=== PATIENT | female | born 1935 | race Caucasian/White ===

== ENCOUNTER 2016-09-12 08:18 | Inpatient (IN) | payer MEDICARE, OTHER ==
[2016-09-12] MEDS ORDERED: guaiFENesin 100 MG/5 ML Soln 5 ML UD Cup PO PRN (17:33)
[2016-09-12] MEDS ORDERED: Morphine 2 MG/ML Syringe IVPUSH PRN (17:33)
[2016-09-12] MEDS ORDERED: Docusate Sodium 100 MG Cap PO PRN (17:33)
[2016-09-12] MEDS ORDERED: Sodium Chloride 0.65% Nasal Spray 45 ML Bottle NAS PRN (17:33)
[2016-09-12] MEDS ORDERED: Sodium Chloride 0.9% 10 ML Syringe FLUSH PRN (17:33)
[2016-09-12] MEDS ORDERED: Polyethylene Glycol 3350 Powder 17 GM Packet PO PRN (17:33)
[2016-09-12] MEDS ORDERED: Magnesium Hydroxide 400 MG/5 ML Susp 30 ML Cup PO PRN (17:33)
[2016-09-12] MEDS ORDERED: Ondansetron 4 MG Tab.DIS PO PRN (17:45)
--- NOTE | 2016-09-12 17:45 | PCM.HP ---
H&P History of Present Illness - General Date of Service: 09/12/16 Admit Problem/Dx: Admission Diagnosis/Problem Admission Diagnosis/Problem Hip pain Source of Information: Patient History Limitations: Reports: No limitations - History of Present Illness Initial Comments - Free Text/Narative: 9-year-old female with the past medical history over a drip fibrillation, coronary artery disease without stent, GERD, depression, possible dementia presented to swing bed for postsurgical care after she underwent elective right total hip arthroplasty and abductor repair on 09/09/[address] Rg. She had an eventful postop recovery. the patient declined any symptoms other than some right hip pain which she did not want pain medicine for at this time. Right Hip Pain Score (Numeric/FACES): 6 - Related Data Allergies/Adverse Reactions: Allergies Allergy/AdvReac Type Severity Reaction Status Date / Time amoxicillin [Amoxicillin] Allergy Intermediate Nausea and Verified 09/12/16 10: 34 Vomiting codeine Allergy Intermediate Nausea and Verified 09/12/16 10:34 Vomiting propoxyphene Allergy Intermediate Nausea and Verified 09/12/16 10:34 Vomiting nitrofurantoin Allergy Nausea and Verified 09/12/16 10:34 Vomiting tramadol Allergy Nausea and Verified 09/12/16 10:34 Vomiting Home Medications: Home Meds Donepezil [Aricept] 10 mg PO BEDTIME 04/16/13 [History] Gabapentin [Neurontin] 300 mg PO TID 04/16/13 [History] Montelukast [Singulair] 10 mg PO BEDTIME 04/16/13 [History] Omeprazole 20 mg PO DAILY 04/16/13 [History] Potassium Chloride [Klor-Con 10] 10 meq PO BID 04/16/13 [History] Warfarin [Coumadin] 4 mg PO DAILY 04/16/13 [History] atorvaSTATin [Lipitor] 20 mg PO BEDTIME 04/16/13 [History] buPROPion [Wellbutrin XL] 150 mg PO DAILY 04/16/13 [History] Acetaminophen [Tylenol Extra Strength] 1,000 mg PO BID 09/12/16 [History] Ascorbate Calcium [Vitamin C] 500 mg PO DAILY 09/12/16 [History] Calcium Carbonate/Vitamin D3 [Calcium 600 + Vit D 200] 1 tab PO DAILY 09/12/16 [ History] Cranberry Con&Fr/B.Coag/C/Calc [Cranberry-Probiotic] 1 tab PO DAILY 09/12/16 [ History] Cyanocobalamin (Vitamin B-12) [Vitamin B-12] 500 mg PO BEDTIME 09/12/16 [History ] Estrogens, Conjugated [Premarin Vaginal Crm] 1 cap VAG .TWICE A WEEK 09/12/16 [ History] L.acidoph,Paracasei, B.lactis [Probiotic] 1 each PO BID 09/12/16 [History] LORazepam [Ativan] 1 mg PO BEDTIME PRN 09/12/16 [History] Ondansetron HCl [Zofran] 4 mg PO Q8HR PRN 09/12/16 [History] Sennosides/Docusate Sodium [Senna-Docusate Sodium Tablet] 2 tab PO BID 09/12/16 [History] oxyCODONE 10 mg PO Q4H PRN 09/12/16 [History] Past Medical History HEENT History: Reports: Impaired vision Cardiovascular History: Reports: Afib, CAD, Heart Failure, High cholesterol, Pacemaker Gastrointestinal History: Reports: GERD Genitourinary History: Reports: Urinary incontinence, UTI, recurrent, Other ( see below) Other Genitourinary History: overactive bladder INSOLE CEMENTER History: Reports: , Other (see below) Other OB/BYN History: ovarian cyst removal Musculoskeletal History: Reports: Back pain, chronic, Fibromyalgia, Osteoarthritis Psychiatric History: Reports: Anxiety, Depression Endocrine/Metabolic History: Reports: Obesity/BMI 30+ Hematologic History: Reports: Anemia, B12 deficiency - Infectious Disease History Infectious Disease History: Reports: Chicken pox, Measles, Mumps - Past Surgical History GI Surgical History: Reports: Appendectomy Female Surgical History: Reports: Hysterectomy, Other (see below) Other Female Surgeries/Procedures: cystourethroscopy Musculoskeletal Surgical History: Reports: Knee replacement, Other (see below) Other Musculoskeletal Surgeries/Procedures:: total right and left knee replacement, spinal stenosis, bursitis of right hip Social & Family History - Family History Family Medical History: Noncontributory - Tobacco Use Smoking Status *Q: Never Smoker Second Hand Smoke Exposure: No - Caffeine Use Caffeine Use: Reports: Coffee - Recreational Drug Use Recreational Drug Use: No H&P Review of Systems - Review of Systems: Review Of Systems: See Below General: Reports: no symptoms HEENT: Reports: no symptoms Pulmonary: Reports: No Symptoms Cardiovascular: Reports: no symptoms Gastrointestinal: Reports: No symptoms Genitourinary: Reports: no symptoms Musculoskeletal: Reports: no symptoms (except for the right hip pain from surgery) Skin: Reports: no symptoms Psychiatric: Reports: no symptoms Neurological: Reports: No Symptoms Hematologic/Lymphatic: Reports: no symptoms Immunologic: Reports: no symptoms Exam - Exam Exam: See Below - Vital Signs Vital Signs: Last Vital Signs Temp 37.4 C 09/12/16 15:37 Pulse 70 09/12/16 15:37 Resp 18 09/12/16 15:37 BP 132/65 09/12/16 15:37 Pulse Ox 99 09/12/16 15:37 Weight: 88.904 kg - Exam General: alert, oriented, cooperative. No: mild distress, moderate distress, severe distress, sedated, lethargic, obtunded HEENT: Conjunctiva clear, EACs clear, EOMI, Hearing intact, Mucosa moist & pink , Nares patent, Normal nasal septum, Posterior pharynx clear, Pupils equal, Pupils reactive, TMs clear Neck: supple, trachea midline Lungs: Clear to auscultation, Normal respiratory effort Cardiovascular: regular rate, regular rhythm Abdomen: normal bowel sounds, soft. No: organomegaly, peritoneal signs, distention, guarding, rigidity, rebound, tenderness (Female) Exam: Deferred Rectal (Female) Exam: Deferred Back Exam: normal inspection, full range of motion Extremities: normal pulses, other (right hip the dressing is in clean and intact there is a ecchymosis around the incision. No signs of infection. There is expected postsurgical edema in the right lower extremity). No: clubbing, cyanosis, calf tenderness Neurological: cranial nerves intact, strength equal bilateral Neuro Extensive - Mental Status: alert, oriented x3, normal mood/affect, normal cognition Neuro Extensive - Motor, Sensory, Reflexes: CN II-XII intact, normal reflexes Psychiatric: alert, normal affect, normal mood *Q Meaningful Use (ADM) - VTE *Q VTE Criteria *Q: - Stroke *Q Stroke Criteria *Q: - AMI *Q AMI Criteria *Q: Problem List Initiated/Reviewed/Updated: Yes Orders Last 24hrs: Active Orders 24 hr Category Date Time Status Patient Status [ADT] Routine ADT 09/12/16 17:34 Ordered Antiembolic Devices [RC] PER UNIT ROUTINE Care 09/12/16 17:39 Ordered Height and Weight [RC] WEEKLY Care 09/12/16 17:37 Ordered Intake and Output [RC] ASDIRECTED Care 09/12/16 17:33 Ordered May Shower [RC] ASDIRECTED Care 09/12/16 17:33 Ordered Oxygen Therapy [RC] PRN Care 09/12/16 17:34 Ordered Up With Assistance [RC] ASDIRECTED Care 09/12/16 17:33 Ordered Up ad Dalia [RC] ASDIRECTED Care 09/12/16 17:33 Ordered VTE/DVT Education [RC] PER UNIT ROUTINE Care 09/12/16 17:34 Ordered Vital Signs [RC] PER UNIT ROUTINE Care 09/12/16 17:34 Ordered Consult to Pharmacy [CONS] Routine Cons 09/12/16 17:32 Ordered OT Evaluation and Treatment [CONS] Routine Cons 09/12/16 17:33 Ordered PT Evaluation and Treatment [CONS] Routine Cons 09/12/16 17:33 Ordered Regular Diet [DIET] Diet 09/12/16 Breakfast Ordered Acetaminophen [Tylenol Extra Strength] Med 09/12/16 21:00 Ordered 1,000 mg PO BID Ascorbate Calcium [Vitamin C] Med 09/13/16 09:00 Ordered 500 mg PO DAILY Calcium Carbonate/Vitamin D3 Med 09/13/16 09:00 Ordered 1 tab PO DAILY Cranberry Con&Fr/B.Coag/C/Calc [Cranberry-Probiotic] Med 09/13/16 09:00 Ordered 1 tab PO DAILY Cyanocobalamin (Vitamin B-12) [Vitamin B-12] Med 09/12/16 21:00 Ordered 500 mg PO BEDTIME Docusate Sodium [Colace] Med 09/12/16 17:33 Ordered 100 mg PO BID PRN Docusate Sodium/Sennosides [Senna Plus] Med 09/12/16 21:00 Ordered 2 tab PO BID Donepezil [Aricept] Med 09/12/16 21:00 Ordered 10 mg PO BEDTIME Enoxaparin [Lovenox] Med 09/12/16 21:00 Ordered 80 mg SUBCUT Q12HR Estrogens, Conjugated [Premarin Vaginal Crm] Med 09/12/16 17:30 Ordered 1 cap VAG .TWICE A WEEK Gabapentin [Neurontin] Med 09/12/16 21:00 Ordered 300 mg PO TID L.acidoph,Paracasei, B.lactis [Probiotic] Med 09/12/16 21:00 Ordered 1 each PO BID LORazepam [Ativan] Med 09/12/16 17:24 Ordered 1 mg PO BEDTIME PRN Magnesium Hydroxide [Milk of Magnesia] Med 09/12/16 17:33 Ordered 30 ml PO Q12H PRN Montelukast [Singulair] Med 09/12/16 21:00 Ordered 10 mg PO BEDTIME Morphine Med 09/12/16 17:33 Ordered 2 mg IVPUSH Q2H PRN Omeprazole Med 09/13/16 09:00 Ordered 20 mg PO DAILY Ondansetron HCl Med 09/12/16 17:24 Ordered 4 mg PO Q8HR PRN Ondansetron [Zofran ODT] Med 09/12/16 17:33 Ordered 4 mg PO Q6H PRN Polyethylene Glycol 3350 [MiraLAX] Med 09/12/16 17:33 Ordered 17 gm PO DAILY PRN Potassium Chloride [Klor-Con 10] Med 09/12/16 21:00 Ordered 10 meq PO BID Sodium Chloride 0.65% [[place] Nasal [place]] Med 09/12/16 17:33 Ordered 1 ml EVELYNE BID PRN Sodium Chloride 0.9% [Saline Flush] Med 09/12/16 17:33 Ordered 10 ml FLUSH ASDIRECTED PRN Warfarin [Coumadin] Med 09/13/16 09:00 Ordered 4 mg PO DAILY Zolpidem [Ambien] Med 09/12/16 17:33 Ordered 5 mg PO BEDTIME PRN atorvaSTATin [Lipitor] Med 09/12/16 21:00 Ordered 20 mg PO BEDTIME buPROPion [Wellbutrin XL] Med 09/13/16 09:00 Ordered 150 mg PO DAILY guaiFENesin [Robitussin] Med 09/12/16 17:33 Ordered 100 mg PO Q4H PRN oxyCODONE Med 09/12/16 17:24 Ordered 10 mg PO Q4H PRN Antiembolic Hose [OM.PC] Routine Oth 09/12/16 17:33 Ordered Saline Lock Insert [OM.PC] Routine Oth 09/12/16 17:33 Ordered Resuscitation Status Routine Resus Stat 09/12/16 17:33 Ordered Medication Orders Acetaminophen (Tylenol Extra Strength) 1,000 mg PO BID STEVE Ascorbic Acid (Vitamin C) 500 mg PO DAILY STEVE Atorvastatin Calcium (Lipitor) 20 mg PO BEDTIME STEVE Bupropion HCl (Wellbutrin Xl) 150 mg PO DAILY STEVE Calcium Carbonate (Calcium Carbonate/Vitamin D 1250 Mg-200 Unit) 1 tab PO DAILY STEVE Donepezil HCl (Aricept) 10 mg PO BEDTIME STEVE Gabapentin (Neurontin) 300 mg PO TID STEVE Lorazepam (Ativan) 1 mg PO BEDTIME PRN PRN Reason: Anxiety Montelukast Sodium (Singulair) 10 mg PO BEDTIME STEVE Non-Formulary Medication (Cranberry Con&Fr/B.Coag/C/Calc [Cranberry-Probiotic]) 1 tab PO DAILY STEVE Non-Formulary Medication (Cyanocobalamin (Vitamin B-12) [Vitamin B-12]) 500 mg PO BEDTIME STEVE Non-Formulary Medication (Estrogens, Conjugated [Premarin Vaginal Crm]) 1 cap VAG .TWICE A WEEK STEVE Non-Formulary Medication (L.Acidoph,Paracasei, B.Lactis [Probiotic]) 1 each PO BID STEVE Omeprazole (Omeprazole) 20 mg PO DAILY STEVE Ondansetron HCl (Zofran Odt) 4 mg PO Q8H PRN PRN Reason: NAUSEA Oxycodone HCl (Oxycodone) 10 mg PO Q4H PRN PRN Reason: Pain Potassium Chloride (Klor-Con 10) 10 meq PO BID STEVE Senna/Docusate Sodium (Senna Plus) 2 tab PO BID STEVE Warfarin Sodium (Coumadin) 4 mg PO DAILY [facility] Assessment/Plan Comment:: Right hip osteoarthritis status post elective right total hip arthroplasty and abductor repair on 09/09/2016. weightbearing as tolerated Continue physical occupational therapy DVT prophylaxis with anticoagulation and VICTOR MANUEL hose Anemia Acute. Suspect from blood loss in surgery. Hgb stable Permanent AF S/p AVN ablation. S/p Bi-V PPM due to difficult to control AF. Anticoagulation with coumadin. we'll use Lovenox until Coumadin is therapeutic.pharmacy is consulted to do his Coumadin CAD No hx of [place] or stents. Continue home statin. Not on aspirin/plavix. she is being followed by Dr. Chavez HTN controlled Without medications Will watch clinically Hx of CHF Subjective. she was seen by Dr. Chavez recently we found that her echo was normal. she does not have signs and symptoms of congestive heart failure. She was performed by Dr. Chavez that she can stop Lasix and spell at home according to her GERD Continue PPI Depression Continue Wellbutrin Dementia Continue Aricept Neuropathy Continue gabapentin Leg ecchymosis Related to harness in surgery. watch clinically Patient wants to be DNR.
[2016-09-12] MEDS: oxyCODONE 5 MG Tab PO PRN ×2 (18:13→23:56)
[2016-09-12] MEDS: Gabapentin 300 MG Cap PO SCH (20:34)
[2016-09-12] MEDS: Ciprofloxacin 500 MG Tab PO SCH (20:34)
[2016-09-12] MEDS: Acetaminophen 500 MG Tab PO SCH (20:35)
[2016-09-12] MEDS: Montelukast 10 MG Tab PO SCH (20:35)
[2016-09-12] MEDS: Potassium Chloride 10 MEQ Tab.ER PO SCH (20:35)
[2016-09-12] MEDS: atorvaSTATin 20 MG Tab PO SCH (20:35)
[2016-09-12] MEDS: Donepezil 10 MG Tab PO SCH (20:35)
[2016-09-12] MEDS: Enoxaparin 80 MG/0.8 ML Syringe SUBCUT SCH (20:42)
[2016-09-12] MEDS: LORazepam 1 MG Tab PO PRN (23:55)
[2016-09-13] MEDS: oxyCODONE 5 MG Tab PO PRN ×4 (05:13→21:33)
[2016-09-13] MEDS: Acetaminophen 500 MG Tab PO SCH ×2 (10:50→21:34)
[2016-09-13] MEDS: Ciprofloxacin 500 MG Tab PO SCH ×2 (10:51→21:31)
[2016-09-13] MEDS: buPROPion 150 MG Tab.ER PO SCH (10:52)
[2016-09-13] MEDS: Potassium Chloride 10 MEQ Tab.ER PO SCH ×2 (10:53→21:32)
[2016-09-13] MEDS: Gabapentin 300 MG Cap PO SCH ×3 (10:53→21:32)
[2016-09-13] MEDS: Calcium Carbonate/Vitamin D3 1250 MG-200 Unit Tab PO SCH (10:53)
[2016-09-13] MEDS: Omeprazole 20 MG Cap.CR PO SCH (10:53)
[2016-09-13] MEDS: Enoxaparin 80 MG/0.8 ML Syringe SUBCUT SCH ×2 (10:54→21:32)
[2016-09-13] MEDS: Ascorbic Acid 500 MG Tab PO SCH (10:54)
[2016-09-13] MEDS ORDERED: Warfarin 5 MG Tab PO ONE (14:00)
[2016-09-13] MEDS ORDERED: Warfarin 2 MG Tab PO SCH (14:00)
[2016-09-13] MEDS: Cyanocobalamin (Vitamin B12) 100 MCG Tab PO SCH ×2 (17:28→21:30)
[2016-09-13] MEDS: LORazepam 1 MG Tab PO PRN (21:30)
[2016-09-13] MEDS: Montelukast 10 MG Tab PO SCH (21:31)
[2016-09-13] MEDS: atorvaSTATin 20 MG Tab PO SCH (21:31)
[2016-09-13] MEDS: Donepezil 10 MG Tab PO SCH (21:32)
[2016-09-14] MEDS: oxyCODONE 5 MG Tab PO PRN ×5 (02:22→22:49)
[2016-09-14] MEDS: Calcium Carbonate/Vitamin D3 1250 MG-200 Unit Tab PO SCH (10:39)
[2016-09-14] MEDS: Potassium Chloride 10 MEQ Tab.ER PO SCH ×2 (10:41→22:35)
[2016-09-14] MEDS: Ciprofloxacin 500 MG Tab PO SCH ×2 (10:41→22:35)
[2016-09-14] MEDS: Enoxaparin 80 MG/0.8 ML Syringe SUBCUT SCH ×2 (10:42→22:34)
[2016-09-14] MEDS: Gabapentin 300 MG Cap PO SCH ×3 (10:42→22:34)
[2016-09-14] MEDS: buPROPion 150 MG Tab.ER PO SCH (10:43)
[2016-09-14] MEDS: Ascorbic Acid 500 MG Tab PO SCH (10:43)
[2016-09-14] MEDS: Omeprazole 20 MG Cap.CR PO SCH (10:43)
[2016-09-14] MEDS: Acetaminophen 500 MG Tab PO SCH ×2 (10:43→22:31)
[2016-09-14] MEDS ORDERED: Warfarin 2.5 MG Tab PO ONE (14:00)
[2016-09-14] MEDS: [UNRECOGNIZED DRUG - OTHER] PO SCH (17:23)
[2016-09-14] MEDS: atorvaSTATin 20 MG Tab PO SCH (22:33)
[2016-09-14] MEDS: Donepezil 10 MG Tab PO SCH (22:35)
[2016-09-14] MEDS: Montelukast 10 MG Tab PO SCH (22:36)
[2016-09-14] MEDS: Cyanocobalamin (Vitamin B12) 100 MCG Tab PO SCH (22:36)
[2016-09-14] MEDS: LORazepam 1 MG Tab PO PRN (22:36)
[2016-09-14] MEDS: WOMEN S PROBIOTIC PO SCH (22:37)
[2016-09-15] MEDS: Enoxaparin 80 MG/0.8 ML Syringe SUBCUT SCH ×2 (10:19→20:55)
[2016-09-15] MEDS: Calcium Carbonate/Vitamin D3 1250 MG-200 Unit Tab PO SCH (10:19)
[2016-09-15] MEDS: Potassium Chloride 10 MEQ Tab.ER PO SCH ×2 (10:19→20:55)
[2016-09-15] MEDS: Ciprofloxacin 500 MG Tab PO SCH ×2 (10:19→20:54)
[2016-09-15] MEDS: Gabapentin 300 MG Cap PO SCH ×3 (10:20→20:56)
[2016-09-15] MEDS: Omeprazole 20 MG Cap.CR PO SCH (10:20)
[2016-09-15] MEDS: oxyCODONE 5 MG Tab PO PRN ×3 (10:21→22:15)
[2016-09-15] MEDS: Ascorbic Acid 500 MG Tab PO SCH (10:21)
[2016-09-15] MEDS: Acetaminophen 500 MG Tab PO SCH ×2 (10:22→20:54)
[2016-09-15] MEDS: [UNRECOGNIZED DRUG - OTHER] PO SCH (10:23)
[2016-09-15] MEDS: WOMEN S PROBIOTIC PO SCH ×2 (10:24→20:56)
[2016-09-15] MEDS: buPROPion 150 MG Tab.ER PO SCH (11:34)
[2016-09-15] MEDS: Mineral Oil/Petrolatum/Phenylephrine/Shark Liver Oil Oint 57 GM Tube RECTAL PRN (13:39)
[2016-09-15] MEDS ORDERED: Warfarin 5 MG Tab PO SCH (14:00)
[2016-09-15] MEDS: Montelukast 10 MG Tab PO SCH (20:53)
[2016-09-15] MEDS: atorvaSTATin 20 MG Tab PO SCH (20:53)
[2016-09-15] MEDS: Cyanocobalamin (Vitamin B12) 100 MCG Tab PO SCH (20:55)
[2016-09-15] MEDS: Donepezil 10 MG Tab PO SCH (20:55)
[2016-09-15] MEDS: LORazepam 1 MG Tab PO PRN (22:15)
[2016-09-16] MEDS ORDERED: ESTROGENS CONJUGATED VAG SCH (09:00)
--- NOTE | 2016-09-16 09:31 | PCM.PN ---
- General Info Date of Service: 09/16/16 Admission Dx/Problem (Free Text): Admission Diagnosis/Problem Admission Diagnosis/Problem Hip pain Subjective Update: patient has no complaint however she reported that the blister on her right leg is getting bigger. Patient admits that the redness of the right leg gets worse after surgery. she had medial left leg bruising that she had after surgery. she is in ciprofloxacin for possible UTI - Review of Systems General: Reports: No Symptoms HEENT: Reports: no symptoms Pulmonary: Reports: no symptoms Cardiovascular: Reports: No Symptoms Gastrointestinal: Reports: No symptoms Genitourinary: Reports: no symptoms Skin: Reports: other (see history of present illness for left leg.). Denies: cyanosis, diaphoresis Psychiatric: Reports: no symptoms - Patient Data Vitals - most recent: Last Vital Signs Temp 36.3 C 09/16/16 07:50 Pulse 70 09/16/16 07:50 Resp 20 09/16/16 07:50 BP 135/62 09/16/16 07:50 Pulse Ox 97 09/16/16 07:50 Weight - most recent: 87.549 kg I&O - last 24 hours: Intake & Output 09/15/16 09/16/16 09/16/16 22:59 06:59 14:59 Intake Total 300 450 Balance 300 450 Lab Results last 24 hrs: Laboratory Results - last 24 hr 09/16/16 Range/Units 06:12 PT 19.8 H (9.0-12.0) SEC INR 2.0 H (0.9-1.2) Med Orders - Current: Current Medications Acetaminophen (Tylenol Extra Strength) 1,000 mg PO BID [facility] Last Admin: 09/15/16 20:54 Dose: 1,000 mg Ascorbic Acid (Vitamin C) 500 mg PO DAILY [facility] Last Admin: 09/15/16 10:21 Dose: 500 mg Atorvastatin Calcium (Lipitor) 20 mg PO BEDTIME [facility] Last Admin: 09/15/16 20:53 Dose: 20 mg Bupropion HCl (Wellbutrin Xl) 150 mg PO DAILY [facility] Last Admin: 09/15/16 11:34 Dose: 150 mg Calcium Carbonate (Calcium Carbonate/Vitamin D 1250 Mg-200 Unit) 1 tab PO DAILY [facility] Last Admin: 09/15/16 10:19 Dose: 1 tab Ciprofloxacin (Ciprofloxacin Hcl) 500 mg PO BID [facility] Last Admin: 09/15/16 20:54 Dose: 500 mg Cyanocobalamin (Vitamin B12) 500 mcg PO BEDTIME [facility] Last Admin: 09/15/16 20:55 Dose: 500 mcg Docusate Sodium (Colace) 100 mg PO BID PRN PRN Reason: Constipation Donepezil HCl (Aricept) 10 mg PO BEDTIME [facility] Last Admin: 09/15/16 20:55 Dose: 10 mg Enoxaparin Sodium (Lovenox) 80 mg SUBCUT Q12HR [facility] Last Admin: 09/15/16 20:55 Dose: 80 mg Gabapentin (Neurontin) 300 mg PO TID [facility] Last Admin: 09/15/16 20:56 Dose: 300 mg Guaifenesin (Robitussin) 100 mg PO Q4H PRN PRN Reason: Cough Lorazepam (Ativan) 1 mg PO BEDTIME PRN PRN Reason: Anxiety Last Admin: 09/15/16 22:15 Dose: 1 mg Magnesium Hydroxide (Milk Of Magnesia) 30 ml PO Q12H PRN PRN Reason: Constipation Montelukast Sodium (Singulair) 10 mg PO BEDTIME [facility] Last Admin: 09/15/16 20:53 Dose: 10 mg Omeprazole (Omeprazole) 20 mg PO DAILY [facility] Last Admin: 09/15/16 10:20 Dose: 20 mg Ondansetron HCl (Zofran Odt) 4 mg PO Q6H PRN PRN Reason: nausea, able to take PO Oxycodone HCl (Oxycodone) 10 mg PO Q4H PRN PRN Reason: Pain Last Admin: 09/15/16 22:15 Dose: 10 mg Cranberry With Vitamin CPt's Own Med 0 each PO DAILY [facility] Last Admin: 09/15/16 10:23 Dose: 1 each Estrogens, Conjugated [Premarin Vaginal Crm]Pt's Own Med 0 each VAG MoFr@ 0900 [facility] Women's Probiotic (Pt's Own Med) 1 each PO BID [facility] Last Admin: 09/15/16 20:56 Dose: 1 each Phenyleph/Shark Oil/Min Oil/Petrol (Preparation H Oint) 0 gm RECTAL ASDIRECTED PRN PRN Reason: for hemmorroids Last Admin: 09/15/16 13:39 Dose: 1 applic Polyethylene Glycol (Miralax) 17 gm PO DAILY PRN PRN Reason: Constipation Potassium Chloride (Klor-Con 10) 10 meq PO BID [facility] Last Admin: 09/15/16 20:55 Dose: 10 meq Senna/Docusate Sodium (Senna Plus) 2 tab PO BID [facility] Last Admin: 09/15/16 20:55 Dose: 2 tab Sodium Chloride ([place] Nasal [place]) 1 ml EVELYNE BID PRN PRN Reason: Nasal Congestion Warfarin Sodium (Pharmacy To Dose - Warfarin) 0 dose PO ASDIRECTED [facility] Zolpidem Tartrate (Ambien) 5 mg PO BEDTIME PRN PRN Reason: Sleep Discontinued Medications Morphine Sulfate (Morphine) 2 mg IVPUSH Q2H PRN PRN Reason: Pain (severe 7-10) Sodium Chloride (Saline Flush) 10 ml FLUSH ASDIRECTED PRN PRN Reason: Keep Vein Open Warfarin Sodium (Coumadin) 4 mg PO DAILY@1400 [facility] Warfarin Sodium (Coumadin) 5 mg PO ONETIME ONE Stop: 09/13/16 14:01 Last Admin: 09/13/16 15:27 Dose: 5 mg Warfarin Sodium (Coumadin) 7.5 mg PO ONETIME ONE Stop: 09/14/16 14:01 Last Admin: 09/14/16 14:47 Dose: 7.5 mg Warfarin Sodium (Coumadin) 5 mg PO DAILY@1400 [facility] Stop: 09/15/16 14:01 Last Admin: 09/15/16 13:38 Dose: 5 mg - Exam General: alert, oriented, cooperative, no acute distress. No: mild distress, moderate distress, severe distress, sedated, lethargic, obtunded HEENT: Pupils equal, Pupils reactive, EOMI, Mucous membr. moist/pink Neck: supple, trachea midline, no JVD Lungs: Clear to auscultation, Normal respiratory effort Cardiovascular: Regular Rate, Regular Rhythm Abdomen: bowel sounds present, soft, no tenderness, no distension (Female) Exam: Deferred Back Exam: Normal Inspection, Full Range of Motion Extremities: normal pulses, no clubbing, no cyanosis, no calf tenderness, other (mild postsurgical right lower extremitiy edema. She has large medial left leg blister that is ruptured with light yellow drainage. There is bruising and redness around the blister. There is small bruise on the medial right lower extremity without sign of infection and no blister is seen in) Neurological: no new focal deficit Psy/Mental Status: alert, normal affect, normal mood - Problem List Review Problem List Initiated/Reviewed/Updated: Yes - My Orders Last 24 Hours: My Active Orders 09/16/16 09:00 Patient's Own Medication [Ptom] 0 each VAG MoFr@0900 09/16/16 09:08 OT Evaluation and Treatment [CONS] Routine 09/17/16 10:45 INR,PT,PROTHROMBIN TIME [COAG] DAILY 09/18/16 10:45 INR,PT,PROTHROMBIN TIME [COAG] DAILY 09/19/16 10:45 INR,PT,PROTHROMBIN TIME [COAG] DAILY - Plan Plan:: Right hip osteoarthritis status post elective right total hip arthroplasty and abductor repair on 09/09/2016. weightbearing as tolerated Continue physical occupational therapy DVT prophylaxis with anticoagulation and VICTOR MANUEL hose Right leg blister and erythema, superimposed cellulitis cannot be excluded -I will do Gram stain and culture from the blister -Continue with Cipro until culture result comes back Bilateral extremity bruise, most likely from maneuver during surgery, at least according to patient Patient is on anticoagulation We will do lymphedema wrap and improve circulation Anemia Acute. Suspect from blood loss in surgery. Hgb stable Permanent AF S/p AVN ablation. S/p Bi-V PPM due to difficult to control AF. Anticoagulation with coumadin. we'll use Lovenox until Coumadin is therapeutic.pharmacy is consulted to do his Coumadin CAD No hx of [place] or stents. Continue home statin. Not on aspirin/plavix. she is being followed by Dr. Chavez HTN controlled Without medications Will watch clinically Hx of CHF Subjective. she was seen by Dr. Chavez recently we found that her echo was normal. she does not have signs and symptoms of congestive heart failure. She was performed by Dr. Chavez that she can stop Lasix and spell at home according to her GERD Continue PPI Depression Continue Wellbutrin Dementia Continue Aricept Neuropathy Continue gabapentin Leg ecchymosis Related to harness in surgery. watch clinically Patient wants to be DNR.
[2016-09-16] MEDS: Gabapentin 300 MG Cap PO SCH ×3 (09:34→22:00)
[2016-09-16] MEDS: oxyCODONE 5 MG Tab PO PRN ×3 (09:35→22:09)
[2016-09-16] MEDS: Ciprofloxacin 500 MG Tab PO SCH ×2 (09:35→22:00)
[2016-09-16] MEDS: Omeprazole 20 MG Cap.CR PO SCH (09:35)
[2016-09-16] MEDS: Calcium Carbonate/Vitamin D3 1250 MG-200 Unit Tab PO SCH (09:35)
[2016-09-16] MEDS: buPROPion 150 MG Tab.ER PO SCH (09:35)
[2016-09-16] MEDS: Potassium Chloride 10 MEQ Tab.ER PO SCH ×2 (09:35→22:00)
[2016-09-16] MEDS: Ascorbic Acid 500 MG Tab PO SCH (09:35)
[2016-09-16] MEDS: Enoxaparin 80 MG/0.8 ML Syringe SUBCUT SCH ×2 (09:36→22:12)
[2016-09-16] MEDS: Acetaminophen 500 MG Tab PO SCH ×2 (09:36→22:07)
[2016-09-16] MEDS: [UNRECOGNIZED DRUG - OTHER] PO SCH (09:39)
[2016-09-16] MEDS: WOMEN S PROBIOTIC PO SCH ×2 (09:40→22:11)
[2016-09-16] MEDS: Mineral Oil/Petrolatum/Phenylephrine/Shark Liver Oil Oint 57 GM Tube RECTAL PRN ×3 (09:50→21:58)
[2016-09-16] MEDS: Ondansetron 4 MG Tab.DIS PO PRN (11:57)
[2016-09-16] MEDS ORDERED: Warfarin 5 MG Tab PO ONE (14:00)
[2016-09-16] MEDS: atorvaSTATin 20 MG Tab PO SCH (22:00)
[2016-09-16] MEDS: Montelukast 10 MG Tab PO SCH (22:00)
[2016-09-16] MEDS: Cyanocobalamin (Vitamin B12) 100 MCG Tab PO SCH (22:01)
[2016-09-16] MEDS: LORazepam 1 MG Tab PO PRN (22:10)
[2016-09-16] MEDS: Donepezil 10 MG Tab PO SCH (22:14)
[2016-09-16] MEDS: ESTRADIOL VAG SCH (22:18)
[2016-09-17] MEDS: Gabapentin 300 MG Cap PO SCH ×3 (09:16→21:51)
[2016-09-17] MEDS: Potassium Chloride 10 MEQ Tab.ER PO SCH ×2 (09:16→21:48)
[2016-09-17] MEDS: buPROPion 150 MG Tab.ER PO SCH (09:16)
[2016-09-17] MEDS: Calcium Carbonate/Vitamin D3 1250 MG-200 Unit Tab PO SCH (09:16)
[2016-09-17] MEDS: Omeprazole 20 MG Cap.CR PO SCH (09:17)
[2016-09-17] MEDS: Ascorbic Acid 500 MG Tab PO SCH (09:17)
[2016-09-17] MEDS: Ciprofloxacin 500 MG Tab PO SCH ×2 (09:17→21:49)
[2016-09-17] MEDS: Acetaminophen 500 MG Tab PO SCH ×3 (09:18→21:58)
[2016-09-17] MEDS: oxyCODONE 5 MG Tab PO PRN ×3 (09:18→22:01)
[2016-09-17] MEDS: [UNRECOGNIZED DRUG - OTHER] PO SCH (09:20)
[2016-09-17] MEDS: WOMEN S PROBIOTIC PO SCH ×2 (09:20→21:58)
[2016-09-17] MEDS: Mineral Oil/Petrolatum/Phenylephrine/Shark Liver Oil Oint 57 GM Tube RECTAL PRN (09:21)
[2016-09-17] MEDS: Enoxaparin 80 MG/0.8 ML Syringe SUBCUT SCH (09:38)
[2016-09-17] MEDS ORDERED: Warfarin 2 MG Tab PO ONE (14:00)
[2016-09-17] MEDS: atorvaSTATin 20 MG Tab PO SCH (21:49)
[2016-09-17] MEDS: Cyanocobalamin (Vitamin B12) 100 MCG Tab PO SCH (21:49)
[2016-09-17] MEDS: Montelukast 10 MG Tab PO SCH (21:49)
[2016-09-17] MEDS: Donepezil 10 MG Tab PO SCH (21:50)
[2016-09-17] MEDS: LORazepam 1 MG Tab PO PRN (22:03)
[2016-09-18] MEDS: Ascorbic Acid 500 MG Tab PO SCH (09:12)
[2016-09-18] MEDS: buPROPion 150 MG Tab.ER PO SCH (09:12)
[2016-09-18] MEDS: Calcium Carbonate/Vitamin D3 1250 MG-200 Unit Tab PO SCH (09:12)
[2016-09-18] MEDS: Omeprazole 20 MG Cap.CR PO SCH (09:13)
[2016-09-18] MEDS: Potassium Chloride 10 MEQ Tab.ER PO SCH ×2 (09:13→21:05)
[2016-09-18] MEDS: Gabapentin 300 MG Cap PO SCH ×3 (09:14→21:06)
[2016-09-18] MEDS: Ciprofloxacin 500 MG Tab PO SCH ×2 (09:14→21:07)
[2016-09-18] MEDS: oxyCODONE 5 MG Tab PO PRN ×2 (09:15→21:12)
[2016-09-18] MEDS: Acetaminophen 500 MG Tab PO SCH ×2 (09:15→21:13)
[2016-09-18] MEDS: WOMEN S PROBIOTIC PO SCH ×2 (09:17→21:11)
[2016-09-18] MEDS: Mineral Oil/Petrolatum/Phenylephrine/Shark Liver Oil Oint 57 GM Tube RECTAL PRN ×3 (09:17→21:11)
[2016-09-18] MEDS: [UNRECOGNIZED DRUG - OTHER] PO SCH (09:17)
[2016-09-18] MEDS ORDERED: Warfarin 5 MG Tab PO ONE (14:00)
[2016-09-18] MEDS: Cyanocobalamin (Vitamin B12) 100 MCG Tab PO SCH (21:03)
[2016-09-18] MEDS: Ondansetron 4 MG Tab.DIS PO PRN (21:03)
[2016-09-18] MEDS: Donepezil 10 MG Tab PO SCH (21:05)
[2016-09-18] MEDS: atorvaSTATin 20 MG Tab PO SCH (21:05)
[2016-09-18] MEDS: Montelukast 10 MG Tab PO SCH (21:06)
[2016-09-18] MEDS: LORazepam 1 MG Tab PO PRN (21:13)
[2016-09-19] MEDS: oxyCODONE 5 MG Tab PO PRN ×4 (01:59→23:41)
[2016-09-19] MEDS: Acetaminophen 500 MG Tab PO SCH ×2 (09:16→21:57)
[2016-09-19] MEDS: WOMEN S PROBIOTIC PO SCH ×2 (09:18→22:00)
[2016-09-19] MEDS: [UNRECOGNIZED DRUG - OTHER] PO SCH (09:18)
[2016-09-19] MEDS: buPROPion 150 MG Tab.ER PO SCH (09:19)
[2016-09-19] MEDS: Ascorbic Acid 500 MG Tab PO SCH (09:19)
[2016-09-19] MEDS: Omeprazole 20 MG Cap.CR PO SCH (09:19)
[2016-09-19] MEDS: Calcium Carbonate/Vitamin D3 1250 MG-200 Unit Tab PO SCH (09:19)
[2016-09-19] MEDS: Ciprofloxacin 500 MG Tab PO SCH ×2 (09:19→21:55)
[2016-09-19] MEDS: Gabapentin 300 MG Cap PO SCH ×3 (09:19→21:56)
[2016-09-19] MEDS: Potassium Chloride 10 MEQ Tab.ER PO SCH ×2 (09:19→21:55)
[2016-09-19] MEDS ORDERED: Warfarin 2 MG Tab PO ONE (14:00)
[2016-09-19] MEDS: Donepezil 10 MG Tab PO SCH (21:54)
[2016-09-19] MEDS: atorvaSTATin 20 MG Tab PO SCH (21:55)
[2016-09-19] MEDS: Montelukast 10 MG Tab PO SCH (21:56)
[2016-09-19] MEDS: Cyanocobalamin (Vitamin B12) 100 MCG Tab PO SCH (21:58)
[2016-09-19] MEDS: LORazepam 1 MG Tab PO PRN (23:40)
[2016-09-19] MEDS: ESTRADIOL VAG SCH (23:40)
[2016-09-20] MEDS: Ondansetron 4 MG Tab.DIS PO PRN ×2 (09:23→21:20)
[2016-09-20] MEDS: Ascorbic Acid 500 MG Tab PO SCH (09:24)
[2016-09-20] MEDS: Potassium Chloride 10 MEQ Tab.ER PO SCH ×2 (09:24→21:12)
[2016-09-20] MEDS: Omeprazole 20 MG Cap.CR PO SCH (09:24)
[2016-09-20] MEDS: [UNRECOGNIZED DRUG - OTHER] PO SCH (09:25)
[2016-09-20] MEDS: WOMEN S PROBIOTIC PO SCH ×2 (09:26→21:28)
[2016-09-20] MEDS: Calcium Carbonate/Vitamin D3 1250 MG-200 Unit Tab PO SCH (09:26)
[2016-09-20] MEDS: Ciprofloxacin 500 MG Tab PO SCH ×2 (09:26→21:12)
[2016-09-20] MEDS: Acetaminophen 500 MG Tab PO SCH ×2 (09:26→21:27)
[2016-09-20] MEDS: Gabapentin 300 MG Cap PO SCH ×3 (09:26→21:16)
[2016-09-20] MEDS: buPROPion 150 MG Tab.ER PO SCH (09:26)
[2016-09-20] MEDS: oxyCODONE 5 MG Tab PO PRN ×3 (09:27→23:17)
[2016-09-20] MEDS ORDERED: Warfarin 2 MG Tab PO ONE (14:00)
[2016-09-20] MEDS: Donepezil 10 MG Tab PO SCH (21:11)
[2016-09-20] MEDS: Cyanocobalamin (Vitamin B12) 100 MCG Tab PO SCH (21:12)
[2016-09-20] MEDS: Montelukast 10 MG Tab PO SCH (21:14)
[2016-09-20] MEDS: atorvaSTATin 20 MG Tab PO SCH (21:16)
[2016-09-20] MEDS: LORazepam 1 MG Tab PO PRN (23:18)
[2016-09-21] MEDS: Zolpidem 5 MG Tab PO PRN ×2 (00:34→23:03)
[2016-09-21] MEDS: Acetaminophen 500 MG Tab PO SCH ×2 (08:48→20:52)
[2016-09-21] MEDS: Calcium Carbonate/Vitamin D3 1250 MG-200 Unit Tab PO SCH (08:48)
[2016-09-21] MEDS: Ciprofloxacin 500 MG Tab PO SCH (08:48)
[2016-09-21] MEDS: Gabapentin 300 MG Cap PO SCH ×3 (08:48→20:53)
[2016-09-21] MEDS: Potassium Chloride 10 MEQ Tab.ER PO SCH ×2 (08:48→20:53)
[2016-09-21] MEDS: Ascorbic Acid 500 MG Tab PO SCH (08:48)
[2016-09-21] MEDS: Omeprazole 20 MG Cap.CR PO SCH (08:48)
[2016-09-21] MEDS: buPROPion 150 MG Tab.ER PO SCH (08:48)
[2016-09-21] MEDS: WOMEN S PROBIOTIC PO SCH ×2 (08:49→20:50)
[2016-09-21] MEDS: [UNRECOGNIZED DRUG - OTHER] PO SCH (08:49)
[2016-09-21] MEDS: Ondansetron 4 MG Tab.DIS PO PRN (10:19)
[2016-09-21] MEDS: oxyCODONE 5 MG Tab PO PRN ×3 (11:08→23:00)
[2016-09-21] MEDS: Doxycycline 100 MG Cap PO SCH ×2 (13:05→20:51)
[2016-09-21] MEDS ORDERED: Warfarin 2 MG Tab PO SCH (14:00)
[2016-09-21] MEDS: Cyanocobalamin (Vitamin B12) 100 MCG Tab PO SCH (20:51)
[2016-09-21] MEDS: atorvaSTATin 20 MG Tab PO SCH (20:52)
[2016-09-21] MEDS: Montelukast 10 MG Tab PO SCH (20:53)
[2016-09-21] MEDS: Donepezil 10 MG Tab PO SCH (20:53)
[2016-09-22] MEDS: Acetaminophen 500 MG Tab PO SCH (08:59)
[2016-09-22] MEDS: Gabapentin 300 MG Cap PO SCH (08:59)
[2016-09-22] MEDS: Ascorbic Acid 500 MG Tab PO SCH (09:01)
[2016-09-22] MEDS: Potassium Chloride 10 MEQ Tab.ER PO SCH (09:01)
[2016-09-22] MEDS: buPROPion 150 MG Tab.ER PO SCH (09:01)
[2016-09-22] MEDS: Calcium Carbonate/Vitamin D3 1250 MG-200 Unit Tab PO SCH (09:02)
[2016-09-22] MEDS: Omeprazole 20 MG Cap.CR PO SCH (09:02)
[2016-09-22] MEDS: Doxycycline 100 MG Cap PO SCH (09:03)
[2016-09-22] MEDS: [UNRECOGNIZED DRUG - OTHER] PO SCH (09:05)
[2016-09-22] MEDS: WOMEN S PROBIOTIC PO SCH (09:05)
[2016-09-22] MEDS: Ondansetron 4 MG Tab.DIS PO PRN (09:08)
[2016-09-22] MEDS: oxyCODONE 5 MG Tab PO PRN (10:35)
[2016-09-22 11:41] VITALS: BP 119/59
--- NOTE | 2016-09-23 04:57 | DISCH ---
ADMITTING DIAGNOSIS: The patient admitted to swing bed for continued physical therapy and occupational therapy after having elective right total hip arthroplasty. DISCHARGE DIAGNOSES: 1. Status post right total hip arthroplasty. Admitted to the swing bed for continued PT/OT. 2. Black eschar infected and necrotic wound noted to the right lower extremity needing higher level of care with surgical debridement and wound cares. HISTORY OF PRESENT ILLNESS: Mrs. Gato Vela is an 81-year-old female with a medical history significant for hypertension; hyperlipidemia; coronary artery disease; atrial fibrillation, on chronic anticoagulation with Coumadin; dementia, presented to the swing bed after she had surgical intervention with the right total hip arthroplasty. The patient was initially admitted on 09/12/2016, and had complications with right leg extremity black eschar tissue formation with deep wound, possible necrotic wound at this time and she is noted to have abscess draining from the wound margins. She remained hemodynamically stable. She was started on oral antibiotic with doxycycline. She requires more intensive care with surgical debridement, so the patient is being transferred to higher level of care for surgical evaluation and possible debridement and wound cares. She is discharged to [facility] for further evaluation and treatment. PHYSICAL EXAMINATION: Vital Signs: On the day of discharge vitals; temperature of 97.5, pulse of 70, blood pressure of 91/63, saturating at 95%. General Appearance: The patient is well oriented to time, place, and person. Follows commands spontaneously. Cardiovascular System: S1, S2 heard with normal intensity. No gallops. Respiratory System: Clear to auscultation bilaterally. No wheeze. No crepitations. Abdomen: Soft. Bowel sounds positive. Nontender. No rigidity. Extremities: Edema in bilateral lower extremities, but more so on the right side. Black eschar tissue noted on the right side. Abscess draining around the margins of the wound. Necrotic tissue noted in the wound. Poor pulses. Neurology: No gross focal neurological deficit. DISCHARGE MEDICATIONS: Include: 1. Tylenol 1000 mg twice a day. 2. Vitamin C 500 mg daily. 3. Calcium carbonate with vitamin D one tablet daily. 4. Cranberry 1 tablet daily. 5. Vitamin B12, 500 mg at bedtime. 6. Aricept 10 mg at bedtime. 7. Vaginal cream twice a week. 8. Neurontin 300 mg three times a day. 9. Lorazepam 1 mg at bedtime as needed for anxiety. 10.Singulair 10 mg at bedtime. 11.Omeprazole 20 mg daily. 12.Ondansetron 4 mg every 8 hours as needed for nausea. 13.Potassium chloride 10 mg mEq twice a day. 14.Senokot 2 tablets twice a day. 15.Coumadin 4 mg daily. 16.Lipitor 20 mg at bedtime. 17.Bupropion 150 mg daily. 18.Oxycodone 10 mg every 4 hours as needed for pain. CONDITION ON ADMISSION: Stable. CONDITION ON DISCHARGE: Stable. Discharged to [facility] for further surgical intervention. DIET: Cardiac healthy diet. Spent over 35 minutes of time in evaluating and treating this patient and making discharge plans and coordination of cares. [facility] /[id number]
[2016-09-23] MEDS ORDERED: Omeprazole 20 MG Cap.CR PO SCH (06:00)
== END 2016-09-22 12:10 | DRG 560 ==
LOC: DL.MS 15:04 → UNDOADMIN 15:04 → DL.MS 17:34
PROVIDERS: ADMIT Family Medicine; ATTEND Family Medicine
DX: Z47.1 Aftercare following joint replacement surgery (principal); L02.415 Cutaneous abscess of right lower limb; Z96.641 Presence of right artificial hip joint; I48.2 Chronic atrial fibrillation; I25.10 Atherosclerotic heart disease of native coronary artery without angina pectoris; I11.0 Hypertensive heart disease with heart failure; I50.9 Heart failure, unspecified; E78.00 Pure hypercholesterolemia, unspecified; K21.9 Gastro-esophageal reflux disease without esophagitis; F32.9 Major depressive disorder, single episode, unspecified; F41.9 Anxiety disorder, unspecified; Z95.0 Presence of cardiac pacemaker; N32.81 Overactive bladder; R32 Unspecified urinary incontinence; M19.90 Unspecified osteoarthritis, unspecified site; M85.80 Other specified disorders of bone density and structure, unspecified site; M79.7 Fibromyalgia; E66.9 Obesity, unspecified; Z68.30 Body mass index [BMI] 30.0-30.9, adult; D64.9 Anemia, unspecified; E53.8 Deficiency of other specified B group vitamins; Z96.653 Presence of artificial knee joint, bilateral; Z79.01 Long term (current) use of anticoagulants; Z79.899 Other long term (current) drug therapy; Z88.1 Allergy status to other antibiotic agents; Z88.6 Allergy status to analgesic agent; Z88.8 Allergy status to other drugs, medicaments and biological substances; G62.9 Polyneuropathy, unspecified; Z66 Do not resuscitate; F03.90 Unspecified dementia, unspecified severity, without behavioral disturbance, psychotic disturbance, mood disturbance, and anxiety; E78.5 Hyperlipidemia, unspecified
CPT/HCPCS: 36415; 81001; 85610; 87070; 87205; 97110-GO; 97110-GP; 97116-GP; 97140-GO; 97161-GP; 97165-GO; 97530-GO; 97535-GO; A9270-GY; J1650

== ENCOUNTER 2016-09-29 07:38 | Inpatient (IN) | payer MEDICARE, OTHER ==
--- NOTE | 2016-09-29 15:38 | PCM.HP ---
H&P History of Present Illness - General Date of Service: 09/29/16 Source of Information: Patient, Old Records - History of Present Illness Initial Comments - Free Text/Narative: The patient is an 81-year-old lady who has history of atrial fibrillation on chronic anticoagulation and history of a difficult to heal right lower extremity wound. The patient underwent surgery on the right hip on September 09 and did well from that point, but developed a right fatima blister which turned into a large area of wound with black eschar. on 09/26 at [facility] underwent R. LE I&D by Plastic surgery wound vac was applied transfered to swing bed for wound care, pt/ot - Related Data Allergies/Adverse Reactions: Allergies Allergy/AdvReac Type Severity Reaction Status Date / Time amoxicillin [Amoxicillin] Allergy Intermediate Nausea and Verified 09/12/16 10: 34 Vomiting codeine Allergy Intermediate Nausea and Verified 09/12/16 10:34 Vomiting propoxyphene Allergy Intermediate Nausea and Verified 09/12/16 10:34 Vomiting nitrofurantoin Allergy Nausea and Verified 09/12/16 10:34 Vomiting tramadol Allergy Nausea and Verified 09/12/16 10:34 Vomiting Home Medications: Home Meds Donepezil [Aricept] 10 mg PO BEDTIME 04/16/13 [History] Gabapentin [Neurontin] 300 mg PO TID 04/16/13 [History] Montelukast [Singulair] 10 mg PO BEDTIME 04/16/13 [History] Omeprazole 20 mg PO DAILY 04/16/13 [History] Potassium Chloride [Klor-Con 10] 10 meq PO BID 04/16/13 [History] Warfarin [Coumadin] 4 mg PO DAILY 04/16/13 [History] atorvaSTATin [Lipitor] 20 mg PO BEDTIME 04/16/13 [History] buPROPion [buPROPion XL] 150 mg PO DAILY 04/16/13 [History] Acetaminophen [Tylenol Extra Strength] 1,000 mg PO BID 09/12/16 [History] Ascorbate Calcium [Vitamin C] 500 mg PO DAILY 09/12/16 [History] Calcium Carbonate/Vitamin D3 [Calcium 600 + Vit D 200] 1 tab PO DAILY 09/12/16 [ History] Cranberry Con&Fr/B.Coag/C/Calc [Cranberry-Probiotic] 1 tab PO DAILY 09/12/16 [ History] Cyanocobalamin (Vitamin B-12) [Vitamin B-12] 500 mg PO BEDTIME 09/12/16 [History ] Estrogens, Conjugated [Premarin Vaginal Crm] 1 cap VAG .TWICE A WEEK 09/12/16 [ History] L.acidoph,Paracasei, B.lactis [Probiotic] 1 each PO BID 09/12/16 [History] LORazepam [Ativan] 1 mg PO BEDTIME PRN 09/12/16 [History] Ondansetron HCl [Zofran] 4 mg PO Q8HR PRN 09/12/16 [History] Sennosides/Docusate Sodium [Senna-Docusate Sodium Tablet] 2 tab PO BID 09/12/16 [History] oxyCODONE 10 mg PO Q4H PRN 09/12/16 [History] Past Medical History HEENT History: Reports: Cataract, Other (See Below) Other HEENT History: Sees well with her glasses Cardiovascular History: Reports: Afib, CAD, Heart Failure, High Cholesterol, Pacemaker Gastrointestinal History: Reports: GERD Genitourinary History: Reports: Urinary Incontinence, UTI, Recurrent Other Genitourinary History: overactive bladder [employer] History: Reports: Other OB/BYN History: ovarian cyst removal Musculoskeletal History: Reports: Back Pain, Chronic, Fibromyalgia, Osteoarthritis Psychiatric History: Reports: Anxiety, Depression Endocrine/Metabolic History: Reports: Obesity/BMI 30+ Hematologic History: Reports: Anemia, B12 Deficiency - Infectious Disease History Infectious Disease History: Reports: Chicken Pox, Measles, Mumps - Past Surgical History HEENT Surgical History: Reports: Cataract Surgery Cardiovascular Surgical History: Reports: Other (See Below) Other Cardiovascular Surgeries/Procedures: Pacemaker insertion 2010 GI Surgical History: Reports: Appendectomy Female Surgical History: Reports: Hysterectomy, Other (See Below) Other Female Surgeries/Procedures: ovarian cyst Endocrine Surgical History: Reports: None Musculoskeletal Surgical History: Reports: Hip Replacement, Knee Replacement Social & Family History - Family History Family Medical History: Noncontributory - Tobacco Use Smoking Status *Q: Never Smoker Second Hand Smoke Exposure: No - Caffeine Use Caffeine Use: Reports: Coffee - Recreational Drug Use Recreational Drug Use: No H&P Review of Systems - Review of Systems: Review Of Systems: See Below General: Denies: Fever Pulmonary: Denies: Shortness of Breath Gastrointestinal: Denies: Abdominal Pain Skin: Reports: Other (right leg edema) Neurological: Reports: Difficulty Walking. Denies: Confusion, Numbness Exam - Exam Exam: See Below - Vital Signs Vital Signs: Last Vital Signs Temp 36.4 C 09/29/16 14:38 Pulse 70 09/29/16 14:38 Resp 20 09/29/16 14:38 BP 110/60 09/29/16 14:38 Pulse Ox 100 09/29/16 14:38 Weight: 92.17 kg - Exam General: Alert Neck: Supple Lungs: Clear to Auscultation, Normal Respiratory Effort Cardiovascular: Regular Rate, Regular Rhythm Abdomen: Normal Bowel Sounds, Soft Extremities: Edema (2 + right lower extremity, trace left lower extremity) Skin: Warm, Other (wound VAC on right lower extremity) Neurological: Cranial Nerves Intact Neuro Extensive - Mental Status: Alert, Oriented x3, Normal Mood/Affect, Normal Cognition Psychiatric: Alert, Normal Affect, Normal Mood *Q Meaningful Use (ADM) - VTE *Q VTE Criteria *Q: - Stroke *Q Stroke Criteria *Q: - AMI *Q AMI Criteria *Q: - Problem List (1) Leg wound, right SNOMED Code(s): 731209135, 272096322 ICD Code: S81.801A - UNSPECIFIED OPEN WOUND, RIGHT LOWER LEG, INITIAL ENCOUNTER Status: Acute Current Visit: Yes (2) Afib SNOMED Code(s): 51035319 ICD Code: I48.91 - UNSPECIFIED ATRIAL FIBRILLATION Status: Acute Current Visit: Yes (3) Chronic diastolic (congestive) heart failure SNOMED Code(s): 059287814, 886274486 ICD Code: I50.32 - CHRONIC DIASTOLIC (CONGESTIVE) HEART FAILURE Status: Acute Current Visit: Yes Problem List Initiated/Reviewed/Updated: Yes Assessment/Plan Comment:: The patient is an 81-year-old lady who has history of atrial fibrillation on chronic anticoagulation and history of a difficult to heal right lower extremity wound. The patient underwent surgery on the right hip on September 09 and did well from that point, but developed a right fatima blister which turned into a large area of wound with black eschar. ~ 1. right leg ulcer with eschar This is likely due to venous stasis blister and injury. For now, we will continue diuretics for swelling. 09/26 underwent R. LE I&D continue wound care with VAC Pain control with percocet control edema with diuretics 2. Atrial fibrillation. She currently appears to have a regular rate. Anticoagulation for atrial fibrillation and deep venous thrombosis (DVT) prophylaxis will be with full-dose Coumadin. 4. Gastroesophageal reflux disease. Treat with Protonix. 5. Chronic diastolic CHF controlled 6. Will ask PT/OT evaluation and treatment
[2016-09-29] MEDS ORDERED: oxyCODONE 5 MG Tab PO PRN (15:42)
[2016-09-29] MEDS ORDERED: LORazepam 1 MG Tab PO PRN (15:42)
[2016-09-29] MEDS ORDERED: Docusate Sodium 100 MG Cap PO PRN (15:53)
[2016-09-29] MEDS ORDERED: Polyethylene Glycol 3350 Powder 17 GM Packet PO PRN (15:53)
[2016-09-29] MEDS ORDERED: Warfarin 2 MG Tab PO ONE (17:00)
[2016-09-29] MEDS: Potassium Chloride 10 MEQ Tab.ER PO SCH (17:40)
[2016-09-29] MEDS ORDERED: Gabapentin 300 MG Cap PO SCH (21:00)
[2016-09-29] MEDS ORDERED: Gabapentin 100 MG Cap PO SCH (21:00)
[2016-09-29] MEDS: Donepezil 10 MG Tab PO SCH (21:48)
[2016-09-29] MEDS: atorvaSTATin 10 MG Tab PO SCH (21:48)
[2016-09-29] MEDS: Montelukast 10 MG Tab PO SCH (21:48)
[2016-09-29] MEDS: Gabapentin 300 MG Cap PO SCH (21:48)
[2016-09-29] MEDS: Acetaminophen 500 MG Tab PO SCH (21:49)
[2016-09-29] MEDS: oxyCODONE 5 MG Tab PO PRN (21:51)
[2016-09-29] MEDS: Cyanocobalamin (Vitamin B12) 100 MCG Tab PO SCH (22:01)
[2016-09-29] MEDS: Docusate Sodium 100 MG Cap PO PRN (23:37)
[2016-09-29] MEDS: LORazepam 0.5 MG Tab PO PRN (23:37)
[2016-09-29] MEDS: Zolpidem 5 MG Tab PO PRN (23:37)
[2016-09-30] MEDS: Acetaminophen 500 MG Tab PO SCH ×2 (08:57→20:59)
[2016-09-30] MEDS: buPROPion 150 MG Tab.ER PO SCH (08:59)
[2016-09-30] MEDS: Furosemide 20 MG Tab PO SCH (08:59)
[2016-09-30] MEDS: Calcium Carbonate/Vitamin D3 1250 MG-200 Unit Tab PO SCH (08:59)
[2016-09-30] MEDS: Gabapentin 300 MG Cap PO SCH ×3 (08:59→20:59)
[2016-09-30] MEDS: Omeprazole 20 MG Cap.CR PO SCH (08:59)
[2016-09-30] MEDS: Potassium Chloride 10 MEQ Tab.ER PO SCH ×2 (08:59→18:06)
[2016-09-30] MEDS: oxyCODONE 5 MG Tab PO PRN ×4 (09:00→23:34)
[2016-09-30] MEDS: Ondansetron 4 MG Tab.DIS PO PRN (10:12)
[2016-09-30] MEDS ORDERED: Warfarin 5 MG Tab PO ONE ×2 (13:22→14:00)
[2016-09-30] MEDS: atorvaSTATin 10 MG Tab PO SCH (20:59)
[2016-09-30] MEDS: Donepezil 10 MG Tab PO SCH (20:59)
[2016-09-30] MEDS: Montelukast 10 MG Tab PO SCH (20:59)
[2016-09-30] MEDS: Cyanocobalamin (Vitamin B12) 100 MCG Tab PO SCH (21:02)
[2016-09-30] MEDS: LORazepam 0.5 MG Tab PO PRN (23:36)
[2016-10-01] MEDS: Ondansetron 4 MG Tab.DIS PO PRN ×2 (00:42→08:50)
[2016-10-01] MEDS: Zolpidem 5 MG Tab PO PRN ×2 (02:01→23:55)
[2016-10-01] MEDS: Omeprazole 20 MG Cap.CR PO SCH (06:02)
[2016-10-01] MEDS: oxyCODONE 5 MG Tab PO PRN ×3 (08:38→20:42)
[2016-10-01] MEDS: Potassium Chloride 10 MEQ Tab.ER PO SCH ×2 (08:38→17:43)
[2016-10-01] MEDS: Calcium Carbonate/Vitamin D3 1250 MG-200 Unit Tab PO SCH (08:38)
[2016-10-01] MEDS: Furosemide 20 MG Tab PO SCH (08:39)
[2016-10-01] MEDS: Gabapentin 300 MG Cap PO SCH ×3 (08:39→20:45)
[2016-10-01] MEDS: buPROPion 150 MG Tab.ER PO SCH (08:40)
[2016-10-01] MEDS: Acetaminophen 500 MG Tab PO SCH ×2 (08:40→20:46)
[2016-10-01] MEDS: Docusate Sodium 100 MG Cap PO PRN ×2 (12:31→22:37)
[2016-10-01] MEDS ORDERED: Warfarin 5 MG Tab PO ONE (14:00)
[2016-10-01] MEDS: Montelukast 10 MG Tab PO SCH (20:45)
[2016-10-01] MEDS: Donepezil 10 MG Tab PO SCH (20:45)
[2016-10-01] MEDS: atorvaSTATin 10 MG Tab PO SCH (20:45)
[2016-10-01] MEDS: Cyanocobalamin (Vitamin B12) 100 MCG Tab PO SCH (20:47)
[2016-10-01] MEDS: CRANBERRY PO SCH (20:48)
[2016-10-01] MEDS: PROBIOTIC PO SCH ×2 (20:48→20:49)
[2016-10-01] MEDS: LORazepam 0.5 MG Tab PO PRN (22:38)
[2016-10-02] MEDS: PROBIOTIC PO SCH ×4 (06:33→21:15)
[2016-10-02] MEDS: Omeprazole 20 MG Cap.CR PO SCH (06:35)
[2016-10-02] MEDS: oxyCODONE 5 MG Tab PO PRN ×4 (06:35→19:59)
[2016-10-02] MEDS: Potassium Chloride 10 MEQ Tab.ER PO SCH ×2 (07:28→17:19)
[2016-10-02] MEDS: Docusate Sodium 100 MG Cap PO PRN ×2 (07:29→22:54)
[2016-10-02] MEDS: Calcium Carbonate/Vitamin D3 1250 MG-200 Unit Tab PO SCH (09:11)
[2016-10-02] MEDS: Gabapentin 300 MG Cap PO SCH ×3 (09:11→20:29)
[2016-10-02] MEDS: buPROPion 150 MG Tab.ER PO SCH (09:11)
[2016-10-02] MEDS: Acetaminophen 500 MG Tab PO SCH ×2 (09:12→20:27)
[2016-10-02] MEDS: Furosemide 20 MG Tab PO SCH (09:12)
[2016-10-02] MEDS: Ondansetron 4 MG Tab.DIS PO PRN (12:53)
[2016-10-02] MEDS ORDERED: Warfarin 5 MG Tab PO ONE (14:00)
[2016-10-02] MEDS ORDERED: oxyCODONE 5 MG Tab PO ONE (20:03)
[2016-10-02] MEDS: Donepezil 10 MG Tab PO SCH (20:29)
[2016-10-02] MEDS: atorvaSTATin 10 MG Tab PO SCH (20:29)
[2016-10-02] MEDS: Montelukast 10 MG Tab PO SCH (20:29)
[2016-10-02] MEDS: Cyanocobalamin (Vitamin B12) 100 MCG Tab PO SCH (20:30)
[2016-10-02] MEDS: CRANBERRY PO SCH (20:31)
[2016-10-02] MEDS: Zolpidem 5 MG Tab PO PRN (22:54)
[2016-10-02] MEDS: LORazepam 0.5 MG Tab PO PRN (22:55)
[2016-10-03] MEDS: oxyCODONE 5 MG Tab PO PRN ×5 (01:48→23:24)
[2016-10-03] MEDS: Omeprazole 20 MG Cap.CR PO SCH (06:24)
[2016-10-03] MEDS: Furosemide 20 MG Tab PO SCH (08:22)
[2016-10-03] MEDS: Potassium Chloride 10 MEQ Tab.ER PO SCH ×2 (08:22→17:23)
[2016-10-03] MEDS: buPROPion 150 MG Tab.ER PO SCH (08:22)
[2016-10-03] MEDS: Calcium Carbonate/Vitamin D3 1250 MG-200 Unit Tab PO SCH (08:22)
[2016-10-03] MEDS: Gabapentin 300 MG Cap PO SCH ×3 (08:22→23:21)
[2016-10-03] MEDS: Acetaminophen 500 MG Tab PO SCH ×2 (08:22→23:26)
[2016-10-03] MEDS: PROBIOTIC PO SCH ×2 (08:24→23:28)
[2016-10-03] MEDS: Docusate Sodium 100 MG Cap PO PRN ×2 (08:31→23:22)
[2016-10-03] MEDS: Ondansetron 4 MG Tab.DIS PO PRN (13:52)
[2016-10-03] MEDS ORDERED: Warfarin 2 MG Tab PO ONE (14:00)
[2016-10-03] MEDS: Zolpidem 5 MG Tab PO PRN (23:20)
[2016-10-03] MEDS: Cyanocobalamin (Vitamin B12) 100 MCG Tab PO SCH (23:21)
[2016-10-03] MEDS: atorvaSTATin 10 MG Tab PO SCH (23:21)
[2016-10-03] MEDS: Montelukast 10 MG Tab PO SCH (23:22)
[2016-10-03] MEDS: Donepezil 10 MG Tab PO SCH (23:23)
[2016-10-03] MEDS: LORazepam 0.5 MG Tab PO PRN (23:24)
[2016-10-03] MEDS: CRANBERRY PO SCH (23:29)
[2016-10-04 06:59] LABS: CHLORIDE,CL 103 mmol/L (101-111); SODIUM,NA 140 mmol/L (135-145)
[2016-10-04] MEDS: Omeprazole 20 MG Cap.CR PO SCH (06:59)
[2016-10-04] MEDS: oxyCODONE 5 MG Tab PO PRN ×3 (07:00→20:27)
[2016-10-04] MEDS: Acetaminophen 500 MG Tab PO SCH ×2 (09:49→20:26)
[2016-10-04] MEDS: buPROPion 150 MG Tab.ER PO SCH (09:49)
[2016-10-04] MEDS: Calcium Carbonate/Vitamin D3 1250 MG-200 Unit Tab PO SCH (09:49)
[2016-10-04] MEDS: Gabapentin 300 MG Cap PO SCH ×3 (09:50→20:24)
[2016-10-04] MEDS: Potassium Chloride 10 MEQ Tab.ER PO SCH ×2 (09:50→17:40)
[2016-10-04] MEDS: Furosemide 20 MG Tab PO SCH (09:50)
[2016-10-04] MEDS: Ondansetron 4 MG Tab.DIS PO PRN (11:03)
--- NOTE | 2016-10-04 12:07 | PCM.PN ---
- General Info Date of Service: 10/04/16 Subjective Update: admitted with right lower extremity wound for further wound care with wound VAC. Feeling anxious, depressed. [place] urinary burning yesterday Functional Status: Reports: pain controlled - Review of Systems General: Denies: Fever Pulmonary: Denies: shortness of breath Cardiovascular: Denies: Chest Pain Gastrointestinal: Denies: Abdominal pain - Patient Data Vitals - most recent: Last Vital Signs Temp 37.1 C 10/04/16 07:00 Pulse 70 10/04/16 07:00 Resp 20 10/04/16 07:00 BP 116/53 L 10/04/16 07:00 Pulse Ox 98 10/04/16 07:00 Weight - most recent: 92.17 kg Lab Results last 24 hrs: Laboratory Results - last 24 hr 10/03/16 10/04/16 10/04/16 Range/Units 13:40 06:15 06:15 WBC 5.4 (5.0-10.0) 10^3/uL RBC 2.78 L (4.2-5.4) 10^6/uL Hgb 8.4 L (12.0-16.0) g/dL Hct 27.0 L (37.0-47.0) % MCV 97.1 (80-100) fL MCH 30.2 (27.0-34.0) pg MCHC 31.1 L (33.0-35.0) g/dL Plt Count 361 (150-450) 10^3/uL Neut % (Auto) 43.2 (42.2-75.2) % Lymph % (Auto) 34.7 (20.5-50.1) % [place] % (Auto) 14.1 H (2-8) % Eos % (Auto) 7.1 H (1.0-3.0) % Baso % (Auto) 0.9 (0.0-1.0) % PT 23.0 H (9.0-12.0) SEC INR 2.3 H (0.9-1.2) Sodium (135-145) mmol/L Potassium (3.6-5.0) mmol/L Chloride (101-111) mmol/L Carbon Dioxide (21.0-31.0) mmol/L Anion Gap BUN (7-18) mg/dL Creatinine (0.6-1.3) mg/dL Est Cr Clr Drug Dosing mL/min Estimated GFR (MDRD) Glucose (74-105) mg/dL Calcium (8.4-10.2) mg/dl Urine Color Yellow (YELLOW) Urine Appearance Clear (CLEAR) Urine pH 5.0 (5.0-9.0) Ur Specific [place] <= 1.005 (1.005-1.030) Urine Protein Negative (NEGATIVE) Urine Glucose (UA) Negative (NEGATIVE) Urine Ketones Negative (NEGATIVE) Urine Occult Blood Negative (NEGATIVE) Urine Nitrite Negative (NEGATIVE) Urine Bilirubin Negative (NEGATIVE) Urine Urobilinogen 0.2 (0.2-1.0) mg/dL Ur Leukocyte Esterase Trace H (NEGATIVE) Urine RBC 0-5 /HPF Urine WBC 0-5 (0-5/HPF) /HPF Ur Epithelial Cells Many H /HPF Urine Bacteria Few (0-FEW/HPF) /HPF Urine Mucus Few H /LPF Urine Other 10/04/17 Range/Units 06:15 WBC (5.0-10.0) 10^3/uL RBC (4.2-5.4) 10^6/uL Hgb (12.0-16.0) g/dL Hct (37.0-47.0) % MCV (80-100) fL MCH (27.0-34.0) pg MCHC (33.0-35.0) g/dL Plt Count (150-450) 10^3/uL Neut % (Auto) (42.2-75.2) % Lymph % (Auto) (20.5-50.1) % [place] % (Auto) (2-8) % Eos % (Auto) (1.0-3.0) % Baso % (Auto) (0.0-1.0) % PT (9.0-12.0) SEC INR (0.9-1.2) Sodium 140 (135-145) mmol/L Potassium 3.7 (3.6-5.0) mmol/L Chloride 103 (101-111) mmol/L Carbon Dioxide 30.0 (21.0-31.0) mmol/L Anion Gap 10.7 BUN 11 (7-18) mg/dL Creatinine 0.8 (0.6-1.3) mg/dL Est Cr Clr Drug Dosing 48.43 mL/min Estimated GFR (MDRD) > 60 Glucose 106 H (74-105) mg/dL Calcium 8.6 (8.4-10.2) mg/dl Urine Color (YELLOW) Urine Appearance (CLEAR) Urine pH (5.0-9.0) Ur Specific [place] (1.005-1.030) Urine Protein (NEGATIVE) Urine Glucose (UA) (NEGATIVE) Urine Ketones (NEGATIVE) Urine Occult Blood (NEGATIVE) Urine Nitrite (NEGATIVE) Urine Bilirubin (NEGATIVE) Urine Urobilinogen (0.2-1.0) mg/dL Ur Leukocyte Esterase (NEGATIVE) Urine RBC /HPF Urine WBC (0-5/HPF) /HPF Ur Epithelial Cells /HPF Urine Bacteria (0-FEW/HPF) /HPF Urine Mucus /LPF Urine Other Med Orders - Current: Current Medications Acetaminophen (Tylenol Extra Strength) 1,000 mg PO BID [facility] Last Admin: 10/04/16 09:49 Dose: 1,000 mg Atorvastatin Calcium (Lipitor) 20 mg PO BEDTIME [facility] Last Admin: 10/03/16 23:21 Dose: 20 mg Bupropion HCl (Wellbutrin Xl) 150 mg PO DAILY [facility] Last Admin: 10/04/16 09:49 Dose: 150 mg Calcium Carbonate (Calcium Carbonate/Vitamin D 1250 Mg-200 Unit) 1 tab PO DAILY [facility] Last Admin: 10/04/16 09:49 Dose: 1 tab Cyanocobalamin (Vitamin B12) 500 mcg PO BEDTIME [facility] Last Admin: 10/03/16 23:21 Dose: 500 mcg Docusate Sodium (Colace) 200 mg PO BID PRN PRN Reason: Constipation Last Admin: 10/03/16 23:22 Dose: 100 mg Donepezil HCl (Aricept) 10 mg PO BEDTIME [facility] Last Admin: 10/03/16 23:23 Dose: 10 mg Furosemide (Lasix) 20 mg PO DAILY [facility] Last Admin: 10/04/16 09:50 Dose: 20 mg Gabapentin (Neurontin) 300 mg PO TID [facility] Last Admin: 10/04/16 09:50 Dose: 300 mg Montelukast Sodium (Singulair) 10 mg PO BEDTIME [facility] Last Admin: 10/03/16 23:22 Dose: 10 mg Patients Own Med [ (Probiotic]) 1 each PO BID [facility] Last Admin: 10/03/16 23:28 Dose: 1 each Patients Own Med[ (Cranberry] Tabs) 1 tab PO BEDTIME [facility] Last Admin: 10/03/16 23:29 Dose: 1 tab Omeprazole (Omeprazole) 20 mg PO ACBRK [facility] Last Admin: 10/04/16 06:59 Dose: 20 mg Ondansetron HCl (Zofran Odt) 4 mg PO Q6H PRN PRN Reason: nausea, able to take PO Last Admin: 10/04/16 11:03 Dose: 4 mg Oxycodone HCl (Oxycodone) 5 mg PO Q4H PRN PRN Reason: Pain Last Admin: 10/04/16 07:00 Dose: 5 mg Phenyleph/Shark Oil/Min Oil/Petrol (Preparation H Oint) 0 gm RECTAL BID PRN PRN Reason: rectal dyscomfort Polyethylene Glycol (Miralax) 17 gm PO DAILY PRN PRN Reason: Constipation Potassium Chloride (Klor-Con 10) 10 meq PO BIDMEALS [facility] Last Admin: 10/04/16 09:50 Dose: 10 meq Warfarin Sodium (Pharmacy To Dose - Warfarin) 1 dose .XX ASDIRECTED [facility] Warfarin Sodium (Coumadin) 5 mg PO ONETIME ONE Stop: 10/04/16 14:01 Zolpidem Tartrate (Ambien) 5 mg PO BEDTIME PRN PRN Reason: Sleep Last Admin: 10/03/16 23:20 Dose: 5 mg Discontinued Medications Docusate Sodium (Colace) 100 mg PO BID PRN PRN Reason: Constipation Gabapentin (Neurontin) 100 mg PO TID [facility] Lorazepam (Ativan) 1 mg PO BEDTIME PRN PRN Reason: Anxiety Lorazepam (Ativan) 0.5 mg PO BEDTIME PRN PRN Reason: Anxiety Last Admin: 10/03/16 23:24 Dose: 0.5 mg Oxycodone HCl (Oxycodone) 10 mg PO Q4H PRN PRN Reason: Pain Oxycodone HCl (Oxycodone) 5 mg PO ONETIME ONE Stop: 10/02/16 20:04 Last Admin: 10/02/16 20:25 Dose: 5 mg Warfarin Sodium (Coumadin) 4 mg PO ONETIME ONE Stop: 09/29/16 17:01 Last Admin: 09/29/16 20:04 Dose: Not Given Warfarin Sodium (Coumadin) 5 mg PO ONETIME ONE Stop: 09/30/16 14:01 Last Admin: 09/30/16 13:57 Dose: 5 mg Warfarin Sodium (Coumadin) 5 mg PO ONETIME ONE Stop: 10/01/16 14:01 Last Admin: 10/01/16 14:59 Dose: 5 mg Warfarin Sodium (Coumadin) 5 mg PO ONETIME ONE Stop: 10/02/16 14:01 Last Admin: 10/02/16 14:02 Dose: 5 mg Warfarin Sodium (Coumadin) 4 mg PO ONETIME ONE Stop: 10/03/16 14:01 Last Admin: 10/03/16 13:32 Dose: 4 mg - Exam General: alert, oriented Neck: supple Lungs: Clear to auscultation, Normal respiratory effort Abdomen: bowel sounds present, soft, no tenderness, no distension Extremities: edema (bilateral trace), other (wound VAC on the right side) - Problem List & Annotations (1) Leg wound, right SNOMED Code(s): 854709663, 981420343 Code(s): S81.801A - UNSPECIFIED OPEN WOUND, RIGHT LOWER LEG, INITIAL ENCOUNTER Status: Acute Current Visit: Yes (2) Afib SNOMED Code(s): 14621673 Code(s): I48.91 - UNSPECIFIED ATRIAL FIBRILLATION Status: Acute Current Visit: Yes (3) Chronic diastolic (congestive) heart failure SNOMED Code(s): 678954320, 279282132 Code(s): I50.32 - CHRONIC DIASTOLIC (CONGESTIVE) HEART FAILURE Status: Acute Current Visit: Yes - Problem List Review Problem List Initiated/Reviewed/Updated: Yes - My Orders Last 24 Hours: My Active Orders 10/04/16 12:03 LORazepam [Ativan] 0.5 mg PO Q6H PRN 10/04/16 14:00 Warfarin [Coumadin] 5 mg PO ONETIME ONE 10/05/16 05:11 INR,PT,PROTHROMBIN TIME [COAG] AM 10/06/16 05:11 INR,PT,PROTHROMBIN TIME [COAG] AM 10/07/16 05:11 INR,PT,PROTHROMBIN TIME [COAG] AM - Plan Plan:: The patient is an 81-year-old lady who has history of atrial fibrillation on chronic anticoagulation and history of a difficult to heal right lower extremity wound. The patient underwent surgery on the right hip on September 09 and did well from that point, but developed a right fatima blister which turned into a large area of wound with black eschar. 1. right leg ulcer with eschar This is likely due to venous stasis blister and injury. For now, we will continue diuretics for swelling. 09/26 underwent R. LE I&D continue wound care with VAC plan to return to plastic surgery for skin graft Pain control with percocet control edema with diuretics 2. Atrial fibrillation. She currently appears to have a regular rate. Anticoagulation for atrial fibrillation and deep venous thrombosis (DVT) prophylaxis will be with full-dose Coumadin. 4. Gastroesophageal reflux disease. Treat with Protonix. 5. Chronic diastolic CHF controlled 6. anxiety Increase Ativan p.r.n. 7. urinary burning UA did not appear to have urinary tract infection We'll monitor 8. Will ask PT/OT evaluation and treatment
[2016-10-04] MEDS: PROBIOTIC PO SCH ×2 (12:54→20:24)
[2016-10-04] MEDS ORDERED: Warfarin 5 MG Tab PO ONE (14:00)
[2016-10-04] MEDS: Cyanocobalamin (Vitamin B12) 100 MCG Tab PO SCH (20:23)
[2016-10-04] MEDS: CRANBERRY PO SCH (20:24)
[2016-10-04] MEDS: Montelukast 10 MG Tab PO SCH (20:25)
[2016-10-04] MEDS: Donepezil 10 MG Tab PO SCH (20:25)
[2016-10-04] MEDS: atorvaSTATin 10 MG Tab PO SCH (20:25)
[2016-10-04] MEDS: Docusate Sodium 100 MG Cap PO PRN (20:25)
[2016-10-04] MEDS: Zolpidem 5 MG Tab PO PRN (22:20)
[2016-10-04] MEDS: LORazepam 0.5 MG Tab PO PRN (23:34)
[2016-10-05] MEDS: oxyCODONE 5 MG Tab PO PRN ×5 (01:09→22:35)
[2016-10-05] MEDS: Omeprazole 20 MG Cap.CR PO SCH (06:10)
[2016-10-05] MEDS: Potassium Chloride 10 MEQ Tab.ER PO SCH ×2 (07:38→17:44)
[2016-10-05] MEDS: LORazepam 0.5 MG Tab PO PRN (07:38)
[2016-10-05] MEDS: Ondansetron 4 MG Tab.DIS PO PRN (07:45)
[2016-10-05] MEDS: Gabapentin 300 MG Cap PO SCH ×3 (10:21→20:25)
[2016-10-05] MEDS: Calcium Carbonate/Vitamin D3 1250 MG-200 Unit Tab PO SCH (10:22)
[2016-10-05] MEDS: buPROPion 150 MG Tab.ER PO SCH (10:22)
[2016-10-05] MEDS: Acetaminophen 500 MG Tab PO SCH ×2 (10:22→20:23)
[2016-10-05] MEDS: Furosemide 20 MG Tab PO SCH (10:22)
[2016-10-05] MEDS: PROBIOTIC PO SCH ×2 (10:25→20:26)
[2016-10-05] MEDS ORDERED: Warfarin 5 MG Tab PO ONE (14:00)
[2016-10-05] MEDS: Docusate Sodium 100 MG Cap PO PRN (20:23)
[2016-10-05] MEDS: Cyanocobalamin (Vitamin B12) 100 MCG Tab PO SCH (20:23)
[2016-10-05] MEDS: Montelukast 10 MG Tab PO SCH (20:25)
[2016-10-05] MEDS: atorvaSTATin 10 MG Tab PO SCH (20:25)
[2016-10-05] MEDS: CRANBERRY PO SCH (20:26)
[2016-10-05] MEDS: Donepezil 10 MG Tab PO SCH (20:26)
[2016-10-05] MEDS: LORazepam 1 MG Tab PO PRN (22:34)
[2016-10-06] MEDS: oxyCODONE 5 MG Tab PO PRN ×3 (04:27→18:10)
[2016-10-06] MEDS: Omeprazole 20 MG Cap.CR PO SCH (06:40)
[2016-10-06] MEDS: Potassium Chloride 10 MEQ Tab.ER PO SCH ×2 (08:23→18:09)
[2016-10-06] MEDS: Calcium Carbonate/Vitamin D3 1250 MG-200 Unit Tab PO SCH (09:04)
[2016-10-06] MEDS: Gabapentin 300 MG Cap PO SCH ×3 (09:04→21:14)
[2016-10-06] MEDS: Furosemide 20 MG Tab PO SCH (09:04)
[2016-10-06] MEDS: Acetaminophen 500 MG Tab PO SCH ×2 (09:05→21:14)
[2016-10-06] MEDS: buPROPion 150 MG Tab.ER PO SCH (09:05)
[2016-10-06] MEDS: PROBIOTIC PO SCH ×2 (09:07→21:16)
[2016-10-06] MEDS: Docusate Sodium 100 MG Cap PO PRN ×2 (12:06→23:11)
[2016-10-06] MEDS ORDERED: Warfarin 2 MG Tab PO ONE (14:00)
[2016-10-06] MEDS: Cyanocobalamin (Vitamin B12) 100 MCG Tab PO SCH (21:14)
[2016-10-06] MEDS: Montelukast 10 MG Tab PO SCH (21:14)
[2016-10-06] MEDS: atorvaSTATin 10 MG Tab PO SCH (21:14)
[2016-10-06] MEDS: Donepezil 10 MG Tab PO SCH (21:14)
[2016-10-06] MEDS: CRANBERRY PO SCH (21:17)
[2016-10-06] MEDS: Zolpidem 5 MG Tab PO PRN ×2 (23:10)
[2016-10-06] MEDS: LORazepam 1 MG Tab PO PRN (23:11)
[2016-10-07] MEDS: Omeprazole 20 MG Cap.CR PO SCH (05:21)
[2016-10-07] MEDS: oxyCODONE 5 MG Tab PO PRN ×4 (05:22→22:20)
[2016-10-07] MEDS: Ondansetron 4 MG Tab.DIS PO PRN ×2 (05:31→23:51)
[2016-10-07] MEDS: PROBIOTIC PO SCH ×2 (08:53→20:50)
[2016-10-07] MEDS: Gabapentin 300 MG Cap PO SCH ×3 (08:55→20:53)
[2016-10-07] MEDS: Potassium Chloride 10 MEQ Tab.ER PO SCH ×2 (08:55→17:33)
[2016-10-07] MEDS: Furosemide 20 MG Tab PO SCH (08:55)
[2016-10-07] MEDS: buPROPion 150 MG Tab.ER PO SCH (08:56)
[2016-10-07] MEDS: Acetaminophen 500 MG Tab PO SCH ×2 (08:56→20:51)
[2016-10-07] MEDS: Calcium Carbonate/Vitamin D3 1250 MG-200 Unit Tab PO SCH (09:02)
[2016-10-07] MEDS: Docusate Sodium 100 MG Cap PO PRN ×2 (09:02→22:20)
[2016-10-07] MEDS: Polyethylene Glycol 3350 Powder 17 GM Packet PO SCH (09:03)
[2016-10-07] MEDS: LORazepam 0.5 MG Tab PO PRN (09:36)
[2016-10-07] MEDS: Donepezil 10 MG Tab PO SCH (20:47)
[2016-10-07] MEDS: CRANBERRY PO SCH (20:49)
[2016-10-07] MEDS: Montelukast 10 MG Tab PO SCH (20:50)
[2016-10-07] MEDS: atorvaSTATin 10 MG Tab PO SCH (20:51)
[2016-10-07] MEDS: Cyanocobalamin (Vitamin B12) 100 MCG Tab PO SCH (20:53)
[2016-10-07] MEDS: LORazepam 1 MG Tab PO PRN (22:21)
[2016-10-07] MEDS: Zolpidem 5 MG Tab PO PRN (23:51)
[2016-10-08] MEDS: Omeprazole 20 MG Cap.CR PO SCH (05:56)
[2016-10-08] MEDS: Ondansetron 4 MG Tab.DIS PO PRN (08:20)
[2016-10-08] MEDS: Calcium Carbonate/Vitamin D3 1250 MG-200 Unit Tab PO SCH (08:45)
[2016-10-08] MEDS: buPROPion 150 MG Tab.ER PO SCH (08:45)
[2016-10-08] MEDS: Furosemide 20 MG Tab PO SCH (08:45)
[2016-10-08] MEDS: Potassium Chloride 10 MEQ Tab.ER PO SCH ×2 (08:45→17:16)
[2016-10-08] MEDS: Gabapentin 300 MG Cap PO SCH ×3 (08:45→20:52)
[2016-10-08] MEDS: Acetaminophen 500 MG Tab PO SCH ×2 (08:45→20:52)
[2016-10-08] MEDS: Polyethylene Glycol 3350 Powder 17 GM Packet PO SCH (08:46)
[2016-10-08] MEDS: PROBIOTIC PO SCH ×2 (08:47→20:50)
[2016-10-08] MEDS: oxyCODONE 5 MG Tab PO PRN ×2 (08:55→21:57)
[2016-10-08] MEDS ORDERED: Warfarin 2 MG Tab PO SCH (14:00)
[2016-10-08] MEDS: LORazepam 0.5 MG Tab PO PRN (14:24)
[2016-10-08] MEDS: CRANBERRY PO SCH (20:50)
[2016-10-08] MEDS: atorvaSTATin 10 MG Tab PO SCH (20:54)
[2016-10-08] MEDS: Montelukast 10 MG Tab PO SCH (20:55)
[2016-10-08] MEDS: Donepezil 10 MG Tab PO SCH (20:55)
[2016-10-08] MEDS: Cyanocobalamin (Vitamin B12) 100 MCG Tab PO SCH (20:56)
[2016-10-08] MEDS: LORazepam 1 MG Tab PO PRN (21:57)
[2016-10-08] MEDS: Docusate Sodium 100 MG Cap PO PRN (21:59)
[2016-10-09] MEDS: Zolpidem 5 MG Tab PO PRN ×2 (00:09→22:55)
[2016-10-09] MEDS: Omeprazole 20 MG Cap.CR PO SCH (05:33)
[2016-10-09] MEDS: Polyethylene Glycol 3350 Powder 17 GM Packet PO SCH (09:32)
[2016-10-09] MEDS: buPROPion 150 MG Tab.ER PO SCH (09:33)
[2016-10-09] MEDS: Calcium Carbonate/Vitamin D3 1250 MG-200 Unit Tab PO SCH (09:33)
[2016-10-09] MEDS: Acetaminophen 500 MG Tab PO SCH ×2 (09:33→21:36)
[2016-10-09] MEDS: Potassium Chloride 10 MEQ Tab.ER PO SCH ×2 (09:33→17:20)
[2016-10-09] MEDS: Furosemide 20 MG Tab PO SCH (09:34)
[2016-10-09] MEDS: Gabapentin 300 MG Cap PO SCH ×3 (09:34→21:36)
[2016-10-09] MEDS: PROBIOTIC PO SCH ×2 (09:35→21:38)
[2016-10-09] MEDS: oxyCODONE 5 MG Tab PO PRN ×2 (09:41→22:55)
[2016-10-09] MEDS: LORazepam 0.5 MG Tab PO PRN (11:32)
[2016-10-09] MEDS: Montelukast 10 MG Tab PO SCH (21:34)
[2016-10-09] MEDS: Cyanocobalamin (Vitamin B12) 100 MCG Tab PO SCH (21:34)
[2016-10-09] MEDS: atorvaSTATin 10 MG Tab PO SCH (21:34)
[2016-10-09] MEDS: Donepezil 10 MG Tab PO SCH (21:36)
[2016-10-09] MEDS: CRANBERRY PO SCH (21:38)
[2016-10-09] MEDS: LORazepam 1 MG Tab PO PRN (22:55)
[2016-10-10] MEDS: Omeprazole 20 MG Cap.CR PO SCH (05:13)
[2016-10-10] MEDS: LORazepam 0.5 MG Tab PO PRN (09:27)
[2016-10-10] MEDS: Gabapentin 300 MG Cap PO SCH ×3 (09:29→21:49)
[2016-10-10] MEDS: Potassium Chloride 10 MEQ Tab.ER PO SCH ×2 (09:34→20:11)
[2016-10-10] MEDS: Furosemide 20 MG Tab PO SCH (09:34)
[2016-10-10] MEDS: Calcium Carbonate/Vitamin D3 1250 MG-200 Unit Tab PO SCH (09:34)
[2016-10-10] MEDS: Acetaminophen 500 MG Tab PO SCH ×2 (09:34→21:49)
[2016-10-10] MEDS: PROBIOTIC PO SCH ×2 (09:34→21:56)
[2016-10-10] MEDS: Polyethylene Glycol 3350 Powder 17 GM Packet PO SCH (09:34)
[2016-10-10] MEDS: buPROPion 150 MG Tab.ER PO SCH (09:35)
[2016-10-10] MEDS: Cyanocobalamin (Vitamin B12) 100 MCG Tab PO SCH (21:48)
[2016-10-10] MEDS: atorvaSTATin 10 MG Tab PO SCH (21:49)
[2016-10-10] MEDS: Doxycycline 100 MG Cap PO SCH (21:49)
[2016-10-10] MEDS: Donepezil 10 MG Tab PO SCH (21:49)
[2016-10-10] MEDS: oxyCODONE 5 MG Tab PO PRN (21:53)
[2016-10-10] MEDS: Montelukast 10 MG Tab PO SCH (21:55)
[2016-10-10] MEDS: CRANBERRY PO SCH (21:56)
[2016-10-10] MEDS: LORazepam 1 MG Tab PO PRN (23:56)
[2016-10-10] MEDS: Zolpidem 5 MG Tab PO PRN (23:56)
[2016-10-11] MEDS: Omeprazole 20 MG Cap.CR PO SCH (06:34)
[2016-10-11] MEDS: Polyethylene Glycol 3350 Powder 17 GM Packet PO SCH (08:53)
[2016-10-11] MEDS: Gabapentin 300 MG Cap PO SCH ×3 (08:54→22:38)
[2016-10-11] MEDS: Acetaminophen 500 MG Tab PO SCH ×2 (08:54→22:37)
[2016-10-11] MEDS: buPROPion 150 MG Tab.ER PO SCH (08:55)
[2016-10-11] MEDS: Doxycycline 100 MG Cap PO SCH ×2 (08:55→22:37)
[2016-10-11] MEDS: Potassium Chloride 10 MEQ Tab.ER PO SCH ×2 (08:55→17:58)
[2016-10-11] MEDS: Furosemide 20 MG Tab PO SCH (08:56)
[2016-10-11] MEDS: PROBIOTIC PO SCH ×2 (08:57→22:44)
[2016-10-11] MEDS: oxyCODONE 5 MG Tab PO PRN ×2 (13:58→22:58)
[2016-10-11] MEDS: Calcium Carbonate/Vitamin D3 1250 MG-200 Unit Tab PO SCH (13:58)
[2016-10-11] MEDS ORDERED: Warfarin 5 MG Tab PO ONE (14:15)
[2016-10-11] MEDS: LORazepam 0.5 MG Tab PO PRN (14:30)
[2016-10-11] MEDS: Cyanocobalamin (Vitamin B12) 100 MCG Tab PO SCH (22:36)
[2016-10-11] MEDS: Donepezil 10 MG Tab PO SCH (22:36)
[2016-10-11] MEDS: atorvaSTATin 10 MG Tab PO SCH (22:36)
[2016-10-11] MEDS: Montelukast 10 MG Tab PO SCH (22:37)
[2016-10-11] MEDS: CRANBERRY PO SCH (22:45)
[2016-10-11] MEDS: Zolpidem 5 MG Tab PO PRN (22:59)
[2016-10-11] MEDS: LORazepam 1 MG Tab PO PRN (23:00)
[2016-10-11] MEDS: Docusate Sodium 100 MG Cap PO PRN (23:00)
[2016-10-12] MEDS: Ondansetron 4 MG Tab.DIS PO PRN ×2 (02:34→23:20)
[2016-10-12] MEDS: LORazepam 0.5 MG Tab PO PRN (03:41)
[2016-10-12] MEDS: Omeprazole 20 MG Cap.CR PO SCH (05:49)
[2016-10-12] MEDS: Acetaminophen 500 MG Tab PO SCH ×2 (08:44→21:02)
[2016-10-12] MEDS: Polyethylene Glycol 3350 Powder 17 GM Packet PO SCH (08:44)
[2016-10-12] MEDS: Potassium Chloride 10 MEQ Tab.ER PO SCH ×2 (08:44→18:09)
[2016-10-12] MEDS: Gabapentin 300 MG Cap PO SCH ×3 (08:44→21:05)
[2016-10-12] MEDS: Furosemide 20 MG Tab PO SCH (08:44)
[2016-10-12] MEDS: Doxycycline 100 MG Cap PO SCH ×2 (08:46→21:05)
[2016-10-12] MEDS: buPROPion 150 MG Tab.ER PO SCH (08:47)
[2016-10-12] MEDS: PROBIOTIC PO SCH ×2 (08:47→21:05)
[2016-10-12] MEDS: oxyCODONE 5 MG Tab PO PRN ×2 (09:09→23:21)
[2016-10-12] MEDS: Calcium Carbonate/Vitamin D3 1250 MG-200 Unit Tab PO SCH (12:30)
[2016-10-12] MEDS ORDERED: Warfarin 2.5 MG Tab PO ONE (14:00)
--- NOTE | 2016-10-12 18:00 | PCM.PN ---
- General Info Date of Service: 10/12/16 Subjective Update: patient was admitted because of right lower extremity eschar which has been postoperatively. Last Monday, she underwent graftingto have the wound covered and the donor site was from the right thigh. Post procedure,reports pain is controlled most of the time. She reports that she takes 2 doses of her oxycodone in the morning which for her is too much as when she does things, she dozes off to sleep. She was first to date the oxycodone at night. She denies any constipation or any dizziness. Actually, she reports that she may have taken too much of her laxatives that whenever she goes to the bathroom, she has a bowel movement. - Patient Data Vitals - most recent: Last Vital Signs Temp 37.0 C 10/12/16 15:32 Pulse 96 10/12/16 15:32 Resp 20 10/12/16 15:32 BP 110/48 L 10/12/16 15:32 Pulse Ox 95 10/12/16 07:13 Weight - most recent: 92.624 kg I&O - last 24 hours: Intake & Output 10/12/16 10/12/16 10/12/16 06:59 14:59 22:59 Intake Total 420 880 50 Balance 420 880 50 Lab Results last 24 hrs: Laboratory Results - last 24 hr 10/12/16 Range/Units 06:19 PT 12.1 H (9.0-12.0) SEC INR 1.2 (0.9-1.2) Med Orders - Current: Current Medications Acetaminophen (Tylenol Extra Strength) 1,000 mg PO BID [facility] Last Admin: 10/12/16 08:44 Dose: 1,000 mg Atorvastatin Calcium (Lipitor) 20 mg PO BEDTIME [facility] Last Admin: 10/11/16 22:36 Dose: 20 mg Bupropion HCl (Wellbutrin Xl) 150 mg PO DAILY [facility] Last Admin: 10/12/16 08:47 Dose: 150 mg Calcium Carbonate (Calcium Carbonate/Vitamin D 1250 Mg-200 Unit) 1 tab PO DAILY @1200 [facility] Last Admin: 10/12/16 12:30 Dose: 1 tab Cyanocobalamin (Vitamin B12) 500 mcg PO BEDTIME [facility] Last Admin: 10/11/16 22:36 Dose: 500 mcg Docusate Sodium (Colace) 200 mg PO BID PRN PRN Reason: Constipation Last Admin: 10/11/16 23:00 Dose: 200 mg Donepezil HCl (Aricept) 10 mg PO BEDTIME [facility] Last Admin: 10/11/16 22:36 Dose: 10 mg Doxycycline Hyclate (Vibramycin) 100 mg PO BID [facility] Stop: 10/20/16 09:00 Last Admin: 10/12/16 08:46 Dose: 100 mg Furosemide (Lasix) 20 mg PO DAILY [facility] Last Admin: 10/12/16 08:44 Dose: 20 mg Gabapentin (Neurontin) 300 mg PO TID [facility] Last Admin: 10/12/16 13:51 Dose: 300 mg Lorazepam (Ativan) 0.5 mg PO Q6H PRN PRN Reason: Anxiety Last Admin: 10/12/16 03:41 Dose: 0.5 mg Lorazepam (Ativan) 1 mg PO BEDTIME PRN PRN Reason: insomnia Last Admin: 10/11/16 23:00 Dose: 1 mg Montelukast Sodium (Singulair) 10 mg PO BEDTIME [facility] Last Admin: 10/11/16 22:37 Dose: 10 mg Patients Own Med [ (Probiotic]) 1 each PO BID [facility] Last Admin: 10/12/16 08:47 Dose: 1 each Patients Own Med[ (Cranberry] Tabs) 1 tab PO BEDTIME [facility] Last Admin: 10/11/16 22:45 Dose: 1 tab Omeprazole (Omeprazole) 20 mg PO ACBRK [facility] Last Admin: 10/12/16 05:49 Dose: 20 mg Ondansetron HCl (Zofran Odt) 4 mg PO Q6H PRN PRN Reason: nausea, able to take PO Last Admin: 10/12/16 02:34 Dose: 4 mg Oxycodone HCl (Oxycodone) 10 mg PO Q6H PRN PRN Reason: Pain Last Admin: 10/12/16 09:09 Dose: 10 mg Phenyleph/Shark Oil/Min Oil/Petrol (Preparation H Oint) 0 gm RECTAL BID PRN PRN Reason: rectal dyscomfort Polyethylene Glycol (Miralax) 17 gm PO DAILY [facility] Last Admin: 10/12/16 08:44 Dose: 17 gm Potassium Chloride (Klor-Con 10) 10 meq PO BIDMEALS [facility] Last Admin: 10/12/16 08:44 Dose: 10 meq Warfarin Sodium (Pharmacy To Dose - Warfarin) 1 dose .XX ASDIRECTED [facility] Zolpidem Tartrate (Ambien) 5 mg PO BEDTIME PRN PRN Reason: Sleep Last Admin: 10/11/16 22:59 Dose: 5 mg Discontinued Medications Calcium Carbonate (Calcium Carbonate/Vitamin D 1250 Mg-200 Unit) 1 tab PO DAILY [facility] Last Admin: 10/10/16 09:34 Dose: Not Given Docusate Sodium (Colace) 100 mg PO BID PRN PRN Reason: Constipation Gabapentin (Neurontin) 100 mg PO TID [facility] Lorazepam (Ativan) 1 mg PO BEDTIME PRN PRN Reason: Anxiety Lorazepam (Ativan) 0.5 mg PO BEDTIME PRN PRN Reason: Anxiety Last Admin: 10/03/16 23:24 Dose: 0.5 mg Oxycodone HCl (Oxycodone) 10 mg PO Q4H PRN PRN Reason: Pain Oxycodone HCl (Oxycodone) 5 mg PO Q4H PRN PRN Reason: Pain Last Admin: 10/09/16 22:55 Dose: 5 mg Oxycodone HCl (Oxycodone) 5 mg PO ONETIME ONE Stop: 10/02/16 20:04 Last Admin: 10/02/16 20:25 Dose: 5 mg Polyethylene Glycol (Miralax) 17 gm PO DAILY PRN PRN Reason: Constipation Last Admin: 10/06/16 09:09 Dose: 17 gm Warfarin Sodium (Coumadin) 4 mg PO ONETIME ONE Stop: 09/29/16 17:01 Last Admin: 09/29/16 20:04 Dose: Not Given Warfarin Sodium (Coumadin) 5 mg PO ONETIME ONE Stop: 09/30/16 14:01 Last Admin: 09/30/16 13:57 Dose: 5 mg Warfarin Sodium (Coumadin) 5 mg PO ONETIME ONE Stop: 10/01/16 14:01 Last Admin: 10/01/16 14:59 Dose: 5 mg Warfarin Sodium (Coumadin) 5 mg PO ONETIME ONE Stop: 10/02/16 14:01 Last Admin: 10/02/16 14:02 Dose: 5 mg Warfarin Sodium (Coumadin) 4 mg PO ONETIME ONE Stop: 10/03/16 14:01 Last Admin: 10/03/16 13:32 Dose: 4 mg Warfarin Sodium (Coumadin) 5 mg PO ONETIME ONE Stop: 10/04/16 14:01 Last Admin: 10/04/16 14:51 Dose: 5 mg Warfarin Sodium (Coumadin) 5 mg PO ONETIME ONE Stop: 10/05/16 14:01 Last Admin: 10/05/16 14:27 Dose: 5 mg Warfarin Sodium (Coumadin) 4 mg PO ONETIME ONE Stop: 10/06/16 14:01 Last Admin: 10/06/16 14:39 Dose: 4 mg Warfarin Sodium (Coumadin) 5 mg PO ONETIME ONE Stop: 10/11/16 14:16 Last Admin: 10/11/16 14:30 Dose: 5 mg Warfarin Sodium (Coumadin) 7.5 mg PO ONETIME ONE Stop: 10/12/16 14:01 Last Admin: 10/12/16 13:50 Dose: 7.5 mg - Exam General: alert, oriented Lungs: Normal respiratory effort Extremities: other (extremities wrapped) - Problem List Review Problem List Initiated/Reviewed/Updated: Yes - My Orders Last 24 Hours: My Active Orders 10/13/16 06:00 INR,PT,PROTHROMBIN TIME [COAG] DAILY 10/14/16 06:00 INR,PT,PROTHROMBIN TIME [COAG] DAILY 10/15/16 06:00 INR,PT,PROTHROMBIN TIME [COAG] DAILY 10/16/16 06:00 INR,PT,PROTHROMBIN TIME [COAG] DAILY 10/17/16 06:00 INR,PT,PROTHROMBIN TIME [COAG] DAILY 10/18/16 06:00 INR,PT,PROTHROMBIN TIME [COAG] DAILY - Plan Plan:: status post grafting of the right lower extremity wound/black eschar - wound vac - Pain control: she has oxycodone 10 mg as needed; she verbalizes she will take one dose at a time to avoid daytime drowsiness status post right hip replacement -pain controlled Atrial Fibrillation - warfarin dosed by pharmacy; no signs of bleeding - Monitor CBC periodically Anemia - hemoglobin low but stable - monitor CBC periodically Anxiety: stable
[2016-10-12] MEDS: Cyanocobalamin (Vitamin B12) 100 MCG Tab PO SCH (21:01)
[2016-10-12] MEDS: Donepezil 10 MG Tab PO SCH (21:04)
[2016-10-12] MEDS: Montelukast 10 MG Tab PO SCH (21:04)
[2016-10-12] MEDS: atorvaSTATin 10 MG Tab PO SCH (21:04)
[2016-10-12] MEDS: CRANBERRY PO SCH (21:05)
[2016-10-12] MEDS: Zolpidem 5 MG Tab PO PRN (23:20)
[2016-10-12] MEDS: LORazepam 1 MG Tab PO PRN (23:20)
[2016-10-13] MEDS: LORazepam 0.5 MG Tab PO PRN (02:35)
[2016-10-13] MEDS: Omeprazole 20 MG Cap.CR PO SCH (05:41)
[2016-10-13] MEDS: Potassium Chloride 10 MEQ Tab.ER PO SCH ×2 (08:18→17:24)
[2016-10-13] MEDS: Polyethylene Glycol 3350 Powder 17 GM Packet PO SCH (08:19)
[2016-10-13] MEDS: PROBIOTIC PO SCH ×2 (08:19→21:39)
[2016-10-13] MEDS: Furosemide 20 MG Tab PO SCH (08:19)
[2016-10-13] MEDS: Gabapentin 300 MG Cap PO SCH ×3 (08:20→21:30)
[2016-10-13] MEDS: Acetaminophen 500 MG Tab PO SCH ×2 (08:20→21:28)
[2016-10-13] MEDS: Doxycycline 100 MG Cap PO SCH ×2 (08:23→21:29)
[2016-10-13] MEDS: buPROPion 150 MG Tab.ER PO SCH (08:23)
[2016-10-13] MEDS: oxyCODONE 5 MG Tab PO PRN ×2 (09:56→21:31)
[2016-10-13] MEDS: Calcium Carbonate/Vitamin D3 1250 MG-200 Unit Tab PO SCH (12:26)
[2016-10-13] MEDS: Mineral Oil/Petrolatum/Phenylephrine/Shark Liver Oil Oint 57 GM Tube RECTAL PRN (12:27)
[2016-10-13] MEDS ORDERED: Warfarin 2.5 MG Tab PO ONE (14:00)
[2016-10-13] MEDS: Cyanocobalamin (Vitamin B12) 100 MCG Tab PO SCH (21:28)
[2016-10-13] MEDS: Donepezil 10 MG Tab PO SCH (21:30)
[2016-10-13] MEDS: Montelukast 10 MG Tab PO SCH (21:30)
[2016-10-13] MEDS: atorvaSTATin 10 MG Tab PO SCH (21:30)
[2016-10-13] MEDS: CRANBERRY PO SCH (21:38)
[2016-10-13] MEDS: LORazepam 1 MG Tab PO PRN (22:55)
[2016-10-13] MEDS: Zolpidem 5 MG Tab PO PRN (22:56)
[2016-10-14] MEDS: LORazepam 0.5 MG Tab PO PRN (00:30)
[2016-10-14] MEDS: Mineral Oil/Petrolatum/Phenylephrine/Shark Liver Oil Oint 57 GM Tube RECTAL PRN (01:30)
[2016-10-14] MEDS: Omeprazole 20 MG Cap.CR PO SCH (05:45)
[2016-10-14] MEDS: oxyCODONE 5 MG Tab PO PRN ×2 (08:08→21:46)
[2016-10-14] MEDS: Acetaminophen 500 MG Tab PO SCH ×2 (09:28→21:45)
[2016-10-14] MEDS: Doxycycline 100 MG Cap PO SCH ×2 (09:31→21:43)
[2016-10-14] MEDS: buPROPion 150 MG Tab.ER PO SCH (09:31)
[2016-10-14] MEDS: Furosemide 20 MG Tab PO SCH (09:31)
[2016-10-14] MEDS: Potassium Chloride 10 MEQ Tab.ER PO SCH ×2 (09:31→17:31)
[2016-10-14] MEDS: PROBIOTIC PO SCH ×2 (09:32→21:48)
[2016-10-14] MEDS: Gabapentin 300 MG Cap PO SCH ×3 (09:32→21:43)
[2016-10-14] MEDS: Polyethylene Glycol 3350 Powder 17 GM Packet PO SCH (09:33)
[2016-10-14] MEDS: Nystatin Topical Powder 30 GM Bottle TOP SCH ×2 (11:20→21:52)
[2016-10-14] MEDS: Calcium Carbonate/Vitamin D3 1250 MG-200 Unit Tab PO SCH (11:44)
[2016-10-14] MEDS ORDERED: Warfarin 2.5 MG Tab PO ONE (14:00)
[2016-10-14] MEDS: Donepezil 10 MG Tab PO SCH (21:42)
[2016-10-14] MEDS: Cyanocobalamin (Vitamin B12) 100 MCG Tab PO SCH (21:42)
[2016-10-14] MEDS: LORazepam 1 MG Tab PO PRN ×2 (21:43→21:44)
[2016-10-14] MEDS: Montelukast 10 MG Tab PO SCH (21:43)
[2016-10-14] MEDS: atorvaSTATin 10 MG Tab PO SCH (21:46)
[2016-10-14] MEDS: CRANBERRY PO SCH (21:48)
[2016-10-15] MEDS: Zolpidem 5 MG Tab PO PRN ×2 (00:48→23:30)
[2016-10-15] MEDS: LORazepam 0.5 MG Tab PO PRN ×2 (00:52→21:05)
[2016-10-15] MEDS: Omeprazole 20 MG Cap.CR PO SCH (05:37)
[2016-10-15] MEDS: Acetaminophen 500 MG Tab PO SCH ×2 (09:18→21:00)
[2016-10-15] MEDS: buPROPion 150 MG Tab.ER PO SCH (09:18)
[2016-10-15] MEDS: Furosemide 20 MG Tab PO SCH (09:19)
[2016-10-15] MEDS: oxyCODONE 5 MG Tab PO PRN ×2 (09:19→21:01)
[2016-10-15] MEDS: Potassium Chloride 10 MEQ Tab.ER PO SCH ×2 (09:19→18:05)
[2016-10-15] MEDS: Gabapentin 300 MG Cap PO SCH ×3 (09:19→20:59)
[2016-10-15] MEDS: Ondansetron 4 MG Tab.DIS PO PRN (09:19)
[2016-10-15] MEDS: Doxycycline 100 MG Cap PO SCH ×2 (09:19→20:59)
[2016-10-15] MEDS: PROBIOTIC PO SCH ×2 (09:21→20:58)
[2016-10-15] MEDS: Polyethylene Glycol 3350 Powder 17 GM Packet PO SCH (09:21)
[2016-10-15] MEDS: Nystatin Topical Powder 30 GM Bottle TOP SCH ×2 (09:23→21:07)
[2016-10-15] MEDS: Calcium Carbonate/Vitamin D3 1250 MG-200 Unit Tab PO SCH (13:51)
[2016-10-15] MEDS ORDERED: Warfarin 5 MG Tab PO ONE (14:00)
[2016-10-15] MEDS: CRANBERRY PO SCH (20:57)
[2016-10-15] MEDS: Cyanocobalamin (Vitamin B12) 100 MCG Tab PO SCH (20:58)
[2016-10-15] MEDS: Montelukast 10 MG Tab PO SCH (20:59)
[2016-10-15] MEDS: Donepezil 10 MG Tab PO SCH (20:59)
[2016-10-15] MEDS: atorvaSTATin 10 MG Tab PO SCH (21:00)
[2016-10-15] MEDS: LORazepam 1 MG Tab PO PRN (23:30)
[2016-10-16] MEDS: oxyCODONE 5 MG Tab PO PRN ×2 (02:31→20:45)
[2016-10-16] MEDS: Omeprazole 20 MG Cap.CR PO SCH (05:53)
[2016-10-16] MEDS: Polyethylene Glycol 3350 Powder 17 GM Packet PO SCH (09:42)
[2016-10-16] MEDS: buPROPion 150 MG Tab.ER PO SCH (09:43)
[2016-10-16] MEDS: Doxycycline 100 MG Cap PO SCH ×2 (09:43→20:34)
[2016-10-16] MEDS: Furosemide 20 MG Tab PO SCH (09:43)
[2016-10-16] MEDS: Potassium Chloride 10 MEQ Tab.ER PO SCH ×2 (09:44→17:32)
[2016-10-16] MEDS: Acetaminophen 500 MG Tab PO SCH ×2 (09:44→20:35)
[2016-10-16] MEDS: Gabapentin 300 MG Cap PO SCH ×3 (09:45→20:38)
[2016-10-16] MEDS: PROBIOTIC PO SCH ×2 (09:46→20:33)
[2016-10-16] MEDS: Nystatin Topical Powder 30 GM Bottle TOP SCH ×2 (09:47→21:24)
[2016-10-16] MEDS: Calcium Carbonate/Vitamin D3 1250 MG-200 Unit Tab PO SCH (12:33)
[2016-10-16] MEDS ORDERED: Warfarin 2 MG Tab PO ONE (14:00)
[2016-10-16] MEDS: Ondansetron 4 MG Tab.DIS PO PRN (14:07)
[2016-10-16] MEDS: CRANBERRY PO SCH (20:34)
[2016-10-16] MEDS: atorvaSTATin 10 MG Tab PO SCH (20:35)
[2016-10-16] MEDS: Montelukast 10 MG Tab PO SCH (20:37)
[2016-10-16] MEDS: Donepezil 10 MG Tab PO SCH (20:38)
[2016-10-16] MEDS: LORazepam 0.5 MG Tab PO PRN (20:46)
[2016-10-16] MEDS: Cyanocobalamin (Vitamin B12) 100 MCG Tab PO SCH (21:24)
[2016-10-16] MEDS: LORazepam 1 MG Tab PO PRN (23:58)
[2016-10-16] MEDS: Zolpidem 5 MG Tab PO PRN (23:58)
[2016-10-17] MEDS: oxyCODONE 5 MG Tab PO PRN ×2 (02:46→22:55)
[2016-10-17] MEDS: Omeprazole 20 MG Cap.CR PO SCH (06:11)
[2016-10-17] MEDS: Potassium Chloride 10 MEQ Tab.ER PO SCH ×2 (07:13→18:00)
[2016-10-17] MEDS: Gabapentin 300 MG Cap PO SCH ×4 (07:16→22:12)
[2016-10-17] MEDS: Acetaminophen 500 MG Tab PO SCH ×3 (07:17→22:10)
[2016-10-17] MEDS: Doxycycline 100 MG Cap PO SCH ×3 (07:19→22:08)
[2016-10-17] MEDS: buPROPion 150 MG Tab.ER PO SCH ×2 (07:20→10:04)
[2016-10-17] MEDS: LORazepam 0.5 MG Tab PO PRN (07:21)
[2016-10-17] MEDS: PROBIOTIC PO SCH ×3 (07:22→22:12)
[2016-10-17] MEDS: Nystatin Topical Powder 30 GM Bottle TOP SCH ×3 (07:27→22:24)
[2016-10-17] MEDS: Polyethylene Glycol 3350 Powder 17 GM Packet PO SCH (15:26)
[2016-10-17] MEDS: Furosemide 20 MG Tab PO SCH (15:27)
[2016-10-17] MEDS: Calcium Carbonate/Vitamin D3 1250 MG-200 Unit Tab PO SCH (15:28)
[2016-10-17] MEDS: Mineral Oil/Petrolatum/Phenylephrine/Shark Liver Oil Oint 57 GM Tube RECTAL PRN (18:05)
[2016-10-17] MEDS: atorvaSTATin 10 MG Tab PO SCH (22:08)
[2016-10-17] MEDS: Cyanocobalamin (Vitamin B12) 100 MCG Tab PO SCH (22:08)
[2016-10-17] MEDS: Donepezil 10 MG Tab PO SCH (22:08)
[2016-10-17] MEDS: Montelukast 10 MG Tab PO SCH (22:10)
[2016-10-17] MEDS: CRANBERRY PO SCH (22:13)
[2016-10-17] MEDS: ESTROGENS CONJUGATED VAG SCH (22:14)
[2016-10-17] MEDS: Zolpidem 5 MG Tab PO PRN (22:53)
[2016-10-17] MEDS: LORazepam 1 MG Tab PO PRN (22:53)
[2016-10-17] MEDS: Ondansetron 4 MG Tab.DIS PO PRN (22:58)
[2016-10-18] MEDS: Omeprazole 20 MG Cap.CR PO SCH (06:03)
[2016-10-18 07:13] LABS: CHLORIDE,CL 104 mmol/L (101-111); SODIUM,NA 140 mmol/L (135-145)
[2016-10-18] MEDS: buPROPion 150 MG Tab.ER PO SCH (08:32)
[2016-10-18] MEDS: Potassium Chloride 10 MEQ Tab.ER PO SCH ×2 (08:32→17:31)
[2016-10-18] MEDS: Furosemide 20 MG Tab PO SCH (08:32)
[2016-10-18] MEDS: Polyethylene Glycol 3350 Powder 17 GM Packet PO SCH (08:32)
[2016-10-18] MEDS: Doxycycline 100 MG Cap PO SCH ×2 (08:32→20:56)
[2016-10-18] MEDS: Gabapentin 300 MG Cap PO SCH ×3 (08:33→20:56)
[2016-10-18] MEDS: Acetaminophen 500 MG Tab PO SCH ×2 (08:33→20:57)
[2016-10-18] MEDS: PROBIOTIC PO SCH ×2 (08:34→20:59)
[2016-10-18] MEDS: Nystatin Topical Powder 30 GM Bottle TOP SCH ×2 (08:34→21:01)
[2016-10-18] MEDS: oxyCODONE 5 MG Tab PO PRN ×2 (08:43→22:22)
--- NOTE | 2016-10-18 11:23 | PCM.PN ---
- General Info Date of Service: 10/18/16 Subjective Update: patient was admitted because of right lower extremity wound following orthopedic surgery. She underwent autologous grafting from t. thigh donor site. pain is controlled she is restricted from mobillization per orders from plastic surgery She denies any constipation or any dizziness. no cp, no sob Functional Status: Reports: pain controlled - Review of Systems General: Denies: Fever, Weakness Pulmonary: Denies: shortness of breath Cardiovascular: Denies: Chest Pain Gastrointestinal: Denies: Abdominal pain - Patient Data Vitals - most recent: Last Vital Signs Temp 37.1 C 10/18/16 08:21 Pulse 71 10/18/16 08:21 Resp 20 10/18/16 08:21 BP 116/58 L 10/18/16 08:21 Pulse Ox 98 10/18/16 08:21 Weight - most recent: 92.624 kg I&O - last 24 hours: Intake & Output 10/17/16 10/18/16 10/18/16 22:59 06:59 14:59 Intake Total 940 520 360 Balance 940 520 360 Lab Results last 24 hrs: Laboratory Results - last 24 hr 10/18/16 10/18/16 10/18/16 Range/Units 06:34 06:34 06:34 WBC 6.8 (5.0-10.0) 10^3/uL RBC 2.99 L (4.2-5.4) 10^6/uL Hgb 8.6 L (12.0-16.0) g/dL Hct 27.6 L (37.0-47.0) % MCV 92.3 (80-100) fL MCH 28.8 (27.0-34.0) pg MCHC 31.2 L (33.0-35.0) g/dL Plt Count 357 (150-450) 10^3/uL Neut % (Auto) 49.8 (42.2-75.2) % Lymph % (Auto) 32.5 (20.5-50.1) % Mcculloch % (Auto) 12.6 H (2-8) % Eos % (Auto) 4.5 H (1.0-3.0) % Baso % (Auto) 0.6 (0.0-1.0) % PT 19.8 H (9.0-12.0) SEC INR 2.0 H (0.9-1.2) Sodium 140 (135-145) mmol/L Potassium 4.2 (3.6-5.0) mmol/L Chloride 104 (101-111) mmol/L Carbon Dioxide 28.0 (21.0-31.0) mmol/L Anion Gap 12.2 BUN 17 (7-18) mg/dL Creatinine 0.7 (0.6-1.3) mg/dL Est Cr Clr Drug Dosing 55.35 mL/min Estimated GFR (MDRD) > 60 Glucose 87 (74-105) mg/dL Calcium 8.7 (8.4-10.2) mg/dl Med Orders - Current: Current Medications Acetaminophen (Tylenol Extra Strength) 1,000 mg PO BID [facility] Last Admin: 10/18/16 08:33 Dose: 1,000 mg Atorvastatin Calcium (Lipitor) 20 mg PO BEDTIME [facility] Last Admin: 10/17/16 22:08 Dose: 20 mg Bupropion HCl (Wellbutrin Xl) 150 mg PO DAILY [facility] Last Admin: 10/18/16 08:32 Dose: 150 mg Calcium Carbonate (Calcium Carbonate/Vitamin D 1250 Mg-200 Unit) 1 tab PO DAILY @1200 [facility] Last Admin: 10/17/16 15:28 Dose: 1 tab Cyanocobalamin (Vitamin B12) 500 mcg PO BEDTIME [facility] Last Admin: 10/17/16 22:08 Dose: 500 mcg Docusate Sodium (Colace) 200 mg PO BID PRN PRN Reason: Constipation Last Admin: 10/11/16 23:00 Dose: 200 mg Donepezil HCl (Aricept) 10 mg PO BEDTIME [facility] Last Admin: 10/17/16 22:08 Dose: 10 mg Doxycycline Hyclate (Vibramycin) 100 mg PO BID [facility] Stop: 10/20/16 09:00 Last Admin: 10/18/16 08:32 Dose: 100 mg Furosemide (Lasix) 20 mg PO DAILY [facility] Last Admin: 10/18/16 08:32 Dose: 20 mg Gabapentin (Neurontin) 300 mg PO TID [facility] Last Admin: 10/18/16 08:33 Dose: 300 mg Lorazepam (Ativan) 0.5 mg PO Q6H PRN PRN Reason: Anxiety Last Admin: 10/17/16 07:21 Dose: 0.5 mg Lorazepam (Ativan) 1 mg PO BEDTIME PRN PRN Reason: insomnia Last Admin: 10/17/16 22:53 Dose: 1 mg Montelukast Sodium (Singulair) 10 mg PO BEDTIME [facility] Last Admin: 10/17/16 22:10 Dose: 10 mg Patients Own Med [ (Probiotic]) 1 each PO BID [facility] Last Admin: 10/18/16 08:34 Dose: 1 each Patients Own Med[ (Cranberry] Tabs) 1 tab PO BEDTIME [facility] Last Admin: 10/17/16 22:13 Dose: 1 tab Estrogens, Conjugated [Premarin ] Vaginal Cap Own Med 0 cap VAG MoTh@2100 [facility] Last Admin: 10/17/16 22:14 Dose: Not Given Nystatin (Nystop) 0 gm TOP BID [facility] Last Admin: 10/18/16 08:34 Dose: 1 applic Omeprazole (Omeprazole) 20 mg PO ACBRK [facility] Last Admin: 10/18/16 06:03 Dose: 20 mg Ondansetron HCl (Zofran Odt) 4 mg PO Q6H PRN PRN Reason: nausea, able to take PO Last Admin: 10/17/16 22:58 Dose: 4 mg Oxycodone HCl (Oxycodone) 10 mg PO BEDTIME PRN PRN Reason: Pain Last Admin: 10/17/16 22:55 Dose: 10 mg Oxycodone HCl (Oxycodone) 5 mg PO Q6H PRN PRN Reason: Pain Last Admin: 10/18/16 08:43 Dose: 5 mg Phenyleph/Shark Oil/Min Oil/Petrol (Preparation H Oint) 0 gm RECTAL BID PRN PRN Reason: rectal dyscomfort Last Admin: 10/17/16 18:05 Dose: 1 applic Polyethylene Glycol (Miralax) 17 gm PO DAILY [facility] Last Admin: 10/18/16 08:32 Dose: 17 gm Polysaccharide Iron Complex (Ferrex 150) 150 mg PO DAILY [facility] Potassium Chloride (Klor-Con 10) 10 meq PO BIDMEALS [facility] Last Admin: 10/18/16 08:32 Dose: 10 meq Warfarin Sodium (Pharmacy To Dose - Warfarin) 1 dose .XX ASDIRECTED [facility] Zolpidem Tartrate (Ambien) 5 mg PO BEDTIME PRN PRN Reason: Sleep Last Admin: 10/17/16 22:53 Dose: 5 mg Discontinued Medications Calcium Carbonate (Calcium Carbonate/Vitamin D 1250 Mg-200 Unit) 1 tab PO DAILY [facility] Last Admin: 10/10/16 09:34 Dose: Not Given Docusate Sodium (Colace) 100 mg PO BID PRN PRN Reason: Constipation Gabapentin (Neurontin) 100 mg PO TID [facility] Lorazepam (Ativan) 1 mg PO BEDTIME PRN PRN Reason: Anxiety Lorazepam (Ativan) 0.5 mg PO BEDTIME PRN PRN Reason: Anxiety Last Admin: 10/03/16 23:24 Dose: 0.5 mg Oxycodone HCl (Oxycodone) 10 mg PO Q4H PRN PRN Reason: Pain Oxycodone HCl (Oxycodone) 5 mg PO Q4H PRN PRN Reason: Pain Last Admin: 10/09/16 22:55 Dose: 5 mg Oxycodone HCl (Oxycodone) 5 mg PO ONETIME ONE Stop: 10/02/16 20:04 Last Admin: 10/02/16 20:25 Dose: 5 mg Oxycodone HCl (Oxycodone) 10 mg PO Q6H PRN PRN Reason: Pain Last Admin: 10/13/16 09:56 Dose: 5 mg Polyethylene Glycol (Miralax) 17 gm PO DAILY PRN PRN Reason: Constipation Last Admin: 10/06/16 09:09 Dose: 17 gm Warfarin Sodium (Coumadin) 4 mg PO ONETIME ONE Stop: 09/29/16 17:01 Last Admin: 09/29/16 20:04 Dose: Not Given Warfarin Sodium (Coumadin) 5 mg PO ONETIME ONE Stop: 09/30/16 14:01 Last Admin: 09/30/16 13:57 Dose: 5 mg Warfarin Sodium (Coumadin) 5 mg PO ONETIME ONE Stop: 10/01/16 14:01 Last Admin: 10/01/16 14:59 Dose: 5 mg Warfarin Sodium (Coumadin) 5 mg PO ONETIME ONE Stop: 10/02/16 14:01 Last Admin: 10/02/16 14:02 Dose: 5 mg Warfarin Sodium (Coumadin) 4 mg PO ONETIME ONE Stop: 10/03/16 14:01 Last Admin: 10/03/16 13:32 Dose: 4 mg Warfarin Sodium (Coumadin) 5 mg PO ONETIME ONE Stop: 10/04/16 14:01 Last Admin: 10/04/16 14:51 Dose: 5 mg Warfarin Sodium (Coumadin) 5 mg PO ONETIME ONE Stop: 10/05/16 14:01 Last Admin: 10/05/16 14:27 Dose: 5 mg Warfarin Sodium (Coumadin) 4 mg PO ONETIME ONE Stop: 10/06/16 14:01 Last Admin: 10/06/16 14:39 Dose: 4 mg Warfarin Sodium (Coumadin) 5 mg PO ONETIME ONE Stop: 10/11/16 14:16 Last Admin: 10/11/16 14:30 Dose: 5 mg Warfarin Sodium (Coumadin) 7.5 mg PO ONETIME ONE Stop: 10/12/16 14:01 Last Admin: 10/12/16 13:50 Dose: 7.5 mg Warfarin Sodium (Coumadin) 7.5 mg PO ONETIME ONE Stop: 10/13/16 14:01 Last Admin: 10/13/16 14:03 Dose: 7.5 mg Warfarin Sodium (Coumadin) 7.5 mg PO ONETIME ONE Stop: 10/14/16 14:01 Last Admin: 10/14/16 14:16 Dose: 7.5 mg Warfarin Sodium (Coumadin) 5 mg PO ONETIME ONE Stop: 10/15/16 14:01 Last Admin: 10/15/16 13:50 Dose: 5 mg Warfarin Sodium (Coumadin) 2 mg PO ONETIME ONE Stop: 10/16/16 14:01 Last Admin: 10/16/16 14:07 Dose: 2 mg Warfarin Sodium (Coumadin) 2 mg PO DAILY@1400 [facility] Stop: 10/17/16 14:01 Last Admin: 10/17/16 15:28 Dose: 2 mg - Exam Quality Assessment: No: supplemental oxygen General: alert, moderate distress Neck: supple Lungs: Clear to auscultation, Normal respiratory effort Cardiovascular: Regular Rate, Regular Rhythm Extremities: other (r. ann wrap, left lymphedema wrap) Neurological: no new focal deficit Psy/Mental Status: alert, normal affect, normal mood - Problem List & Annotations (1) Leg wound, right SNOMED Code(s): 601247579, 020095780 Code(s): S81.801A - UNSPECIFIED OPEN WOUND, RIGHT LOWER LEG, INITIAL ENCOUNTER Status: Acute Current Visit: Yes (2) Afib SNOMED Code(s): 61982993 Code(s): I48.91 - UNSPECIFIED ATRIAL FIBRILLATION Status: Acute Current Visit: Yes (3) Chronic diastolic (congestive) heart failure SNOMED Code(s): 139900830, 976113794 Code(s): I50.32 - CHRONIC DIASTOLIC (CONGESTIVE) HEART FAILURE Status: Acute Current Visit: Yes - Problem List Review Problem List Initiated/Reviewed/Updated: Yes - My Orders Last 24 Hours: My Active Orders 10/17/16 13:34 Communication Order [RC] 10/17/16 14:59 Communication Order [RC] DAILY 10/19/16 09:00 Iron Polysaccharides Complex [Ferrex 150] 150 mg PO DAILY - Plan Plan:: 1. right leg ulcer with eschar This was likely due to venous stasis blister and injury. 09/26 underwent R. LE I&D continue wound care with VAC underwent skin graft by plastic surgery continue wound care Pain control with oxycodone control edema with diuretics 2. Atrial fibrillation. She currently appears to have a regular rate. Anticoagulation for atrial fibrillation and deep venous thrombosis (DVT) prophylaxis will be with full-dose Coumadin. 4. Gastroesophageal reflux disease. Treat with Protonix. 5. Chronic diastolic CHF controlled 6. anxiety use Ativan p.r.n.
[2016-10-18] MEDS: Calcium Carbonate/Vitamin D3 1250 MG-200 Unit Tab PO SCH (12:35)
[2016-10-18] MEDS ORDERED: Warfarin 2 MG Tab PO ONE (14:00)
[2016-10-18] MEDS: LORazepam 0.5 MG Tab PO PRN (17:34)
[2016-10-18] MEDS: Donepezil 10 MG Tab PO SCH (20:55)
[2016-10-18] MEDS: Montelukast 10 MG Tab PO SCH (20:56)
[2016-10-18] MEDS: Cyanocobalamin (Vitamin B12) 100 MCG Tab PO SCH (20:56)
[2016-10-18] MEDS: atorvaSTATin 10 MG Tab PO SCH (20:57)
[2016-10-18] MEDS: CRANBERRY PO SCH (21:01)
[2016-10-18] MEDS: Zolpidem 5 MG Tab PO PRN (22:23)
[2016-10-18] MEDS: LORazepam 1 MG Tab PO PRN (22:24)
[2016-10-19] MEDS: LORazepam 0.5 MG Tab PO PRN ×2 (02:56→09:07)
[2016-10-19] MEDS: Omeprazole 20 MG Cap.CR PO SCH (06:20)
[2016-10-19] MEDS: Potassium Chloride 10 MEQ Tab.ER PO SCH ×2 (08:22→19:14)
[2016-10-19] MEDS: Furosemide 20 MG Tab PO SCH (08:22)
[2016-10-19] MEDS: Iron Polysaccharides Complex 150 MG Cap PO SCH (08:23)
[2016-10-19] MEDS: Gabapentin 300 MG Cap PO SCH ×3 (08:23→21:13)
[2016-10-19] MEDS: Acetaminophen 500 MG Tab PO SCH ×2 (08:23→21:14)
[2016-10-19] MEDS: Doxycycline 100 MG Cap PO SCH ×2 (08:26→21:12)
[2016-10-19] MEDS: buPROPion 150 MG Tab.ER PO SCH (08:26)
[2016-10-19] MEDS: PROBIOTIC PO SCH ×2 (08:27→21:16)
[2016-10-19] MEDS: Nystatin Topical Powder 30 GM Bottle TOP SCH ×2 (08:27→21:16)
[2016-10-19] MEDS: Polyethylene Glycol 3350 Powder 17 GM Packet PO SCH (08:29)
[2016-10-19] MEDS: Ondansetron 4 MG Tab.DIS PO PRN (08:35)
[2016-10-19] MEDS: oxyCODONE 5 MG Tab PO PRN ×2 (08:47→23:05)
[2016-10-19] MEDS: Calcium Carbonate/Vitamin D3 1250 MG-200 Unit Tab PO SCH (12:39)
--- NOTE | 2016-10-19 13:49 | CR ---
CLINICAL HISTORY: 81-year-old female status post total right hip replacement. INTERPRETATION: Four views right hip confirm satisfactorily "seated" acetabular and femoral componen ts of the total right hip prosthesis in the "bony host". No sign of loosening, right hip fracture or dislocation. (Prosthesis new since 11 May films). AP pelvis and contralateral left hip unremarkable.
[2016-10-19] MEDS ORDERED: Warfarin 2 MG Tab PO ONE (14:00)
[2016-10-19] MEDS: Donepezil 10 MG Tab PO SCH (21:13)
[2016-10-19] MEDS: Cyanocobalamin (Vitamin B12) 100 MCG Tab PO SCH (21:13)
[2016-10-19] MEDS: atorvaSTATin 10 MG Tab PO SCH (21:13)
[2016-10-19] MEDS: Montelukast 10 MG Tab PO SCH (21:14)
[2016-10-19] MEDS: CRANBERRY PO SCH (21:16)
[2016-10-19] MEDS: ESTROGENS CONJUGATED VAG SCH (21:47)
[2016-10-19] MEDS: LORazepam 1 MG Tab PO PRN (23:04)
[2016-10-19] MEDS: Zolpidem 5 MG Tab PO PRN (23:05)
[2016-10-20] MEDS: LORazepam 0.5 MG Tab PO PRN (01:57)
[2016-10-20] MEDS: Omeprazole 20 MG Cap.CR PO SCH (05:46)
[2016-10-20] MEDS: Polyethylene Glycol 3350 Powder 17 GM Packet PO SCH (08:10)
[2016-10-20] MEDS: Doxycycline 100 MG Cap PO SCH (08:11)
[2016-10-20] MEDS: Acetaminophen 500 MG Tab PO SCH ×2 (08:12→20:09)
[2016-10-20] MEDS: buPROPion 150 MG Tab.ER PO SCH (08:12)
[2016-10-20] MEDS: Gabapentin 300 MG Cap PO SCH ×3 (08:12→20:12)
[2016-10-20] MEDS: Furosemide 20 MG Tab PO SCH (08:12)
[2016-10-20] MEDS: Potassium Chloride 10 MEQ Tab.ER PO SCH ×2 (08:12→17:23)
[2016-10-20] MEDS: Iron Polysaccharides Complex 150 MG Cap PO SCH (08:13)
[2016-10-20] MEDS: PROBIOTIC PO SCH ×2 (08:13→20:12)
[2016-10-20] MEDS: Nystatin Topical Powder 30 GM Bottle TOP SCH ×2 (08:14→20:12)
[2016-10-20] MEDS: Docusate Sodium 100 MG Cap PO PRN (11:47)
[2016-10-20] MEDS: oxyCODONE 5 MG Tab PO PRN ×2 (11:47→20:13)
[2016-10-20] MEDS: Calcium Carbonate/Vitamin D3 1250 MG-200 Unit Tab PO SCH (11:48)
[2016-10-20] MEDS: Ondansetron 4 MG Tab.DIS PO PRN (12:31)
[2016-10-20] MEDS ORDERED: Warfarin 2 MG Tab PO ONE (14:00)
[2016-10-20] MEDS: Montelukast 10 MG Tab PO SCH (20:10)
[2016-10-20] MEDS: Donepezil 10 MG Tab PO SCH (20:11)
[2016-10-20] MEDS: Cyanocobalamin (Vitamin B12) 100 MCG Tab PO SCH (20:11)
[2016-10-20] MEDS: atorvaSTATin 10 MG Tab PO SCH (20:11)
[2016-10-20] MEDS: CRANBERRY PO SCH (20:12)
[2016-10-20] MEDS: ESTROGENS CONJUGATED VAG SCH (20:30)
[2016-10-20] MEDS: LORazepam 1 MG Tab PO PRN (22:29)
[2016-10-20] MEDS: Zolpidem 5 MG Tab PO PRN (23:26)
[2016-10-21] MEDS: Omeprazole 20 MG Cap.CR PO SCH (05:28)
[2016-10-21] MEDS: Acetaminophen 500 MG Tab PO SCH ×2 (08:20→21:46)
[2016-10-21] MEDS: Furosemide 20 MG Tab PO SCH (08:20)
[2016-10-21] MEDS: Iron Polysaccharides Complex 150 MG Cap PO SCH (08:20)
[2016-10-21] MEDS: Gabapentin 300 MG Cap PO SCH ×3 (08:20→21:45)
[2016-10-21] MEDS: Polyethylene Glycol 3350 Powder 17 GM Packet PO SCH (08:20)
[2016-10-21] MEDS: buPROPion 150 MG Tab.ER PO SCH (08:20)
[2016-10-21] MEDS: Potassium Chloride 10 MEQ Tab.ER PO SCH ×2 (08:20→17:20)
[2016-10-21] MEDS: oxyCODONE 5 MG Tab PO PRN ×3 (08:22→22:44)
[2016-10-21] MEDS: PROBIOTIC PO SCH ×2 (08:22→21:45)
[2016-10-21] MEDS: Nystatin Topical Powder 30 GM Bottle TOP SCH (08:23)
[2016-10-21] MEDS: Ondansetron 4 MG Tab.DIS PO PRN (08:43)
[2016-10-21] MEDS: LORazepam 0.5 MG Tab PO PRN ×2 (10:49→22:43)
[2016-10-21] MEDS: Fluconazole 100 MG Tab PO SCH (11:58)
[2016-10-21] MEDS: Calcium Carbonate/Vitamin D3 1250 MG-200 Unit Tab PO SCH (11:58)
--- NOTE | 2016-10-21 13:40 | PN ---
DATE: 10/21/2016 SUBJECTIVE: Mrs. Gato Vela is an 81-year-old female with a medical history significant for hypertension, hyperlipidemia, status post right hip surgery on September 09 which got complicated with difficulty to heel right lower extremity wound. She also has history of atrial fibrillation and had been on chronic anticoagulation with Coumadin. She underwent incision and debridement of the wound and got transferred back here for the swing bed. She had the surgery done by Plastic Surgery on 09/26/2016. For the last 24 hours, the patient complains of itchiness and pain around the perineal area. She has been trying some nystatin powder, which has not been helping her. She denies any chest pain. No shortness of breath. No abdominal pain. No nausea. No vomiting. No diarrhea in the last 24 hours. REVIEW OF SYSTEMS: Cardiovascular, respiratory, gastrointestinal, neurology, constitutional were all evaluated. PHYSICAL EXAMINATION: Vital signs: Temperature of 99.4, pulse of 66, blood pressure 134/53, respiratory rate of 20, and saturating at 95% on room air. General Appearance: The patient is well oriented to time, place, and person. Follows commands spontaneously. Cardiovascular System: S1, S2 heard with normal intensity. No gallops. Respiratory System: Clear to auscultation bilaterally. No wheeze. No crepitations. Abdomen: Soft. Bowel sounds positive. Nontender. No rigidity. Extremities: Bilateral edema noted in the lower extremities. Lymphedema wraps noted bilaterally. Neurology: No gross focal neurological deficits LABORATORY DATA: PT of 22.1. INR of 2.2 . MEDICATIONS: Reviewed. Continue with: 1. Tylenol 1000 mg twice a day. 2. Calcium carbonate with vitamin D one tablet daily. 3. Cyanocobalamin 500 mcg at bedtime. 4. Docusate sodium 200 mg twice a day as needed. 5. Aricept 10 mg at bedtime. 6. Diflucan 200 mg daily. 7. Lasix 20 mg daily. 8. Neurontin 300 mg three times a day. 9. Iron 150 mg daily. 10.Ativan 0.5 mg every 6 hours as needed for anxiety and also at bedtime as needed for sleep. 11.Singulair 10 mg at bedtime. 12.Omeprazole 20 mg daily. 13.Coumadin pharmacy to dose for therapeutic INR of 2-3. 14.Lipitor 20 mg at bedtime. 15.Wellbutrin 150 mg daily. 16.Oxycodone 10 mg at bedtime as needed and 5 mg every 6 hours as needed for pain. ASSESSMENT: 1. Hypertension. 2. Hyperlipidemia. 3. Right leg ulcer status post debridement. 4. Atrial fibrillation. 5. Chronic anticoagulation with Coumadin. 6. Possible perineal fungal infection. PLAN: 1. Perineal fungal infection. The patient was started on nystatin powder but this seems not to be helping with her symptoms, unsure if patient has any vaginal discharge, but the patient denied any vaginal discharge at this time. The patient will be started on oral Diflucan and we will closely follow. 2. Hypertension. Blood pressure seems to be well controlled. Continue with current treatment plan. 3. Atrial fibrillation. The patient is currently on Coumadin, continue the same. Pharmacy to dose the Coumadin for therapeutic INR of 2-3. 4. Right leg wound. Patient is status post I and D and wound VAC. Continue with wound cares for now. Continue with lymphedema wraps for edema. 5. Chronic congestive heart failure, remains stable. Continue with current dose of Lasix. 6. History of anxiety. The patient is currently on Xanax and Ativan as needed. She remained stable. Continue the same. 7. Gastroesophageal reflux disease. The patient is noted to be on omeprazole, continue the same. 8. Continue physical therapy and occupational therapy while in the swing bed. [facility] /[id number]
[2016-10-21] MEDS ORDERED: Warfarin 2 MG Tab PO SCH (14:00)
[2016-10-21] MEDS: Donepezil 10 MG Tab PO SCH (21:45)
[2016-10-21] MEDS: atorvaSTATin 10 MG Tab PO SCH (21:45)
[2016-10-21] MEDS: Cyanocobalamin (Vitamin B12) 100 MCG Tab PO SCH (21:46)
[2016-10-21] MEDS: CRANBERRY PO SCH (21:51)
[2016-10-21] MEDS: Montelukast 10 MG Tab PO SCH (21:51)
[2016-10-21] MEDS: Zolpidem 5 MG Tab PO PRN (22:43)
[2016-10-22] MEDS: Omeprazole 20 MG Cap.CR PO SCH (05:37)
[2016-10-22] MEDS: Potassium Chloride 10 MEQ Tab.ER PO SCH ×2 (08:20→17:27)
[2016-10-22] MEDS: Iron Polysaccharides Complex 150 MG Cap PO SCH (08:20)
[2016-10-22] MEDS: Furosemide 20 MG Tab PO SCH (08:20)
[2016-10-22] MEDS: Fluconazole 100 MG Tab PO SCH (08:20)
[2016-10-22] MEDS: Gabapentin 300 MG Cap PO SCH ×3 (08:20→20:36)
[2016-10-22] MEDS: buPROPion 150 MG Tab.ER PO SCH (08:21)
[2016-10-22] MEDS: Acetaminophen 500 MG Tab PO SCH ×2 (08:21→20:38)
[2016-10-22] MEDS: PROBIOTIC PO SCH ×2 (08:22→20:37)
[2016-10-22] MEDS: Polyethylene Glycol 3350 Powder 17 GM Packet PO SCH (08:23)
[2016-10-22] MEDS: Calcium Carbonate/Vitamin D3 1250 MG-200 Unit Tab PO SCH (12:25)
[2016-10-22] MEDS ORDERED: Warfarin 2 MG Tab PO ONE (14:00)
[2016-10-22] MEDS: Donepezil 10 MG Tab PO SCH (20:35)
[2016-10-22] MEDS: Cyanocobalamin (Vitamin B12) 100 MCG Tab PO SCH (20:35)
[2016-10-22] MEDS: atorvaSTATin 10 MG Tab PO SCH (20:36)
[2016-10-22] MEDS: Montelukast 10 MG Tab PO SCH (20:36)
[2016-10-22] MEDS: CRANBERRY PO SCH (20:37)
[2016-10-22] MEDS: Ondansetron 4 MG Tab.DIS PO PRN (20:59)
[2016-10-22] MEDS: LORazepam 0.5 MG Tab PO PRN (22:34)
[2016-10-22] MEDS: oxyCODONE 5 MG Tab PO PRN (22:37)
[2016-10-23] MEDS: Zolpidem 5 MG Tab PO PRN (00:21)
[2016-10-23] MEDS: LORazepam 0.5 MG Tab PO PRN (02:29)
[2016-10-23] MEDS: Omeprazole 20 MG Cap.CR PO SCH (05:04)
[2016-10-23] MEDS: Polyethylene Glycol 3350 Powder 17 GM Packet PO SCH (09:07)
[2016-10-23] MEDS: Fluconazole 100 MG Tab PO SCH (09:08)
[2016-10-23] MEDS: Potassium Chloride 10 MEQ Tab.ER PO SCH ×2 (09:08→17:41)
[2016-10-23] MEDS: Gabapentin 300 MG Cap PO SCH ×3 (09:08→21:04)
[2016-10-23] MEDS: Iron Polysaccharides Complex 150 MG Cap PO SCH (09:09)
[2016-10-23] MEDS: buPROPion 150 MG Tab.ER PO SCH (09:09)
[2016-10-23] MEDS: Acetaminophen 500 MG Tab PO SCH ×2 (09:09→21:05)
[2016-10-23] MEDS: Furosemide 20 MG Tab PO SCH (09:09)
[2016-10-23] MEDS: PROBIOTIC PO SCH ×2 (09:10→21:02)
[2016-10-23] MEDS: Calcium Carbonate/Vitamin D3 1250 MG-200 Unit Tab PO SCH (13:28)
[2016-10-23] MEDS ORDERED: Warfarin 2 MG Tab PO SCH (14:00)
[2016-10-23] MEDS: CRANBERRY PO SCH (21:01)
[2016-10-23] MEDS: Donepezil 10 MG Tab PO SCH (21:01)
[2016-10-23] MEDS: atorvaSTATin 10 MG Tab PO SCH (21:03)
[2016-10-23] MEDS: Montelukast 10 MG Tab PO SCH (21:04)
[2016-10-23] MEDS: Cyanocobalamin (Vitamin B12) 100 MCG Tab PO SCH (21:06)
[2016-10-23] MEDS: LORazepam 1 MG Tab PO PRN (21:08)
[2016-10-23] MEDS: Mineral Oil/Petrolatum/Phenylephrine/Shark Liver Oil Oint 57 GM Tube RECTAL PRN (21:36)
[2016-10-23] MEDS: oxyCODONE 5 MG Tab PO PRN (22:49)
[2016-10-24] MEDS: Zolpidem 5 MG Tab PO PRN (00:30)
[2016-10-24] MEDS: Omeprazole 20 MG Cap.CR PO SCH (05:41)
[2016-10-24] MEDS: Iron Polysaccharides Complex 150 MG Cap PO SCH (09:07)
[2016-10-24] MEDS: Furosemide 20 MG Tab PO SCH (09:07)
[2016-10-24] MEDS: Gabapentin 300 MG Cap PO SCH ×3 (09:07→20:52)
[2016-10-24] MEDS: buPROPion 150 MG Tab.ER PO SCH (09:07)
[2016-10-24] MEDS: Acetaminophen 500 MG Tab PO SCH ×2 (09:07→21:04)
[2016-10-24] MEDS: Fluconazole 100 MG Tab PO SCH (09:07)
[2016-10-24] MEDS: Potassium Chloride 10 MEQ Tab.ER PO SCH ×2 (09:07→17:10)
[2016-10-24] MEDS: PROBIOTIC PO SCH ×2 (09:08→20:49)
[2016-10-24] MEDS: Polyethylene Glycol 3350 Powder 17 GM Packet PO SCH (09:09)
[2016-10-24] MEDS: Calcium Carbonate/Vitamin D3 1250 MG-200 Unit Tab PO SCH (12:16)
[2016-10-24] MEDS: Ondansetron 4 MG Tab.DIS PO PRN (17:10)
[2016-10-24] MEDS: ESTROGENS CONJUGATED VAG SCH (20:45)
[2016-10-24] MEDS: CRANBERRY PO SCH (20:51)
[2016-10-24] MEDS: LORazepam 1 MG Tab PO PRN (20:53)
[2016-10-24] MEDS: atorvaSTATin 10 MG Tab PO SCH (20:54)
[2016-10-24] MEDS: Montelukast 10 MG Tab PO SCH (20:55)
[2016-10-24] MEDS: Donepezil 10 MG Tab PO SCH (20:55)
[2016-10-24] MEDS: Docusate Sodium 100 MG Cap PO PRN (20:59)
[2016-10-24] MEDS: Cyanocobalamin (Vitamin B12) 100 MCG Tab PO SCH (21:02)
[2016-10-25] MEDS: Zolpidem 5 MG Tab PO PRN (00:41)
[2016-10-25] MEDS: LORazepam 0.5 MG Tab PO PRN (00:41)
[2016-10-25] MEDS: Omeprazole 20 MG Cap.CR PO SCH (06:14)
[2016-10-25] MEDS: buPROPion 150 MG Tab.ER PO SCH (10:23)
[2016-10-25] MEDS: Fluconazole 100 MG Tab PO SCH (10:23)
[2016-10-25] MEDS: Acetaminophen 500 MG Tab PO SCH ×2 (10:24→21:23)
[2016-10-25] MEDS: Iron Polysaccharides Complex 150 MG Cap PO SCH (10:24)
[2016-10-25] MEDS: Potassium Chloride 10 MEQ Tab.ER PO SCH ×2 (10:24→18:25)
[2016-10-25] MEDS: Docusate Sodium 100 MG Cap PO PRN ×2 (10:24→21:20)
[2016-10-25] MEDS: Gabapentin 300 MG Cap PO SCH ×3 (10:24→21:19)
[2016-10-25] MEDS: Furosemide 20 MG Tab PO SCH (10:24)
[2016-10-25] MEDS: Polyethylene Glycol 3350 Powder 17 GM Packet PO SCH (10:26)
[2016-10-25] MEDS: PROBIOTIC PO SCH ×2 (10:26→21:16)
[2016-10-25] MEDS: Ondansetron 4 MG Tab.DIS PO PRN (11:23)
[2016-10-25] MEDS: Calcium Carbonate/Vitamin D3 1250 MG-200 Unit Tab PO SCH (11:23)
[2016-10-25] MEDS: CRANBERRY PO SCH (21:17)
[2016-10-25] MEDS: Donepezil 10 MG Tab PO SCH (21:18)
[2016-10-25] MEDS: atorvaSTATin 10 MG Tab PO SCH (21:19)
[2016-10-25] MEDS: Montelukast 10 MG Tab PO SCH (21:20)
[2016-10-25] MEDS: LORazepam 1 MG Tab PO PRN (21:21)
[2016-10-25] MEDS: Cyanocobalamin (Vitamin B12) 100 MCG Tab PO SCH (21:22)
[2016-10-26] MEDS: Zolpidem 5 MG Tab PO PRN (01:17)
[2016-10-26] MEDS: LORazepam 0.5 MG Tab PO PRN ×2 (01:17→15:08)
[2016-10-26] MEDS: oxyCODONE 5 MG Tab PO PRN ×2 (04:07→15:08)
[2016-10-26] MEDS: Omeprazole 20 MG Cap.CR PO SCH (06:01)
[2016-10-26] MEDS: Polyethylene Glycol 3350 Powder 17 GM Packet PO SCH (08:49)
[2016-10-26] MEDS: Fluconazole 100 MG Tab PO SCH (08:50)
[2016-10-26] MEDS: Gabapentin 300 MG Cap PO SCH ×3 (08:50→21:26)
[2016-10-26] MEDS: Potassium Chloride 10 MEQ Tab.ER PO SCH ×2 (08:51→18:08)
[2016-10-26] MEDS: buPROPion 150 MG Tab.ER PO SCH (08:51)
[2016-10-26] MEDS: Iron Polysaccharides Complex 150 MG Cap PO SCH (08:51)
[2016-10-26] MEDS: PROBIOTIC PO SCH ×2 (08:51→21:27)
[2016-10-26] MEDS: Furosemide 20 MG Tab PO SCH (08:52)
[2016-10-26] MEDS: Acetaminophen 500 MG Tab PO SCH ×2 (08:52→21:26)
[2016-10-26] MEDS: Calcium Carbonate/Vitamin D3 1250 MG-200 Unit Tab PO SCH (12:32)
[2016-10-26] MEDS ORDERED: Warfarin 2 MG Tab PO ONE (14:00)
[2016-10-26] MEDS: Cyanocobalamin (Vitamin B12) 100 MCG Tab PO SCH (21:25)
[2016-10-26] MEDS: atorvaSTATin 10 MG Tab PO SCH (21:26)
[2016-10-26] MEDS: Donepezil 10 MG Tab PO SCH (21:26)
[2016-10-26] MEDS: Montelukast 10 MG Tab PO SCH (21:26)
[2016-10-26] MEDS: CRANBERRY PO SCH (21:27)
[2016-10-27] MEDS: LORazepam 1 MG Tab PO PRN (02:51)
[2016-10-27] MEDS: Omeprazole 20 MG Cap.CR PO SCH (05:17)
[2016-10-27] MEDS: Polyethylene Glycol 3350 Powder 17 GM Packet PO SCH (10:26)
[2016-10-27] MEDS: Potassium Chloride 10 MEQ Tab.ER PO SCH ×2 (10:26→17:49)
[2016-10-27] MEDS: buPROPion 150 MG Tab.ER PO SCH (10:27)
[2016-10-27] MEDS: Acetaminophen 500 MG Tab PO SCH ×2 (10:27→21:58)
[2016-10-27] MEDS: Iron Polysaccharides Complex 150 MG Cap PO SCH (10:27)
[2016-10-27] MEDS: Fluconazole 100 MG Tab PO SCH (10:27)
[2016-10-27] MEDS: Gabapentin 300 MG Cap PO SCH ×3 (10:28→21:57)
[2016-10-27] MEDS: Furosemide 20 MG Tab PO SCH (10:28)
[2016-10-27] MEDS: PROBIOTIC PO SCH ×2 (10:28→22:01)
--- NOTE | 2016-10-27 11:38 | PCM.PN ---
- General Info Date of Service: 10/27/16 Admission Dx/Problem (Free Text): Right foot wound, status post debridement on 09/26/16 Subjective Update: patient was admitted because of right lower extremity wound following orthopedic surgery. She underwent autologous grafting on 09/26/16. thigh donor site. pain is controlled. She is on nonweightbearing until being seen by plastic surgery again. She says she is feeling fine. She denies fever, chills, nausea, vomiting, chest pain, shortness breath, abdominal pain, black stools, pencil, diarrhea, urine symptoms, any others complaints or concerns. - Patient Data Vitals - most recent: Last Vital Signs Temp 36.9 C 10/27/16 07:00 Pulse 71 10/27/16 07:00 Resp 20 10/27/16 07:00 BP 126/58 L 10/27/16 07:00 Pulse Ox 96 10/27/16 07:00 Weight - most recent: 87.18 kg I&O - last 24 hours: Intake & Output 10/26/16 10/27/16 10/27/16 22:59 06:59 14:59 Intake Total 795 125 Balance 795 125 Lab Results last 24 hrs: Laboratory Results - last 24 hr 10/27/16 Range/Units 05:55 PT 23.2 H (9.0-12.0) SEC INR 2.3 H (0.9-1.2) Med Orders - Current: Current Medications Acetaminophen (Tylenol Extra Strength) 1,000 mg PO BID [facility] Last Admin: 10/27/16 10:27 Dose: 1,000 mg Atorvastatin Calcium (Lipitor) 20 mg PO BEDTIME [facility] Last Admin: 10/26/16 21:26 Dose: 20 mg Bupropion HCl (Wellbutrin Xl) 150 mg PO DAILY [facility] Last Admin: 10/27/16 10:27 Dose: 150 mg Calcium Carbonate (Calcium Carbonate/Vitamin D 1250 Mg-200 Unit) 1 tab PO DAILY @1200 [facility] Last Admin: 10/26/16 12:32 Dose: 1 tab Cyanocobalamin (Vitamin B12) 500 mcg PO BEDTIME [facility] Last Admin: 10/26/16 21:25 Dose: 500 mcg Docusate Sodium (Colace) 200 mg PO BID PRN PRN Reason: Constipation Last Admin: 10/25/16 21:20 Dose: 100 mg Donepezil HCl (Aricept) 10 mg PO BEDTIME [facility] Last Admin: 10/26/16 21:26 Dose: 10 mg Fluconazole (Diflucan) 200 mg PO DAILY [facility] Last Admin: 10/27/16 10:27 Dose: 200 mg Furosemide (Lasix) 20 mg PO DAILY [facility] Last Admin: 10/27/16 10:28 Dose: 20 mg Gabapentin (Neurontin) 300 mg PO TID [facility] Last Admin: 10/27/16 10:28 Dose: 300 mg Lorazepam (Ativan) 0.5 mg PO Q6H PRN PRN Reason: Anxiety Last Admin: 10/26/16 15:08 Dose: 0.5 mg Lorazepam (Ativan) 1 mg PO BEDTIME PRN PRN Reason: insomnia Last Admin: 10/27/16 02:51 Dose: 1 mg Montelukast Sodium (Singulair) 10 mg PO BEDTIME [facility] Last Admin: 10/26/16 21:26 Dose: 10 mg Patients Own Med [ (Probiotic]) 1 each PO BID [facility] Last Admin: 10/27/16 10:28 Dose: 1 each Patients Own Med[ (Cranberry] Tabs) 1 tab PO BEDTIME [facility] Last Admin: 10/26/16 21:27 Dose: 1 tab Estrogens, Conjugated [Premarin ] Vaginal Cap Own Med 0 cap VAG MoTh@2100 [facility] Last Admin: 10/24/16 20:45 Dose: 1 cap Omeprazole (Omeprazole) 20 mg PO ACBRK [facility] Last Admin: 10/27/16 05:17 Dose: 20 mg Ondansetron HCl (Zofran Odt) 4 mg PO Q6H PRN PRN Reason: nausea, able to take PO Last Admin: 10/25/16 11:23 Dose: 4 mg Oxycodone HCl (Oxycodone) 10 mg PO BEDTIME PRN PRN Reason: Pain Last Admin: 10/23/16 22:49 Dose: 10 mg Oxycodone HCl (Oxycodone) 5 mg PO Q6H PRN PRN Reason: Pain Last Admin: 10/26/16 15:08 Dose: 5 mg Phenyleph/Shark Oil/Min Oil/Petrol (Preparation H Oint) 0 gm RECTAL BID PRN PRN Reason: rectal dyscomfort Last Admin: 06/18/17 21:36 Dose: 1 applic Polyethylene Glycol (Miralax) 17 gm PO DAILY [facility] Last Admin: 10/27/16 10:26 Dose: 17 gm Polysaccharide Iron Complex (Ferrex 150) 150 mg PO DAILY [facility] Last Admin: 10/27/16 10:27 Dose: 150 mg Potassium Chloride (Klor-Con 10) 10 meq PO BIDMEALS [facility] Last Admin: 10/27/16 10:26 Dose: 10 meq Warfarin Sodium (Pharmacy To Dose - Warfarin) 1 dose .XX ASDIRECTED [facility] Warfarin Sodium (Coumadin) 2 mg PO ONETIME ONE Stop: 10/27/16 14:01 Zolpidem Tartrate (Ambien) 5 mg PO BEDTIME PRN PRN Reason: Sleep Last Admin: 10/26/16 01:17 Dose: 5 mg Discontinued Medications Calcium Carbonate (Calcium Carbonate/Vitamin D 1250 Mg-200 Unit) 1 tab PO DAILY [facility] Last Admin: 10/10/16 09:34 Dose: Not Given Docusate Sodium (Colace) 100 mg PO BID PRN PRN Reason: Constipation Doxycycline Hyclate (Vibramycin) 100 mg PO BID [facility] Stop: 10/20/16 09:00 Last Admin: 10/20/16 08:11 Dose: 100 mg Gabapentin (Neurontin) 100 mg PO TID [facility] Lorazepam (Ativan) 1 mg PO BEDTIME PRN PRN Reason: Anxiety Lorazepam (Ativan) 0.5 mg PO BEDTIME PRN PRN Reason: Anxiety Last Admin: 10/03/16 23:24 Dose: 0.5 mg Nystatin (Nystop) 0 gm TOP BID [facility] Last Admin: 10/21/16 08:23 Dose: 1 applic Oxycodone HCl (Oxycodone) 10 mg PO Q4H PRN PRN Reason: Pain Oxycodone HCl (Oxycodone) 5 mg PO Q4H PRN PRN Reason: Pain Last Admin: 10/09/16 22:55 Dose: 5 mg Oxycodone HCl (Oxycodone) 5 mg PO ONETIME ONE Stop: 10/02/16 20:04 Last Admin: 10/02/16 20:25 Dose: 5 mg Oxycodone HCl (Oxycodone) 10 mg PO Q6H PRN PRN Reason: Pain Last Admin: 10/13/16 09:56 Dose: 5 mg Polyethylene Glycol (Miralax) 17 gm PO DAILY PRN PRN Reason: Constipation Last Admin: 10/06/16 09:09 Dose: 17 gm Warfarin Sodium (Coumadin) 4 mg PO ONETIME ONE Stop: 09/29/16 17:01 Last Admin: 09/29/16 20:04 Dose: Not Given Warfarin Sodium (Coumadin) 5 mg PO ONETIME ONE Stop: 09/30/16 14:01 Last Admin: 09/30/16 13:57 Dose: 5 mg Warfarin Sodium (Coumadin) 5 mg PO ONETIME ONE Stop: 10/01/16 14:01 Last Admin: 10/01/16 14:59 Dose: 5 mg Warfarin Sodium (Coumadin) 5 mg PO ONETIME ONE Stop: 10/02/16 14:01 Last Admin: 10/02/16 14:02 Dose: 5 mg Warfarin Sodium (Coumadin) 4 mg PO ONETIME ONE Stop: 10/03/16 14:01 Last Admin: 10/03/16 13:32 Dose: 4 mg Warfarin Sodium (Coumadin) 5 mg PO ONETIME ONE Stop: 10/04/16 14:01 Last Admin: 10/04/16 14:51 Dose: 5 mg Warfarin Sodium (Coumadin) 5 mg PO ONETIME ONE Stop: 10/05/16 14:01 Last Admin: 10/05/16 14:27 Dose: 5 mg Warfarin Sodium (Coumadin) 4 mg PO ONETIME ONE Stop: 10/06/16 14:01 Last Admin: 10/06/16 14:39 Dose: 4 mg Warfarin Sodium (Coumadin) 5 mg PO ONETIME ONE Stop: 10/11/16 14:16 Last Admin: 10/11/16 14:30 Dose: 5 mg Warfarin Sodium (Coumadin) 7.5 mg PO ONETIME ONE Stop: 10/12/16 14:01 Last Admin: 10/12/16 13:50 Dose: 7.5 mg Warfarin Sodium (Coumadin) 7.5 mg PO ONETIME ONE Stop: 10/13/16 14:01 Last Admin: 10/13/16 14:03 Dose: 7.5 mg Warfarin Sodium (Coumadin) 7.5 mg PO ONETIME ONE Stop: 10/14/16 14:01 Last Admin: 10/14/16 14:16 Dose: 7.5 mg Warfarin Sodium (Coumadin) 5 mg PO ONETIME ONE Stop: 10/15/16 14:01 Last Admin: 10/15/16 13:50 Dose: 5 mg Warfarin Sodium (Coumadin) 2 mg PO ONETIME ONE Stop: 10/16/16 14:01 Last Admin: 10/16/16 14:07 Dose: 2 mg Warfarin Sodium (Coumadin) 2 mg PO DAILY@1400 [facility] Stop: 10/17/16 14:01 Last Admin: 10/17/16 15:28 Dose: 2 mg Warfarin Sodium (Coumadin) 4 mg PO ONETIME ONE Stop: 10/18/16 14:01 Last Admin: 10/18/16 15:03 Dose: 4 mg Warfarin Sodium (Coumadin) 4 mg PO ONETIME ONE Stop: 10/19/16 14:01 Last Admin: 10/19/16 13:36 Dose: 4 mg Warfarin Sodium (Coumadin) 4 mg PO ONETIME ONE Stop: 10/20/16 14:01 Last Admin: 10/20/16 13:36 Dose: 4 mg Warfarin Sodium (Coumadin) 4 mg PO DAILY@1400 [facility] Stop: 10/21/16 14:01 Last Admin: 10/21/16 14:34 Dose: 4 mg Warfarin Sodium (Coumadin) 4 mg PO ONETIME ONE Stop: 10/22/16 14:01 Last Admin: 10/22/16 13:21 Dose: 4 mg Warfarin Sodium (Coumadin) 4 mg PO DAILY@1400 [facility] Last Admin: 10/23/16 13:27 Dose: 4 mg Warfarin Sodium (Coumadin) 2 mg PO ONETIME ONE Stop: 10/26/16 14:01 Last Admin: 10/26/16 13:33 Dose: 2 mg - Exam General: alert, oriented, cooperative, no acute distress. No: mild distress, moderate distress, severe distress, sedated, lethargic, obtunded HEENT: Pupils equal, Pupils reactive, EOMI, Mucous membr. moist/pink Neck: supple, trachea midline, no JVD Lungs: Clear to auscultation, Normal respiratory effort. No: Crackles, Rales, Rhonchi, Rub, Stridor, Wheezing Cardiovascular: Regular Rate, Regular Rhythm Abdomen: bowel sounds present, soft, no tenderness, no distension. No: rigidity , rebound, guarding, tenderness, distension, abnormal bowel sounds (Female) Exam: Deferred Back Exam: Normal Inspection, Full Range of Motion Extremities: normal pulses, no clubbing, no cyanosis, no calf tenderness, other (Right the leg and foot has clean/dry/intact dressing. I do not appreciate cellulitis on the exposed skin around dressing) Skin: warm, dry, intact Psy/Mental Status: alert, normal affect, normal mood - Problem List Review Problem List Initiated/Reviewed/Updated: Yes - My Orders Last 24 Hours: My Active Orders 11/03/16 05:00 INR,PT,PROTHROMBIN TIME [COAG] Routine - Plan Plan:: Right leg wound status post debridement and autograft on 09/26/16 This was likely due to venous stasis blister and injury. Continued follow-up with plastic surgery continue wound care by plastic surgery Atrial fibrillation. Continue Coumadin thrombosis (DVT) prophylaxis will be with full-dose Coumadin. Gastroesophageal reflux disease. Continue Protonix. Chronic diastolic CHF controlled Continue current treatment Anxity Ativan p.r.n. Anemia Acute. Suspect from blood loss in surgery. Hgb stable History of CAD No hx of SC or stents. Continue home statin. Not on aspirin/plavix. she is being followed by Dr. Chavez HTN controlled Without medications Will watch clinically Depression Continue Wellbutrin Dementia Continue Aricept Neuropathy Continue gabapentin
[2016-10-27] MEDS: Calcium Carbonate/Vitamin D3 1250 MG-200 Unit Tab PO SCH (13:51)
[2016-10-27] MEDS ORDERED: Warfarin 2 MG Tab PO ONE (14:00)
[2016-10-27] MEDS: ESTROGENS CONJUGATED VAG SCH (21:53)
[2016-10-27] MEDS: Montelukast 10 MG Tab PO SCH (21:56)
[2016-10-27] MEDS: Donepezil 10 MG Tab PO SCH (21:56)
[2016-10-27] MEDS: atorvaSTATin 10 MG Tab PO SCH (21:57)
[2016-10-27] MEDS: Cyanocobalamin (Vitamin B12) 100 MCG Tab PO SCH (21:58)
[2016-10-27] MEDS: CRANBERRY PO SCH (22:00)
[2016-10-27] MEDS: oxyCODONE 5 MG Tab PO PRN (22:14)
[2016-10-27] MEDS: Zolpidem 5 MG Tab PO PRN (22:15)
[2016-10-27] MEDS: Ondansetron 4 MG Tab.DIS PO PRN (22:19)
[2016-10-28] MEDS: LORazepam 1 MG Tab PO PRN (01:58)
[2016-10-28] MEDS: Omeprazole 20 MG Cap.CR PO SCH (05:41)
[2016-10-28] MEDS: oxyCODONE 5 MG Tab PO PRN (05:45)
[2016-10-28] MEDS: Gabapentin 300 MG Cap PO SCH ×3 (10:12→20:30)
[2016-10-28] MEDS: Iron Polysaccharides Complex 150 MG Cap PO SCH (10:13)
[2016-10-28] MEDS: Furosemide 20 MG Tab PO SCH (10:13)
[2016-10-28] MEDS: Fluconazole 100 MG Tab PO SCH (10:13)
[2016-10-28] MEDS: buPROPion 150 MG Tab.ER PO SCH (10:13)
[2016-10-28] MEDS: PROBIOTIC PO SCH ×2 (10:14→20:31)
[2016-10-28] MEDS: Acetaminophen 500 MG Tab PO SCH ×2 (10:14→20:30)
[2016-10-28] MEDS: Polyethylene Glycol 3350 Powder 17 GM Packet PO SCH (10:15)
[2016-10-28] MEDS: Potassium Chloride 10 MEQ Tab.ER PO SCH ×2 (10:21→17:42)
[2016-10-28] MEDS: Calcium Carbonate/Vitamin D3 1250 MG-200 Unit Tab PO SCH (12:46)
[2016-10-28] MEDS: atorvaSTATin 10 MG Tab PO SCH (20:30)
[2016-10-28] MEDS: Donepezil 10 MG Tab PO SCH (20:30)
[2016-10-28] MEDS: Cyanocobalamin (Vitamin B12) 100 MCG Tab PO SCH (20:30)
[2016-10-28] MEDS: Montelukast 10 MG Tab PO SCH (20:31)
[2016-10-28] MEDS: CRANBERRY PO SCH (20:32)
[2016-10-29] MEDS: Zolpidem 5 MG Tab PO PRN (01:30)
[2016-10-29] MEDS: LORazepam 1 MG Tab PO PRN (01:31)
[2016-10-29] MEDS: Ondansetron 4 MG Tab.DIS PO PRN (01:43)
[2016-10-29] MEDS: Omeprazole 20 MG Cap.CR PO SCH (06:17)
[2016-10-29] MEDS: Potassium Chloride 10 MEQ Tab.ER PO SCH ×2 (09:45→18:31)
[2016-10-29] MEDS: Acetaminophen 500 MG Tab PO SCH ×2 (09:45→21:20)
[2016-10-29] MEDS: Furosemide 20 MG Tab PO SCH (09:46)
[2016-10-29] MEDS: buPROPion 150 MG Tab.ER PO SCH (09:46)
[2016-10-29] MEDS: Gabapentin 300 MG Cap PO SCH ×3 (09:46→21:19)
[2016-10-29] MEDS: Iron Polysaccharides Complex 150 MG Cap PO SCH (09:46)
[2016-10-29] MEDS: Fluconazole 100 MG Tab PO SCH (09:46)
[2016-10-29] MEDS: PROBIOTIC PO SCH ×2 (09:47→21:18)
[2016-10-29] MEDS: Polyethylene Glycol 3350 Powder 17 GM Packet PO SCH (09:48)
[2016-10-29] MEDS: LORazepam 0.5 MG Tab PO PRN ×2 (09:55→21:20)
[2016-10-29] MEDS: Calcium Carbonate/Vitamin D3 1250 MG-200 Unit Tab PO SCH (13:27)
[2016-10-29] MEDS ORDERED: Warfarin 2 MG Tab PO SCH (14:00)
[2016-10-29] MEDS: atorvaSTATin 10 MG Tab PO SCH (21:19)
[2016-10-29] MEDS: CRANBERRY PO SCH (21:19)
[2016-10-29] MEDS: Cyanocobalamin (Vitamin B12) 100 MCG Tab PO SCH (21:20)
[2016-10-29] MEDS: Donepezil 10 MG Tab PO SCH (21:21)
[2016-10-29] MEDS: Montelukast 10 MG Tab PO SCH (21:21)
[2016-10-30] MEDS: LORazepam 0.5 MG Tab PO PRN ×2 (03:14→12:18)
[2016-10-30] MEDS: Omeprazole 20 MG Cap.CR PO SCH (05:48)
[2016-10-30] MEDS: PROBIOTIC PO SCH ×2 (10:39→21:25)
[2016-10-30] MEDS: Iron Polysaccharides Complex 150 MG Cap PO SCH (10:43)
[2016-10-30] MEDS: Furosemide 20 MG Tab PO SCH (10:43)
[2016-10-30] MEDS: Gabapentin 300 MG Cap PO SCH ×3 (10:43→21:24)
[2016-10-30] MEDS: Fluconazole 100 MG Tab PO SCH (10:43)
[2016-10-30] MEDS: Acetaminophen 500 MG Tab PO SCH ×3 (10:44→21:24)
[2016-10-30] MEDS: buPROPion 150 MG Tab.ER PO SCH (10:44)
[2016-10-30] MEDS: Polyethylene Glycol 3350 Powder 17 GM Packet PO SCH (10:45)
[2016-10-30] MEDS: Docusate Sodium 100 MG Cap PO PRN (10:53)
[2016-10-30] MEDS: Ondansetron 4 MG Tab.DIS PO PRN (12:18)
[2016-10-30] MEDS ORDERED: Warfarin 2 MG Tab PO ONE (14:00)
[2016-10-30] MEDS: Potassium Chloride 10 MEQ Tab.ER PO SCH ×2 (14:13→17:38)
[2016-10-30] MEDS: Calcium Carbonate/Vitamin D3 1250 MG-200 Unit Tab PO SCH (14:14)
[2016-10-30] MEDS: Mineral Oil/Petrolatum/Phenylephrine/Shark Liver Oil Oint 57 GM Tube RECTAL PRN (19:25)
[2016-10-30] MEDS: Montelukast 10 MG Tab PO SCH (21:23)
[2016-10-30] MEDS: Zolpidem 5 MG Tab PO PRN (21:23)
[2016-10-30] MEDS: Cyanocobalamin (Vitamin B12) 100 MCG Tab PO SCH (21:23)
[2016-10-30] MEDS: Donepezil 10 MG Tab PO SCH (21:23)
[2016-10-30] MEDS: LORazepam 1 MG Tab PO PRN (21:24)
[2016-10-30] MEDS: atorvaSTATin 10 MG Tab PO SCH (21:24)
[2016-10-30] MEDS: CRANBERRY PO SCH (21:25)
[2016-10-31] MEDS: LORazepam 0.5 MG Tab PO PRN (01:54)
[2016-10-31] MEDS: Omeprazole 20 MG Cap.CR PO SCH (05:47)
[2016-10-31] MEDS: Acetaminophen 500 MG Tab PO SCH ×2 (09:25→20:59)
[2016-10-31] MEDS: Fluconazole 100 MG Tab PO SCH (09:25)
[2016-10-31] MEDS: Iron Polysaccharides Complex 150 MG Cap PO SCH (09:25)
[2016-10-31] MEDS: Potassium Chloride 10 MEQ Tab.ER PO SCH ×2 (09:26→17:42)
[2016-10-31] MEDS: PROBIOTIC PO SCH ×2 (09:26→20:58)
[2016-10-31] MEDS: Polyethylene Glycol 3350 Powder 17 GM Packet PO SCH (09:26)
[2016-10-31] MEDS: buPROPion 150 MG Tab.ER PO SCH (09:26)
[2016-10-31] MEDS: Gabapentin 300 MG Cap PO SCH ×3 (09:26→21:00)
[2016-10-31] MEDS: Furosemide 20 MG Tab PO SCH (09:26)
[2016-10-31] MEDS: Calcium Carbonate/Vitamin D3 1250 MG-200 Unit Tab PO SCH (13:05)
[2016-10-31] MEDS ORDERED: Warfarin 2 MG Tab PO ONE (14:00)
[2016-10-31] MEDS: Montelukast 10 MG Tab PO SCH (20:58)
[2016-10-31] MEDS: CRANBERRY PO SCH (20:58)
[2016-10-31] MEDS: Donepezil 10 MG Tab PO SCH (21:00)
[2016-10-31] MEDS: atorvaSTATin 10 MG Tab PO SCH (21:00)
[2016-10-31] MEDS: Cyanocobalamin (Vitamin B12) 100 MCG Tab PO SCH (21:01)
[2016-10-31] MEDS: LORazepam 1 MG Tab PO PRN (21:08)
[2016-10-31] MEDS: ESTROGENS CONJUGATED VAG SCH (21:10)
[2016-10-31] MEDS: Zolpidem 5 MG Tab PO PRN (21:12)
[2016-10-31] MEDS: Docusate Sodium 100 MG Cap PO PRN (21:34)
[2016-11-01] MEDS: LORazepam 0.5 MG Tab PO PRN ×2 (00:58→22:00)
[2016-11-01] MEDS: Omeprazole 20 MG Cap.CR PO SCH ×2 (04:45→10:43)
[2016-11-01] MEDS: Acetaminophen 500 MG Tab PO SCH ×2 (09:23→21:59)
[2016-11-01] MEDS: Polyethylene Glycol 3350 Powder 17 GM Packet PO SCH (09:23)
[2016-11-01] MEDS: buPROPion 150 MG Tab.ER PO SCH (09:24)
[2016-11-01] MEDS: Iron Polysaccharides Complex 150 MG Cap PO SCH (09:25)
[2016-11-01] MEDS: PROBIOTIC PO SCH ×2 (09:25→22:05)
[2016-11-01] MEDS: Gabapentin 300 MG Cap PO SCH ×3 (09:25→21:59)
[2016-11-01] MEDS: Furosemide 20 MG Tab PO SCH (09:25)
[2016-11-01] MEDS: Potassium Chloride 10 MEQ Tab.ER PO SCH ×2 (09:25→17:57)
[2016-11-01] MEDS: Fluconazole 100 MG Tab PO SCH (09:25)
[2016-11-01] MEDS: Calcium Carbonate/Vitamin D3 1250 MG-200 Unit Tab PO SCH (12:59)
[2016-11-01] MEDS: Menthol/Methyl Salicylate 85 GM Tube TOP PRN (13:04)
[2016-11-01] MEDS: Warfarin 2 MG Tab PO SCH (15:04)
[2016-11-01] MEDS: oxyCODONE 5 MG Tab PO PRN (15:05)
[2016-11-01] MEDS: Cyanocobalamin (Vitamin B12) 100 MCG Tab PO SCH (21:58)
[2016-11-01] MEDS: Donepezil 10 MG Tab PO SCH (21:59)
[2016-11-01] MEDS: atorvaSTATin 10 MG Tab PO SCH (21:59)
[2016-11-01] MEDS: Montelukast 10 MG Tab PO SCH (21:59)
[2016-11-01] MEDS: CRANBERRY PO SCH (22:05)
[2016-11-02] MEDS: LORazepam 1 MG Tab PO PRN (01:26)
[2016-11-02] MEDS: Zolpidem 5 MG Tab PO PRN (01:26)
[2016-11-02] MEDS: Omeprazole 20 MG Cap.CR PO SCH (06:10)
[2016-11-02] MEDS: Furosemide 20 MG Tab PO SCH (09:35)
[2016-11-02] MEDS: Polyethylene Glycol 3350 Powder 17 GM Packet PO SCH (09:35)
[2016-11-02] MEDS: Potassium Chloride 10 MEQ Tab.ER PO SCH ×2 (09:40→18:04)
[2016-11-02] MEDS: Gabapentin 300 MG Cap PO SCH ×3 (09:41→21:25)
[2016-11-02] MEDS: buPROPion 150 MG Tab.ER PO SCH (09:41)
[2016-11-02] MEDS: Iron Polysaccharides Complex 150 MG Cap PO SCH (09:41)
[2016-11-02] MEDS: Fluconazole 100 MG Tab PO SCH (09:41)
[2016-11-02] MEDS: Acetaminophen 500 MG Tab PO SCH ×2 (09:41→21:20)
[2016-11-02] MEDS: PROBIOTIC PO SCH ×2 (09:42→21:18)
[2016-11-02] MEDS: Calcium Carbonate/Vitamin D3 1250 MG-200 Unit Tab PO SCH (12:30)
[2016-11-02] MEDS: Menthol/Methyl Salicylate 85 GM Tube TOP PRN (12:31)
[2016-11-02] MEDS: Warfarin 2 MG Tab PO SCH (14:23)
[2016-11-02] MEDS: CRANBERRY PO SCH (21:18)
[2016-11-02] MEDS: Cyanocobalamin (Vitamin B12) 100 MCG Tab PO SCH (21:19)
[2016-11-02] MEDS: Donepezil 10 MG Tab PO SCH (21:24)
[2016-11-02] MEDS: Montelukast 10 MG Tab PO SCH (21:25)
[2016-11-02] MEDS: atorvaSTATin 10 MG Tab PO SCH (21:25)
[2016-11-02] MEDS: LORazepam 0.5 MG Tab PO PRN (21:26)
[2016-11-02] MEDS: oxyCODONE 5 MG Tab PO PRN (21:31)
[2016-11-03] MEDS: LORazepam 1 MG Tab PO PRN ×2 (00:40→22:47)
[2016-11-03] MEDS: Zolpidem 5 MG Tab PO PRN ×2 (00:41→22:47)
[2016-11-03] MEDS: Omeprazole 20 MG Cap.CR PO SCH (06:13)
[2016-11-03] MEDS: Potassium Chloride 10 MEQ Tab.ER PO SCH ×2 (08:16→17:31)
[2016-11-03] MEDS: Gabapentin 300 MG Cap PO SCH ×3 (08:16→22:45)
[2016-11-03] MEDS: Furosemide 20 MG Tab PO SCH (08:16)
[2016-11-03] MEDS: Fluconazole 100 MG Tab PO SCH (08:16)
[2016-11-03] MEDS: Iron Polysaccharides Complex 150 MG Cap PO SCH (08:17)
[2016-11-03] MEDS: buPROPion 150 MG Tab.ER PO SCH (08:17)
[2016-11-03] MEDS: Acetaminophen 500 MG Tab PO SCH ×2 (08:17→22:44)
[2016-11-03] MEDS: PROBIOTIC PO SCH ×2 (08:18→22:43)
[2016-11-03] MEDS: Polyethylene Glycol 3350 Powder 17 GM Packet PO SCH (08:19)
[2016-11-03] MEDS: Ondansetron 4 MG Tab.DIS PO PRN (08:26)
[2016-11-03] MEDS: Calcium Carbonate/Vitamin D3 1250 MG-200 Unit Tab PO SCH (13:00)
[2016-11-03] MEDS: ESTROGENS CONJUGATED VAG SCH (22:42)
[2016-11-03] MEDS: CRANBERRY PO SCH (22:43)
[2016-11-03] MEDS: Cyanocobalamin (Vitamin B12) 100 MCG Tab PO SCH (22:46)
[2016-11-03] MEDS: Montelukast 10 MG Tab PO SCH (22:46)
[2016-11-03] MEDS: Donepezil 10 MG Tab PO SCH (22:48)
[2016-11-03] MEDS: atorvaSTATin 10 MG Tab PO SCH (22:48)
[2016-11-03] MEDS: Docusate Sodium 100 MG Cap PO PRN (22:58)
--- NOTE | 2016-11-04 01:16 | PN ---
DATE: 11/03/2016 Scarlett returned to [place] today to see Dr. Patterson of Plastic Surgery. He has lifted her restrictions on weightbearing and she can now ambulate without restriction. He gave ongoing directions for wound care. The thigh dressing at the donor site should be changed every 48 hours with a layer of Xeroform, ABD, and then secured. The lower leg should also have wound dressing changes every 48 hours with Kerlix and an Warner wrap. She can now shower with the dressings off. The area should be patted dry and the dressings replaced. From the point of view of wound care, he feels she could go home. At the minimum, she should be able to get up to do her ADLs and get to the bathroom and back. He will see her back in followup in 4 weeks. Tomorrow, we will have Physical and Occupational Therapy re-evaluate her to see how she does with ambulation. She herself is eager to be discharged to home and this will be decided tomorrow. No other changes are made today. [facility] /[id number] MTDD
--- NOTE | 2016-11-04 01:19 | PN ---
DATE: 11/01/2016 SUBJECTIVE: Mrs. Hoskins is an 81-year-old lady, who is in swing bed following treatment of an ischemic ulceration on the right lower leg, sustained as a complication of recent hip surgery. She had undergone debridement and placement of a wound VAC and when leg improved, she underwent skin grafting with donor site from the right thigh to the right lower leg. She has been doing well. Daily wound care continues. She is nonweightbearing at this time per the plastic surgeon's orders. She continues on her usual home medications. Review of her clinical data shows good oral intake. She is voiding and moving her bowels. She is tolerating her diet. Vital signs have been stable and she has remained afebrile. She is on chronic Coumadin anticoagulation and INRs have been therapeutic. Coumadin is being dosed by pharmacy. She is somewhat anemic and her hemoglobin and hematocrit have been followed at the time of admission. On October 04, hemoglobin and hematocrit were 8.4 and 27, and these have improved to 9.7 and 30.8 today. PHYSICAL EXAMINATION: General: She is seated comfortably in her recliner. The nurses have removed the dressings from the leg so the wounds can be inspected and re-dressed. She voices no new concerns or complaints. Vital Signs: Blood pressure 116/55, pulse 72, respiratory rate 20, oxygen saturation 99% on room air, and she is afebrile. HEENT: Unremarkable. ENT was clear. Chest: Show clear but diminished bilateral breath sounds. Heart: Showed regular rate and rhythm. Abdomen: Obese, soft, and benign. Extremities: Examination of the extremities show compression dressing on the left lower extremity. The right leg was examined. The donor site on the right thigh looks well healed. For the most part it is covered in Xeroform which was not removed as it was adherent to the graft site. The lower anterior medial aspect shows zac to be in place around the periphery. There is no sign of infection or dehiscence of the graft. There is no surrounding redness or cellulitis. There is no drainage. ASSESSMENT AND PLAN: We will continue with the present management with wound care as per Plastic Surgery. She is due to see the plastic surgeon on , for re-evaluation with possible management changes at that time. No other changes are made today. [facility] /[id number] MTDD
[2016-11-04] MEDS: Omeprazole 20 MG Cap.CR PO SCH (07:39)
[2016-11-04] MEDS: Acetaminophen 500 MG Tab PO SCH ×2 (08:29→22:11)
[2016-11-04] MEDS: Polyethylene Glycol 3350 Powder 17 GM Packet PO SCH (08:29)
[2016-11-04] MEDS: Iron Polysaccharides Complex 150 MG Cap PO SCH (08:30)
[2016-11-04] MEDS: Gabapentin 300 MG Cap PO SCH ×3 (08:30→22:11)
[2016-11-04] MEDS: PROBIOTIC PO SCH ×2 (08:30→22:13)
[2016-11-04] MEDS: Potassium Chloride 10 MEQ Tab.ER PO SCH ×2 (08:30→18:33)
[2016-11-04] MEDS: Furosemide 20 MG Tab PO SCH (08:30)
[2016-11-04] MEDS: buPROPion 150 MG Tab.ER PO SCH (08:30)
[2016-11-04] MEDS: Calcium Carbonate/Vitamin D3 1250 MG-200 Unit Tab PO SCH ×2 (15:23→15:25)
[2016-11-04] MEDS: atorvaSTATin 10 MG Tab PO SCH (22:09)
[2016-11-04] MEDS: Cyanocobalamin (Vitamin B12) 100 MCG Tab PO SCH (22:10)
[2016-11-04] MEDS: Donepezil 10 MG Tab PO SCH (22:10)
[2016-11-04] MEDS: Montelukast 10 MG Tab PO SCH (22:10)
[2016-11-04] MEDS: CRANBERRY PO SCH (22:13)
[2016-11-04] MEDS: Zolpidem 5 MG Tab PO PRN (23:33)
[2016-11-04] MEDS: LORazepam 1 MG Tab PO PRN (23:33)
[2016-11-05] MEDS: LORazepam 0.5 MG Tab PO PRN ×2 (04:15→10:13)
[2016-11-05] MEDS: Omeprazole 20 MG Cap.CR PO SCH (06:56)
[2016-11-05] MEDS: Potassium Chloride 10 MEQ Tab.ER PO SCH ×3 (09:41→19:59)
[2016-11-05] MEDS: Iron Polysaccharides Complex 150 MG Cap PO SCH (09:42)
[2016-11-05] MEDS: PROBIOTIC PO SCH ×2 (09:42→22:36)
[2016-11-05] MEDS: Furosemide 20 MG Tab PO SCH (09:42)
[2016-11-05] MEDS: Gabapentin 300 MG Cap PO SCH ×3 (09:43→22:33)
[2016-11-05] MEDS: Acetaminophen 500 MG Tab PO SCH ×2 (09:43→22:36)
[2016-11-05] MEDS: Polyethylene Glycol 3350 Powder 17 GM Packet PO SCH (09:43)
[2016-11-05] MEDS: buPROPion 150 MG Tab.ER PO SCH (09:44)
[2016-11-05] MEDS ORDERED: Warfarin 2 MG Tab PO ONE (14:00)
[2016-11-05] MEDS: Calcium Carbonate/Vitamin D3 1250 MG-200 Unit Tab PO SCH (16:43)
[2016-11-05] MEDS: Cyanocobalamin (Vitamin B12) 100 MCG Tab PO SCH (22:32)
[2016-11-05] MEDS: Donepezil 10 MG Tab PO SCH (22:33)
[2016-11-05] MEDS: atorvaSTATin 10 MG Tab PO SCH (22:34)
[2016-11-05] MEDS: CRANBERRY PO SCH (22:35)
[2016-11-05] MEDS: Montelukast 10 MG Tab PO SCH (22:38)
[2016-11-05] MEDS: LORazepam 1 MG Tab PO PRN (23:59)
[2016-11-05] MEDS: Zolpidem 5 MG Tab PO PRN (23:59)
[2016-11-06] MEDS: LORazepam 0.5 MG Tab PO PRN (03:00)
[2016-11-06] MEDS: Omeprazole 20 MG Cap.CR PO SCH (05:37)
[2016-11-06] MEDS: Gabapentin 300 MG Cap PO SCH ×3 (09:30→20:51)
[2016-11-06] MEDS: buPROPion 150 MG Tab.ER PO SCH (09:32)
[2016-11-06] MEDS: Potassium Chloride 10 MEQ Tab.ER PO SCH ×2 (09:33→17:23)
[2016-11-06] MEDS: Iron Polysaccharides Complex 150 MG Cap PO SCH (09:33)
[2016-11-06] MEDS: Acetaminophen 500 MG Tab PO SCH ×2 (09:33→20:48)
[2016-11-06] MEDS: Furosemide 20 MG Tab PO SCH (09:34)
[2016-11-06] MEDS: Polyethylene Glycol 3350 Powder 17 GM Packet PO SCH (09:39)
[2016-11-06] MEDS: Ondansetron 4 MG Tab.DIS PO PRN ×2 (09:39→23:31)
[2016-11-06] MEDS: oxyCODONE 5 MG Tab PO PRN ×2 (09:40→20:54)
[2016-11-06] MEDS: PROBIOTIC PO SCH ×2 (09:41→20:52)
[2016-11-06] MEDS: Calcium Carbonate/Vitamin D3 1250 MG-200 Unit Tab PO SCH (13:20)
[2016-11-06] MEDS: atorvaSTATin 10 MG Tab PO SCH (20:47)
[2016-11-06] MEDS: Cyanocobalamin (Vitamin B12) 100 MCG Tab PO SCH (20:51)
[2016-11-06] MEDS: Montelukast 10 MG Tab PO SCH (20:51)
[2016-11-06] MEDS: CRANBERRY PO SCH (20:52)
[2016-11-06] MEDS: Donepezil 10 MG Tab PO SCH (20:52)
[2016-11-06] MEDS: Zolpidem 5 MG Tab PO PRN (22:56)
[2016-11-06] MEDS: LORazepam 1 MG Tab PO PRN (22:56)
[2016-11-07] MEDS: LORazepam 0.5 MG Tab PO PRN ×2 (02:29→10:02)
[2016-11-07] MEDS: Omeprazole 20 MG Cap.CR PO SCH (06:09)
[2016-11-07] MEDS: Iron Polysaccharides Complex 150 MG Cap PO SCH (09:45)
[2016-11-07] MEDS: Furosemide 20 MG Tab PO SCH (09:46)
[2016-11-07] MEDS: Potassium Chloride 10 MEQ Tab.ER PO SCH ×2 (09:46→18:08)
[2016-11-07] MEDS: Acetaminophen 500 MG Tab PO SCH ×2 (09:46→21:31)
[2016-11-07] MEDS: Gabapentin 300 MG Cap PO SCH ×3 (09:47→21:29)
[2016-11-07] MEDS: buPROPion 150 MG Tab.ER PO SCH (09:47)
[2016-11-07] MEDS: PROBIOTIC PO SCH ×2 (09:47→21:34)
[2016-11-07] MEDS: Polyethylene Glycol 3350 Powder 17 GM Packet PO SCH (09:48)
--- NOTE | 2016-11-07 10:23 | PCM.PN ---
- General Info Date of Service: 11/07/16 Admission Dx/Problem (Free Text): Right foot wound, status post debridement on 09/26/16, skin graft placement Subjective Update: pain is moderate, wore with dressing change, controlled with meds. She denies fever, chills, nausea, vomiting, chest pain, shortness breath, abdominal pain, black stools, pencil, diarrhea, urine symptoms, any others complaints or concerns. - Patient Data Vitals - most recent: Last Vital Signs Temp 36.9 C 11/07/16 07:44 Pulse 62 11/07/16 07:44 Resp 20 11/07/16 07:44 BP 114/59 L 11/07/16 07:44 Pulse Ox 98 11/07/16 07:44 Weight - most recent: 84.459 kg I&O - last 24 hours: Intake & Output 11/06/16 11/07/16 11/07/16 22:59 06:59 14:59 Intake Total 360 440 Balance 360 440 Lab Results last 24 hrs: Laboratory Results - last 24 hr 11/07/16 11/07/16 Range/Units 06:00 06:00 Hgb 9.6 L (12.0-16.0) g/dL Hct 30.8 L (37.0-47.0) % PT 24.7 H (9.0-12.0) SEC INR 2.5 H (0.9-1.2) Med Orders - Current: Current Medications Acetaminophen (Tylenol Extra Strength) 1,000 mg PO BID ON LICENSE OF [facility] Last Admin: 11/07/16 09:46 Dose: 1,000 mg Atorvastatin Calcium (Lipitor) 20 mg PO BEDTIME ON LICENSE OF [facility] Last Admin: 11/06/16 20:47 Dose: 20 mg Bupropion HCl (Wellbutrin Xl) 150 mg PO DAILY ON LICENSE OF [facility] Last Admin: 11/07/16 09:47 Dose: 150 mg Calcium Carbonate (Calcium Carbonate/Vitamin D 1250 Mg-200 Unit) 1 tab PO DAILY @1200 ON LICENSE OF [facility] Last Admin: 11/06/16 13:20 Dose: 1 tab Cyanocobalamin (Vitamin B12) 500 mcg PO BEDTIME ON LICENSE OF [facility] Last Admin: 11/06/16 20:51 Dose: 500 mcg Docusate Sodium (Colace) 200 mg PO BID PRN PRN Reason: Constipation Last Admin: 11/03/16 22:58 Dose: 200 mg Donepezil HCl (Aricept) 10 mg PO BEDTIME ON LICENSE OF [facility] Last Admin: 11/06/16 20:52 Dose: 10 mg Furosemide (Lasix) 20 mg PO DAILY ON LICENSE OF [facility] Last Admin: 11/07/16 09:46 Dose: 20 mg Gabapentin (Neurontin) 300 mg PO TID ON LICENSE OF [facility] Last Admin: 11/07/16 09:47 Dose: 300 mg Lorazepam (Ativan) 0.5 mg PO Q6H PRN PRN Reason: Anxiety Last Admin: 11/07/16 10:02 Dose: 0.5 mg Lorazepam (Ativan) 1 mg PO BEDTIME PRN PRN Reason: insomnia Last Admin: 11/06/16 22:56 Dose: 1 mg Methyl Salicylate (Icy Hot Cream) 0 gm TOP QID PRN PRN Reason: Other Last Admin: 11/02/16 12:31 Dose: 1 applic Montelukast Sodium (Singulair) 10 mg PO BEDTIME ON LICENSE OF [facility] Last Admin: 11/06/16 20:51 Dose: 10 mg Patients Own Med [ (Probiotic]) 1 each PO BID ON LICENSE OF [facility] Last Admin: 11/07/16 09:47 Dose: 1 each Patients Own Med[ (Cranberry] Tabs) 1 tab PO BEDTIME ON LICENSE OF [facility] Last Admin: 11/06/16 20:52 Dose: 1 tab Estrogens, Conjugated [Premarin ] Vaginal Cap Own Med 0 cap VAG MoTh@2100 ON LICENSE OF [facility] Last Admin: 11/03/16 22:42 Dose: 1 cap Omeprazole (Omeprazole) 20 mg PO ACBRK ON LICENSE OF [facility] Last Admin: 11/07/16 06:09 Dose: 20 mg Ondansetron HCl (Zofran Odt) 4 mg PO Q6H PRN PRN Reason: nausea, able to take PO Last Admin: 11/06/16 23:31 Dose: 4 mg Oxycodone HCl (Oxycodone) 10 mg PO BEDTIME PRN PRN Reason: Pain Last Admin: 10/23/16 22:49 Dose: 10 mg Oxycodone HCl (Oxycodone) 5 mg PO Q6H PRN PRN Reason: Pain Last Admin: 11/06/16 20:54 Dose: 5 mg Phenyleph/Shark Oil/Min Oil/Petrol (Preparation H Oint) 0 gm RECTAL BID PRN PRN Reason: rectal dyscomfort Last Admin: 10/30/16 19:25 Dose: 1 applic Polyethylene Glycol (Miralax) 17 gm PO DAILY ON LICENSE OF [facility] Last Admin: 11/07/16 09:48 Dose: Not Given Polysaccharide Iron Complex (Ferrex 150) 150 mg PO DAILY ON LICENSE OF [facility] Last Admin: 11/07/16 09:45 Dose: 150 mg Potassium Chloride (Klor-Con 10) 10 meq PO BIDMEALS ON LICENSE OF [facility] Last Admin: 11/07/16 09:46 Dose: 10 meq Warfarin Sodium (Pharmacy To Dose - Warfarin) 1 dose .XX ASDIRECTED ON LICENSE OF [facility] Zolpidem Tartrate (Ambien) 5 mg PO BEDTIME PRN PRN Reason: Sleep Last Admin: 11/06/16 22:56 Dose: 5 mg Discontinued Medications Calcium Carbonate (Calcium Carbonate/Vitamin D 1250 Mg-200 Unit) 1 tab PO DAILY ON LICENSE OF [facility] Last Admin: 10/10/16 09:34 Dose: Not Given Docusate Sodium (Colace) 100 mg PO BID PRN PRN Reason: Constipation Doxycycline Hyclate (Vibramycin) 100 mg PO BID ON LICENSE OF [facility] Stop: 10/20/16 09:00 Last Admin: 10/20/16 08:11 Dose: 100 mg Fluconazole (Diflucan) 200 mg PO DAILY ON LICENSE OF [facility] Last Admin: 11/03/16 08:16 Dose: 200 mg Gabapentin (Neurontin) 100 mg PO TID ON LICENSE OF [facility] Lorazepam (Ativan) 1 mg PO BEDTIME PRN PRN Reason: Anxiety Lorazepam (Ativan) 0.5 mg PO BEDTIME PRN PRN Reason: Anxiety Last Admin: 10/03/16 23:24 Dose: 0.5 mg Nystatin (Nystop) 0 gm TOP BID ON LICENSE OF [facility] Last Admin: 10/21/16 08:23 Dose: 1 applic Oxycodone HCl (Oxycodone) 10 mg PO Q4H PRN PRN Reason: Pain Oxycodone HCl (Oxycodone) 5 mg PO Q4H PRN PRN Reason: Pain Last Admin: 10/09/16 22:55 Dose: 5 mg Oxycodone HCl (Oxycodone) 5 mg PO ONETIME ONE Stop: 10/02/16 20:04 Last Admin: 10/02/16 20:25 Dose: 5 mg Oxycodone HCl (Oxycodone) 10 mg PO Q6H PRN PRN Reason: Pain Last Admin: 10/13/16 09:56 Dose: 5 mg Polyethylene Glycol (Miralax) 17 gm PO DAILY PRN PRN Reason: Constipation Last Admin: 10/06/16 09:09 Dose: 17 gm Warfarin Sodium (Coumadin) 4 mg PO ONETIME ONE Stop: 09/29/16 17:01 Last Admin: 09/29/16 20:04 Dose: Not Given Warfarin Sodium (Coumadin) 5 mg PO ONETIME ONE Stop: 09/30/16 14:01 Last Admin: 09/30/16 13:57 Dose: 5 mg Warfarin Sodium (Coumadin) 5 mg PO ONETIME ONE Stop: 10/01/16 14:01 Last Admin: 10/01/16 14:59 Dose: 5 mg Warfarin Sodium (Coumadin) 5 mg PO ONETIME ONE Stop: 10/02/16 14:01 Last Admin: 10/02/16 14:02 Dose: 5 mg Warfarin Sodium (Coumadin) 4 mg PO ONETIME ONE Stop: 10/03/16 14:01 Last Admin: 10/03/16 13:32 Dose: 4 mg Warfarin Sodium (Coumadin) 5 mg PO ONETIME ONE Stop: 10/04/16 14:01 Last Admin: 10/04/16 14:51 Dose: 5 mg Warfarin Sodium (Coumadin) 5 mg PO ONETIME ONE Stop: 10/05/16 14:01 Last Admin: 10/05/16 14:27 Dose: 5 mg Warfarin Sodium (Coumadin) 4 mg PO ONETIME ONE Stop: 10/06/16 14:01 Last Admin: 10/06/16 14:39 Dose: 4 mg Warfarin Sodium (Coumadin) 5 mg PO ONETIME ONE Stop: 10/11/16 14:16 Last Admin: 10/11/16 14:30 Dose: 5 mg Warfarin Sodium (Coumadin) 7.5 mg PO ONETIME ONE Stop: 10/12/16 14:01 Last Admin: 10/12/16 13:50 Dose: 7.5 mg Warfarin Sodium (Coumadin) 7.5 mg PO ONETIME ONE Stop: 10/13/16 14:01 Last Admin: 10/13/16 14:03 Dose: 7.5 mg Warfarin Sodium (Coumadin) 7.5 mg PO ONETIME ONE Stop: 10/14/16 14:01 Last Admin: 10/14/16 14:16 Dose: 7.5 mg Warfarin Sodium (Coumadin) 5 mg PO ONETIME ONE Stop: 10/15/16 14:01 Last Admin: 10/15/16 13:50 Dose: 5 mg Warfarin Sodium (Coumadin) 2 mg PO ONETIME ONE Stop: 10/16/16 14:01 Last Admin: 10/16/16 14:07 Dose: 2 mg Warfarin Sodium (Coumadin) 2 mg PO DAILY@1400 ON LICENSE OF [facility] Stop: 10/17/16 14:01 Last Admin: 10/17/16 15:28 Dose: 2 mg Warfarin Sodium (Coumadin) 4 mg PO ONETIME ONE Stop: 10/18/16 14:01 Last Admin: 10/18/16 15:03 Dose: 4 mg Warfarin Sodium (Coumadin) 4 mg PO ONETIME ONE Stop: 10/19/16 14:01 Last Admin: 10/19/16 13:36 Dose: 4 mg Warfarin Sodium (Coumadin) 4 mg PO ONETIME ONE Stop: 10/20/16 14:01 Last Admin: 10/20/16 13:36 Dose: 4 mg Warfarin Sodium (Coumadin) 4 mg PO DAILY@1400 ON LICENSE OF [facility] Stop: 10/21/16 14:01 Last Admin: 10/21/16 14:34 Dose: 4 mg Warfarin Sodium (Coumadin) 4 mg PO ONETIME ONE Stop: 10/22/16 14:01 Last Admin: 10/22/16 13:21 Dose: 4 mg Warfarin Sodium (Coumadin) 4 mg PO DAILY@1400 ON LICENSE OF [facility] Last Admin: 10/23/16 13:27 Dose: 4 mg Warfarin Sodium (Coumadin) 2 mg PO ONETIME ONE Stop: 10/26/16 14:01 Last Admin: 10/26/16 13:33 Dose: 2 mg Warfarin Sodium (Coumadin) 2 mg PO ONETIME ONE Stop: 10/27/16 14:01 Last Admin: 10/27/16 13:51 Dose: 2 mg Warfarin Sodium (Coumadin) 2 mg PO DAILY@1400 ON LICENSE OF [facility] Stop: 10/29/16 14:01 Last Admin: 10/29/16 13:27 Dose: 2 mg Warfarin Sodium (Coumadin) 4 mg PO ONETIME ONE Stop: 10/30/16 14:01 Last Admin: 10/30/16 14:14 Dose: 4 mg Warfarin Sodium (Coumadin) 4 mg PO ONETIME ONE Stop: 10/31/16 14:01 Last Admin: 10/31/16 14:17 Dose: 4 mg Warfarin Sodium (Coumadin) 4 mg PO DAILY@1400 STEVE Stop: 11/02/16 14:01 Last Admin: 11/02/16 14:23 Dose: 4 mg Warfarin Sodium (Coumadin) 2 mg PO ONETIME ONE Stop: 11/05/16 14:01 Last Admin: 11/05/16 16:49 Dose: 2 mg Warfarin Sodium (Coumadin) 3 mg PO ONETIME ONE Stop: 11/06/16 14:01 Last Admin: 11/06/16 14:35 Dose: 3 mg - Exam General: alert, oriented Neck: supple Lungs: Clear to auscultation, Normal respiratory effort Cardiovascular: Regular Rate Abdomen: bowel sounds present, soft, no tenderness, no distension Extremities: no edema Skin: other (left leg lower and upper wound with dressing) - Problem List & Annotations (1) Leg wound, right SNOMED Code(s): 794513028, 058231312 Code(s): S81.801A - UNSPECIFIED OPEN WOUND, RIGHT LOWER LEG, INITIAL ENCOUNTER Status: Acute Current Visit: Yes (2) Afib SNOMED Code(s): 44418062 Code(s): I48.91 - UNSPECIFIED ATRIAL FIBRILLATION Status: Acute Current Visit: Yes (3) Chronic diastolic (congestive) heart failure SNOMED Code(s): 298667324, 858814829 Code(s): I50.32 - CHRONIC DIASTOLIC (CONGESTIVE) HEART FAILURE Status: Acute Current Visit: Yes - Problem List Review Problem List Initiated/Reviewed/Updated: Yes - My Orders Last 24 Hours: My Active Orders 11/08/16 05:11 INR,PT,PROTHROMBIN TIME [COAG] DAILY 11/08/16 05:15 BASIC METABOLIC PANEL,BMP [CHEM] AM CBC WITH AUTO DIFF [HEME] AM 11/09/16 05:11 INR,PT,PROTHROMBIN TIME [COAG] DAILY 11/10/16 05:11 INR,PT,PROTHROMBIN TIME [COAG] DAILY - Plan Plan:: Right leg wound status post debridement and autograft on 09/26/16 This was likely due to venous stasis blister and injury. Continued follow-up with plastic surgery continue wound care by plastic surgery every other day Atrial fibrillation. Continue Coumadin thrombosis (DVT) prophylaxis will be with full-dose Coumadin. Gastroesophageal reflux disease. Continue Protonix. Chronic diastolic CHF controlled Continue current treatment Anxity Ativan p.r.n. Anemia subacute. Suspect from blood loss in surgery. recheck Hgb in AM History of CAD No hx of IA or stents. Continue home statin. Not on aspirin/plavix - on Coumadin. she is being followed by Dr. Chavez HTN controlled Without medications Will watch clinically Depression Continue Wellbutrin Dementia Continue Aricept Neuropathy Continue gabapentin dvt prophylaxis full dose anticoagulation with coumadin
[2016-11-07] MEDS: Calcium Carbonate/Vitamin D3 1250 MG-200 Unit Tab PO SCH (13:41)
[2016-11-07] MEDS: Ondansetron 4 MG Tab.DIS PO PRN (18:09)
[2016-11-07] MEDS: Donepezil 10 MG Tab PO SCH (21:28)
[2016-11-07] MEDS: atorvaSTATin 10 MG Tab PO SCH (21:29)
[2016-11-07] MEDS: Cyanocobalamin (Vitamin B12) 100 MCG Tab PO SCH (21:30)
[2016-11-07] MEDS: Montelukast 10 MG Tab PO SCH (21:31)
[2016-11-07] MEDS: CRANBERRY PO SCH (21:33)
[2016-11-07] MEDS: oxyCODONE 5 MG Tab PO PRN (21:35)
[2016-11-07] MEDS: ESTROGENS CONJUGATED VAG SCH (21:39)
[2016-11-07] MEDS: Zolpidem 5 MG Tab PO PRN (22:39)
[2016-11-07] MEDS: LORazepam 1 MG Tab PO PRN (22:40)
[2016-11-08] MEDS: LORazepam 0.5 MG Tab PO PRN (02:56)
[2016-11-08] MEDS: Omeprazole 20 MG Cap.CR PO SCH (06:45)
[2016-11-08 08:30] LABS: CHLORIDE,CL 104 mmol/L (101-111); SODIUM,NA 141 mmol/L (135-145)
[2016-11-08] MEDS: Acetaminophen 500 MG Tab PO SCH ×2 (09:29→20:47)
[2016-11-08] MEDS: buPROPion 150 MG Tab.ER PO SCH (09:30)
[2016-11-08] MEDS: Iron Polysaccharides Complex 150 MG Cap PO SCH (09:30)
[2016-11-08] MEDS: Gabapentin 300 MG Cap PO SCH ×3 (09:30→20:46)
[2016-11-08] MEDS: Furosemide 20 MG Tab PO SCH (09:30)
[2016-11-08] MEDS: Polyethylene Glycol 3350 Powder 17 GM Packet PO SCH ×2 (09:30→12:28)
[2016-11-08] MEDS: Potassium Chloride 10 MEQ Tab.ER PO SCH ×2 (09:30→17:24)
[2016-11-08] MEDS: PROBIOTIC PO SCH ×2 (09:31→20:43)
[2016-11-08] MEDS: Calcium Carbonate/Vitamin D3 1250 MG-200 Unit Tab PO SCH ×2 (10:59→12:29)
[2016-11-08] MEDS: Donepezil 10 MG Tab PO SCH (20:43)
[2016-11-08] MEDS: CRANBERRY PO SCH (20:44)
[2016-11-08] MEDS: atorvaSTATin 10 MG Tab PO SCH (20:45)
[2016-11-08] MEDS: Montelukast 10 MG Tab PO SCH (20:46)
[2016-11-08] MEDS: oxyCODONE 5 MG Tab PO PRN (20:48)
[2016-11-08] MEDS: Cyanocobalamin (Vitamin B12) 100 MCG Tab PO SCH (20:49)
[2016-11-08] MEDS: Docusate Sodium 100 MG Cap PO PRN (23:14)
[2016-11-08] MEDS: Zolpidem 5 MG Tab PO PRN (23:14)
[2016-11-08] MEDS: LORazepam 1 MG Tab PO PRN (23:14)
[2016-11-09] MEDS: LORazepam 0.5 MG Tab PO PRN ×2 (02:24→07:41)
[2016-11-09] MEDS: Omeprazole 20 MG Cap.CR PO SCH (06:14)
[2016-11-09] MEDS: Ondansetron 4 MG Tab.DIS PO PRN ×2 (07:38→13:51)
[2016-11-09 08:18] VITALS: BP 120/58
[2016-11-09] MEDS: Acetaminophen 500 MG Tab PO SCH (08:56)
[2016-11-09] MEDS: buPROPion 150 MG Tab.ER PO SCH (08:56)
[2016-11-09] MEDS: Gabapentin 300 MG Cap PO SCH ×2 (08:57→13:51)
[2016-11-09] MEDS: Iron Polysaccharides Complex 150 MG Cap PO SCH (08:57)
[2016-11-09] MEDS: Furosemide 20 MG Tab PO SCH (08:57)
[2016-11-09] MEDS: Potassium Chloride 10 MEQ Tab.ER PO SCH (08:57)
[2016-11-09] MEDS: Polyethylene Glycol 3350 Powder 17 GM Packet PO SCH (08:59)
[2016-11-09] MEDS: PROBIOTIC PO SCH (09:04)
--- NOTE | 2016-11-09 12:14 | PCM.DCSUM1 ---
Discharge Summary - Hospital Course Free Text/Narrative:: underwent r. hip surgery noted to have r. leg non healing ulcer was admitted to swing bed for wound care and pt/ot Right leg wound status post debridement and autograft on 09/26/16 This was likely due to venous stasis blister and injury. Continued follow-up with plastic surgery continue wound care changes every other day will set up home care for help with dressing changes Atrial fibrillation. Continue Coumadin thrombosis (DVT) prophylaxis will be with full-dose Coumadin. Gastroesophageal reflux disease. Continue Protonix. Chronic diastolic CHF controlled Anxiety Ativan p.r.n. Anemia subacute. Suspect from blood loss in surgery. stable History of CAD No hx of VT or stents. Continue home statin. Not on aspirin/plavix - on Coumadin. she is being followed by Dr. Chavez HTN controlled Without medications Depression Continue Wellbutrin Dementia Continue Aricept Neuropathy Continue gabapentin - Discharge Data Discharge Date: 11/09/16 Discharge Disposition: Home, Self-Care 01 Condition: Good - Discharge Diagnosis/Problem(s) (1) Leg wound, right SNOMED Code(s): 190252855, [id number] ICD Code: S81.801A - UNSPECIFIED OPEN WOUND, RIGHT LOWER LEG, INITIAL ENCOUNTER Status: Acute Current Visit: Yes (2) Afib SNOMED Code(s): 43248485 ICD Code: I48.91 - UNSPECIFIED ATRIAL FIBRILLATION Status: Acute Current Visit: Yes (3) Chronic diastolic (congestive) heart failure SNOMED Code(s): 080850542, [id number] ICD Code: I50.32 - CHRONIC DIASTOLIC (CONGESTIVE) HEART FAILURE Status: Acute Current Visit: Yes - Patient Summary/Data Consults: Consultations 09/29/16 15:53 OT Evaluation and Treatment [CONS] Routine PT Evaluation and Treatment [CONS] Routine 09/30/16 18:03 OT Evaluation and Treatment [CONS] Routine 11/03/16 18:04 PT Evaluation and Treatment [CONS] Routine - Patient Instructions Diet: Heart Healthy Diet Activity: As Tolerated - Discharge Plan Prescriptions/Med Rec: Furosemide [Lasix] 20 mg PO DAILY #30 tablet Home Medications: Home Meds Donepezil [Aricept] 10 mg PO BEDTIME 04/16/13 [History] Gabapentin [Neurontin] 300 mg PO TID 04/16/13 [History] Montelukast [Singulair] 10 mg PO BEDTIME 04/16/13 [History] Omeprazole 20 mg PO DAILY 04/16/13 [History] Potassium Chloride [Klor-Con 10] 10 meq PO BID 04/16/13 [History] Warfarin [Coumadin] 4 mg PO DAILY 04/16/13 [History] atorvaSTATin [Lipitor] 20 mg PO BEDTIME 04/16/13 [History] buPROPion [buPROPion XL] 150 mg PO DAILY 04/16/13 [History] Acetaminophen [Tylenol Extra Strength] 1,000 mg PO BID 09/12/16 [History] Ascorbate Calcium [Vitamin C] 500 mg PO DAILY 09/12/16 [History] Cranberry Con&Fr/B.Coag/C/Calc [Cranberry-Probiotic] 1 tab PO BEDTIME 09/12/16 [ History] Cyanocobalamin (Vitamin B-12) [Vitamin B-12] 500 mg PO BEDTIME 09/12/16 [History ] Estrogens, Conjugated [Premarin Vaginal Crm] 1 cap VAG .MO.TH 09/12/16 [History] L.acidoph,Paracasei, B.lactis [Probiotic] 1 each PO BID 09/12/16 [History] LORazepam [Ativan] 1 mg PO BEDTIME PRN 09/12/16 [History] oxyCODONE 5 mg PO Q4H PRN 09/12/16 [History] Calcium Carbonate/Vitamin D3 [Calcium 500-Vit D3 200 Tablet] 1 tab PO DAILY [History] Furosemide [Lasix] 20 mg PO DAILY #30 tablet 11/09/16 [Rx] Referrals: PCP,Unknown [Ordering Only Provider] - (in 3-4 days with INR) - Discharge Summary/Plan Comment DC Time >30 min.: No - General Info Functional Status: Reports: pain controlled - Review of Systems General: Reports: Weakness. Denies: Fever Pulmonary: Denies: shortness of breath Cardiovascular: Denies: Chest Pain Gastrointestinal: Denies: Abdominal pain - Patient Data Vitals - Most Recent: Last Vital Signs Temp 37.1 C 11/09/16 08:17 Pulse 63 11/09/16 08:17 Resp 20 11/09/16 08:17 BP 120/58 L 11/09/16 08:17 Pulse Ox 94 L 11/09/16 08:17 Weight - Most Recent: 86.001 kg I&O - Last 24 hours: Intake & Output 11/08/16 11/09/16 11/09/16 22:59 06:59 14:59 Intake Total 130 550 365 Balance 130 550 365 Lab Results - Last 24 hrs: Laboratory Results - last 24 hr 11/09/16 Range/Units 06:15 PT 24.6 H (9.0-12.0) SEC INR 2.4 H (0.9-1.2) Med Orders - Current: Current Medications Acetaminophen (Tylenol Extra Strength) 1,000 mg PO BID [facility] Last Admin: 11/09/16 08:56 Dose: 1,000 mg Atorvastatin Calcium (Lipitor) 20 mg PO BEDTIME [facility] Last Admin: 11/08/16 20:45 Dose: 20 mg Bupropion HCl (Wellbutrin Xl) 150 mg PO DAILY [facility] Last Admin: 11/09/16 08:56 Dose: 150 mg Calcium Carbonate (Calcium Carbonate/Vitamin D 1250 Mg-200 Unit) 1 tab PO DAILY @1200 [facility] Last Admin: 11/08/16 12:29 Dose: 1 tab Cyanocobalamin (Vitamin B12) 500 mcg PO BEDTIME [facility] Last Admin: 11/08/16 20:49 Dose: 500 mcg Docusate Sodium (Colace) 200 mg PO BID PRN PRN Reason: Constipation Last Admin: 11/08/16 23:14 Dose: 200 mg Donepezil HCl (Aricept) 10 mg PO BEDTIME [facility] Last Admin: 11/08/16 20:43 Dose: 10 mg Furosemide (Lasix) 20 mg PO DAILY [facility] Last Admin: 11/09/16 08:57 Dose: 20 mg Gabapentin (Neurontin) 300 mg PO TID [facility] Last Admin: 11/09/16 08:57 Dose: 300 mg Lorazepam (Ativan) 0.5 mg PO Q6H PRN PRN Reason: Anxiety Last Admin: 11/09/16 07:41 Dose: 0.5 mg Lorazepam (Ativan) 1 mg PO BEDTIME PRN PRN Reason: insomnia Last Admin: 11/08/16 23:14 Dose: 1 mg Methyl Salicylate (Icy Hot Cream) 0 gm TOP QID PRN PRN Reason: Other Last Admin: 11/02/16 12:31 Dose: 1 applic Montelukast Sodium (Singulair) 10 mg PO BEDTIME [facility] Last Admin: 11/08/16 20:46 Dose: 10 mg Patients Own Med [ (Probiotic]) 1 each PO BID [facility] Last Admin: 11/09/16 09:04 Dose: Not Given Patients Own Med[ (Cranberry] Tabs) 1 tab PO BEDTIME [facility] Last Admin: 11/08/16 20:44 Dose: 1 tab Estrogens, Conjugated [Premarin ] Vaginal Cap Own Med 0 cap VAG MoTh@2100 [facility] Last Admin: 11/07/16 21:39 Dose: 1 cap Omeprazole (Omeprazole) 20 mg PO ACBRK [facility] Last Admin: 11/09/16 06:14 Dose: 20 mg Ondansetron HCl (Zofran Odt) 4 mg PO Q6H PRN PRN Reason: nausea, able to take PO Last Admin: 11/09/16 07:38 Dose: 4 mg Oxycodone HCl (Oxycodone) 10 mg PO BEDTIME PRN PRN Reason: Pain Last Admin: 11/07/16 21:35 Dose: 10 mg Oxycodone HCl (Oxycodone) 5 mg PO Q6H PRN PRN Reason: Pain Last Admin: 11/08/16 20:48 Dose: 5 mg Phenyleph/Shark Oil/Min Oil/Petrol (Preparation H Oint) 0 gm RECTAL BID PRN PRN Reason: rectal dyscomfort Last Admin: 10/30/16 19:25 Dose: 1 applic Polyethylene Glycol (Miralax) 17 gm PO DAILY [facility] Last Admin: 11/09/16 08:59 Dose: 17 gm Polysaccharide Iron Complex (Ferrex 150) 150 mg PO DAILY [facility] Last Admin: 11/09/16 08:57 Dose: 150 mg Potassium Chloride (Klor-Con 10) 10 meq PO BIDMEALS [facility] Last Admin: 11/09/16 08:57 Dose: 10 meq Warfarin Sodium (Pharmacy To Dose - Warfarin) 1 dose .XX ASDIRECTED [facility] Zolpidem Tartrate (Ambien) 5 mg PO BEDTIME PRN PRN Reason: Sleep Last Admin: 11/08/16 23:14 Dose: 5 mg Discontinued Medications Calcium Carbonate (Calcium Carbonate/Vitamin D 1250 Mg-200 Unit) 1 tab PO DAILY [facility] Last Admin: 10/10/16 09:34 Dose: Not Given Docusate Sodium (Colace) 100 mg PO BID PRN PRN Reason: Constipation Doxycycline Hyclate (Vibramycin) 100 mg PO BID [facility] Stop: 10/20/16 09:00 Last Admin: 10/20/16 08:11 Dose: 100 mg Fluconazole (Diflucan) 200 mg PO DAILY [facility] Last Admin: 11/03/16 08:16 Dose: 200 mg Gabapentin (Neurontin) 100 mg PO TID [facility] Lorazepam (Ativan) 1 mg PO BEDTIME PRN PRN Reason: Anxiety Lorazepam (Ativan) 0.5 mg PO BEDTIME PRN PRN Reason: Anxiety Last Admin: 10/03/16 23:24 Dose: 0.5 mg Nystatin (Nystop) 0 gm TOP BID [facility] Last Admin: 10/21/16 08:23 Dose: 1 applic Oxycodone HCl (Oxycodone) 10 mg PO Q4H PRN PRN Reason: Pain Oxycodone HCl (Oxycodone) 5 mg PO Q4H PRN PRN Reason: Pain Last Admin: 10/09/16 22:55 Dose: 5 mg Oxycodone HCl (Oxycodone) 5 mg PO ONETIME ONE Stop: 10/02/16 20:04 Last Admin: 10/02/16 20:25 Dose: 5 mg Oxycodone HCl (Oxycodone) 10 mg PO Q6H PRN PRN Reason: Pain Last Admin: 10/13/16 09:56 Dose: 5 mg Polyethylene Glycol (Miralax) 17 gm PO DAILY PRN PRN Reason: Constipation Last Admin: 10/06/16 09:09 Dose: 17 gm Warfarin Sodium (Coumadin) 4 mg PO ONETIME ONE Stop: 09/29/16 17:01 Last Admin: 09/29/16 20:04 Dose: Not Given Warfarin Sodium (Coumadin) 5 mg PO ONETIME ONE Stop: 09/30/16 14:01 Last Admin: 09/30/16 13:57 Dose: 5 mg Warfarin Sodium (Coumadin) 5 mg PO ONETIME ONE Stop: 10/01/16 14:01 Last Admin: 10/01/16 14:59 Dose: 5 mg Warfarin Sodium (Coumadin) 5 mg PO ONETIME ONE Stop: 10/02/16 14:01 Last Admin: 10/02/16 14:02 Dose: 5 mg Warfarin Sodium (Coumadin) 4 mg PO ONETIME ONE Stop: 10/03/16 14:01 Last Admin: 10/03/16 13:32 Dose: 4 mg Warfarin Sodium (Coumadin) 5 mg PO ONETIME ONE Stop: 10/04/16 14:01 Last Admin: 10/04/16 14:51 Dose: 5 mg Warfarin Sodium (Coumadin) 5 mg PO ONETIME ONE Stop: 10/05/16 14:01 Last Admin: 10/05/16 14:27 Dose: 5 mg Warfarin Sodium (Coumadin) 4 mg PO ONETIME ONE Stop: 10/06/16 14:01 Last Admin: 10/06/16 14:39 Dose: 4 mg Warfarin Sodium (Coumadin) 5 mg PO ONETIME ONE Stop: 10/11/16 14:16 Last Admin: 10/11/16 14:30 Dose: 5 mg Warfarin Sodium (Coumadin) 7.5 mg PO ONETIME ONE Stop: 10/12/16 14:01 Last Admin: 10/12/16 13:50 Dose: 7.5 mg Warfarin Sodium (Coumadin) 7.5 mg PO ONETIME ONE Stop: 10/13/16 14:01 Last Admin: 10/13/16 14:03 Dose: 7.5 mg Warfarin Sodium (Coumadin) 7.5 mg PO ONETIME ONE Stop: 10/14/16 14:01 Last Admin: 10/14/16 14:16 Dose: 7.5 mg Warfarin Sodium (Coumadin) 5 mg PO ONETIME ONE Stop: 10/15/16 14:01 Last Admin: 10/15/16 13:50 Dose: 5 mg Warfarin Sodium (Coumadin) 2 mg PO ONETIME ONE Stop: 10/16/16 14:01 Last Admin: 10/16/16 14:07 Dose: 2 mg Warfarin Sodium (Coumadin) 2 mg PO DAILY@1400 [facility] Stop: 10/17/16 14:01 Last Admin: 10/17/16 15:28 Dose: 2 mg Warfarin Sodium (Coumadin) 4 mg PO ONETIME ONE Stop: 10/18/16 14:01 Last Admin: 10/18/16 15:03 Dose: 4 mg Warfarin Sodium (Coumadin) 4 mg PO ONETIME ONE Stop: 10/19/16 14:01 Last Admin: 10/19/16 13:36 Dose: 4 mg Warfarin Sodium (Coumadin) 4 mg PO ONETIME ONE Stop: 10/20/16 14:01 Last Admin: 10/20/16 13:36 Dose: 4 mg Warfarin Sodium (Coumadin) 4 mg PO DAILY@1400 [facility] Stop: 10/21/16 14:01 Last Admin: 10/21/16 14:34 Dose: 4 mg Warfarin Sodium (Coumadin) 4 mg PO ONETIME ONE Stop: 10/22/16 14:01 Last Admin: 10/22/16 13:21 Dose: 4 mg Warfarin Sodium (Coumadin) 4 mg PO DAILY@1400 [facility] Last Admin: 10/23/16 13:27 Dose: 4 mg Warfarin Sodium (Coumadin) 2 mg PO ONETIME ONE Stop: 10/26/16 14:01 Last Admin: 10/26/16 13:33 Dose: 2 mg Warfarin Sodium (Coumadin) 2 mg PO ONETIME ONE Stop: 10/27/16 14:01 Last Admin: 10/27/16 13:51 Dose: 2 mg Warfarin Sodium (Coumadin) 2 mg PO DAILY@1400 [facility] Stop: 10/29/16 14:01 Last Admin: 10/29/16 13:27 Dose: 2 mg Warfarin Sodium (Coumadin) 4 mg PO ONETIME ONE Stop: 10/30/16 14:01 Last Admin: 10/30/16 14:14 Dose: 4 mg Warfarin Sodium (Coumadin) 4 mg PO ONETIME ONE Stop: 10/31/16 14:01 Last Admin: 10/31/16 14:17 Dose: 4 mg Warfarin Sodium (Coumadin) 4 mg PO DAILY@1400 [facility] Stop: 11/02/16 14:01 Last Admin: 11/02/16 14:23 Dose: 4 mg Warfarin Sodium (Coumadin) 2 mg PO ONETIME ONE Stop: 11/05/16 14:01 Last Admin: 11/05/16 16:49 Dose: 2 mg Warfarin Sodium (Coumadin) 3 mg PO ONETIME ONE Stop: 11/06/16 14:01 Last Admin: 11/06/16 14:35 Dose: 3 mg Warfarin Sodium (Coumadin) 3 mg PO ONETIME ONE Stop: 11/07/16 14:01 Last Admin: 11/07/16 13:42 Dose: 3 mg Warfarin Sodium (Coumadin) 3 mg PO DAILY@1400 [facility] Stop: 11/08/16 14:01 Last Admin: 11/08/16 14:54 Dose: 3 mg - Exam Quality Assessment: Denies: supplemental oxygen General: Reports: alert, oriented Neck: Reports: supple Lungs: Reports: Clear to auscultation, Normal respiratory effort Cardiovascular: Reports: Regular Rate, Regular Rhythm Abdomen: Reports: bowel sounds present, soft, no tenderness Extremities: Reports: edema (r leg) Skin: Reports: warm, other (r. leg wounds with dressing) Neurological: Reports: no new focal deficit Psy/Mental Status: Reports: alert, normal affect, normal mood *Q Meaningful Use (DIS) - VTE *Q VTE Criteria *Q: - Stroke *Q Stroke Criteria *Q: - AMI *Q AMI Criteria *Q:
[2016-11-09] MEDS: Calcium Carbonate/Vitamin D3 1250 MG-200 Unit Tab PO SCH (12:36)
== END 2016-11-09 14:00 | disposition home or self-care (01) | DRG 593 ==
LOC: UNDOADMIN 14:18 → DL.MS 14:18
PROVIDERS: ADMIT Internal Medicine; ATTEND Internal Medicine
DX: L97.819 Non-pressure chronic ulcer of other part of right lower leg with unspecified severity (principal); I50.32 Chronic diastolic (congestive) heart failure; D62 Acute posthemorrhagic anemia; I48.91 Unspecified atrial fibrillation; K21.9 Gastro-esophageal reflux disease without esophagitis; F41.8 Other specified anxiety disorders; I10 Essential (primary) hypertension; F03.90 Unspecified dementia, unspecified severity, without behavioral disturbance, psychotic disturbance, mood disturbance, and anxiety; G62.9 Polyneuropathy, unspecified; I25.10 Atherosclerotic heart disease of native coronary artery without angina pectoris; E78.00 Pure hypercholesterolemia, unspecified; Z98.890 Other specified postprocedural states; Z79.899 Other long term (current) drug therapy; Z88.8 Allergy status to other drugs, medicaments and biological substances; Z95.0 Presence of cardiac pacemaker; Z79.01 Long term (current) use of anticoagulants
CPT/HCPCS: 36415; 80048; 81001; 85014; 85018; 85025; 85027; 85610; 97110-GO; 97110-GP; 97116-GP; 97140-GO; 97161-GP; 97165-GO; 97168-GO; 97530-GO; 97535-GO; A9270-GY

== ENCOUNTER 2021-06-24 06:19 | Day surgery (SDC) | payer MEDICARE, OTHER ==
[~2021-06-24 06:19] MED LIST: Dextrose 5%-0.45% NaCl 1,000 ML IV SCH; Midazolam 1 MG/ML 2 ML SDV ONE; Sodium Chloride 0.9% 10 ML Syringe FLUSH PRN; fentaNYL 100 MCG/2 ML SDV ONE
[2021-06-24] MEDS ORDERED: fentaNYL 100 MCG/2 ML SDV IV ONE ×3 (06:20→07:32)
[2021-06-24] MEDS ORDERED: Midazolam 1 MG/ML 2 ML SDV IV ONE ×4 (06:20→07:36)
[2021-06-24] MEDS ORDERED: Sodium Chloride 0.9% 10 ML Syringe FLUSH SCH (09:00)
[2021-06-24 09:56] VITALS: BP 144/76; PULSE 97
[2021-06-24] MEDS ORDERED: Dextrose 5%-0.45% NaCl 1,000 ML IV SCH (17:15)
== END 2021-06-24 09:45 | disposition home or self-care (01) ==
LOC: DL.ENDO 06:19
PROVIDERS: ATTEND Internal Medicine Gastroenterology
DX: K57.10 Diverticulosis of small intestine without perforation or abscess without bleeding (principal); E66.09 Other obesity due to excess calories; I48.91 Unspecified atrial fibrillation; I50.9 Heart failure, unspecified; I25.10 Atherosclerotic heart disease of native coronary artery without angina pectoris; F41.1 Generalized anxiety disorder; E78.5 Hyperlipidemia, unspecified; Z01.812 Encounter for preprocedural laboratory examination; Z98.890 Other specified postprocedural states; Z20.822 Contact with and (suspected) exposure to COVID-19; Z88.1 Allergy status to other antibiotic agents; Z88.5 Allergy status to narcotic agent; Z88.8 Allergy status to other drugs, medicaments and biological substances
CPT/HCPCS: 43239; 87077; J2250; J3010; J7042; U0002